=== PATIENT | female | born 1930 | race Caucasian/White ===

== ENCOUNTER → 2016-11-18 | Outpatient (CLI) | payer MEDICARE, OTHER | LOC: RAD 08:04 | PROVIDERS: ATTEND Internal Medicine | DX: C18.2 Malignant neoplasm of ascending colon (principal) | CPT/HCPCS: 71260; 74177 ==

== ENCOUNTER → 2016-12-05 | Outpatient (CLI) | payer MEDICARE, OTHER | LOC: RAD 18:54 | PROVIDERS: ATTEND Internal Medicine | DX: C18.2 Malignant neoplasm of ascending colon (principal) | CPT/HCPCS: 78815; A9552 ==

== ENCOUNTER → 2017-04-18 | Outpatient (CLI) | payer MEDICARE, OTHER ==
[2017-04-18 12:12] LABS: ABSOLUTE BASOPHILS # (AUTO) 0.1 10^3/uL (0.0-0.2); ABSOLUTE EOSINOPHILS # (AUTO) 0.4 10^3/uL (0.0-0.6); ABSOLUTE MONOCYTES (AUTO) 0.8 10^3/uL (0.1-1.4); ABSOLUTE NEUT (AUTO) 5.8 10^3/uL (1.7-8.2); BASOPHILS % (AUTO) 1.1 % (0-2); EOSINOPHILS % (AUTO) 5.3 % (0-6); HEMATOCRIT 38.2 % (36.0-47.0); HEMOGLOBIN 13.5 g/dL (12.0-15.5); HGB HCT DIFFERENCE 2.3; LYMPHOCYTES % (AUTO) 12.1 % (13-45); MEAN CORPUSCULAR HEMOGLOBIN 32.2 pg (27.0-33.4); MEAN CORPUSCULAR HGB CONC 35.5 g/dL (32.0-36.0); MEAN CORPUSCULAR VOLUME 91 fl (80-97); MONOCYTES % (AUTO) 9.5 % (3-13); RED CELL DISTRIBUTION WIDTH 14.1 % (11.5-14.0)
[2017-04-18 12:21] LABS: PROTHROMBIN TIME 13.5 SEC (11.4-15.4)
[2017-04-18 12:22] LABS: PARTIAL THROMBOPLASTIN TIME 35.4 SEC (23.5-35.8)
[2017-04-18 12:47] LABS: ALANINE AMINOTRANSFERASE 42 U/L (9-52); ALBUMIN 4.6 g/dL (3.5-5.0); ALKALINE PHOSPHATASE 84 U/L (38-126); ANION GAP 13 (5-19); ASPARTATE AMINO TRANSFERASE 38 U/L (14-36); BILIRUBIN,DIRECT 0.4 mg/dL (0.0-0.4); BILIRUBIN,TOTAL 0.7 mg/dL (0.2-1.3); BLOOD UREA NITROGEN 28 mg/dL (7-20); CALCIUM 9.5 mg/dL (8.4-10.2); CARBON DIOXIDE 21 mmol/L (22-30); CHLORIDE 105 mmol/L (98-107); CREATININE RESULT 1.08 mg/dL (0.52-1.25); GLUCOSE 106 mg/dL (75-110); POTASSIUM 5.2 mmol/L (3.6-5.0); SODIUM 139.1 mmol/L (137-145); TOTAL PROTEIN 7.9 g/dL (6.3-8.2)
[2017-04-18 13:17] LABS: CARCINOEMBRYONIC ANTIGEN 17.3 ng/mL (<3.0)
== END ==
LOC: OD 10:37
PROVIDERS: ATTEND Surgery
DX: Z85.038 Personal history of other malignant neoplasm of large intestine (principal); R10.9 Unspecified abdominal pain
CPT/HCPCS: 36415; 80053; 82378; 85025; 85610; 85730

== ENCOUNTER → 2017-04-21 | Outpatient (CLI) | payer MEDICARE, OTHER ==
--- NOTE | 2017-04-21 14:57 | RADIOLOGY REPORT (SQ) ---
EXAM DESCRIPTION: CT ABD/PELVIS WITH IV ORAL COMPLETED DATE/TIME: 04/21/2017 9:22 am REASON FOR STUDY: UNSPEC ABD PAIN (R10.9), PERSONAL HX OF OTHE RMALIGNANT NEOPLASM OF LARGE I R10.9 UNSPECIFIED ABDOMINAL PAIN Z85.038 PERSONAL HISTORY OF MALIGNANT NEOPLASM OF LARGE INTE COMPARISON: PET-CT 12/05/2016 CT chest abdomen and pelvis 05/13/2016, 11/18/2016 CT abdomen pelvis 01/25/2016 TECHNIQUE: CT scan of the abdomen and pelvis performed using helical scanning technique with dynamic intravenous contrast injection. Patient drank oral contrast. Images reviewed with lung, soft tissue , and bone windows. Reconstructed coronal and sagittal MPR images reviewed. Delayed images for evalua tion of the urinary system also acquired. All images stored on PACS. All CT scanners at this facility use dose modulation, iterative reconstruction, and/or weight based d osing when appropriate to reduce radiation dose to as low as reasonably achievable (ALARA). [facility]: Dose Right [facility]: CareDose [facility]: Dose Right [facility]: Teradose 4D [facility]: [employer] CONTRAST TYPE AND DOSE: contrast/concentration: Isovue 370.00 mg/ml; Total Contrast Delivered: 91.0 ml; Total Saline Delivered: 70.0 ml RENAL FUNCTION: Creatinine 1.08 RADIATION DOSE: Up-to-date CT equipment and radiation dose reduction techniques were employed. CTDIv ol: 18.2 - 18.6 mGy. DLP: 1786 mGy-cm.. LIMITATIONS: None. FINDINGS: LOWER CHEST: No significant findings. No nodules or infiltrates. LIVER: Normal size. No masses. No dilated ducts. Nodular surface suggesting cirrhosis. Stable 1.7 cm hepatic cyst at the falciform ligament. SPLEEN: Normal size. No focal lesions. PANCREAS: No masses. No significant calcifications. No adjacent inflammation or peripancreatic fluid collections. Pancreatic duct not dilated. GALLBLADDER: Surgically absent ADRENAL GLANDS: No significant masses or asymmetry. RIGHT KIDNEY AND URETER: No solid masses. Right lower pole 1.4 cm and 2.6 cm cortical cysts No signi ficant calcifications. No hydronephrosis or hydroureter. LEFT KIDNEY AND URETER: No solid masses. Left renal pelvis parapelvic cysts. No significant calcifi cations. No hydronephrosis or hydroureter. AORTA AND VESSELS: Heavily calcified abdominal aorta and renal arteries without aneurysm. Less than 50% stenosis celiac artery, superior mesenteric artery proximally. AV shunting in the left adnexa wi th a prominent left gonadal vein on coronal image 54. Patient may have pelvic congestion syndrome. RETROPERITONEUM: No retroperitoneal adenopathy, hemorrhage or masses. BOWEL AND PERITONEAL CAVITY: No masses or inflammatory changes. No free fluid or peritoneal masses. There is oral contrast throughout the gastrointestinal tract. Post right hemicolectomy. No evidence of bowel obstruction. There are descending and sigmoid colon diverticuli without definite CT signs of acute diverticulitis. No diverticular abscess or perforation is identified. APPENDIX: Surgically absent PELVIS: No mass. No free fluid. Normal bladder. Normal size postmenopausal female pelvic organs. P rominent left gonadal vein on coronal reconstruction image 54, suggests AV shunting in the left adnex a. Question pelvic congestion syndrome. ABDOMINAL WALL: Fat containing umbilical hernia BONES: Advanced osteoarthritis both hips OTHER: No other significant finding. IMPRESSION: No acute findings. TECHNICAL DOCUMENTATION: JOB ID: [id number] Quality ID # [id number]: Final reports with documentation of one or more dose reduction techniques (e.g., Au tomated exposure control, adjustment of the mA and/or kV according to patient size, use of iterative reconstruction technique) 2010 [employer]- All Rights Reserved
== END ==
LOC: RAD 08:30
PROVIDERS: ATTEND Surgery
DX: R10.9 Unspecified abdominal pain (principal); Z85.038 Personal history of other malignant neoplasm of large intestine; K42.9 Umbilical hernia without obstruction or gangrene
CPT/HCPCS: 74177

== ENCOUNTER → 2017-04-26 | Outpatient (CLI) | payer MEDICARE, OTHER ==
--- NOTE | 2017-04-26 13:39 | RADIOLOGY REPORT (SQ) ---
EXAM DESCRIPTION: CT CHEST WITH COMPLETED DATE/TIME: 04/26/2017 8:17 am REASON FOR STUDY: EMPHYSEMA J43.9 EMPHYSEMA, UNSPECIFIED COMPARISON: 11/18/2016 TECHNIQUE: CT scan of the chest performed using helical scanning technique with dynamic intravenous contrast injection. Images reviewed with lung, soft tissue and bone windows. Reconstructed coronal and sagittal MPR images reviewed. All images stored on PACS. All CT scanners at this facility use dose modulation, iterative reconstruction, and/or weight based d osing when appropriate to reduce radiation dose to as low as reasonably achievable (ALARA). [facility]: Dose Right [facility]: CareDose [facility]: Dose Right [facility]: Teradose 4D [facility]: [employer] CONTRAST TYPE AND DOSE: contrast/concentration: Isovue 370.00 mg/ml; Total Contrast Delivered: 80.0 ml; Total Saline Delivered: 55.0 ml RENAL FUNCTION: Creatinine 1.1 BUN 28 RADIATION DOSE: Up-to-date CT equipment and radiation dose reduction techniques were employed. CTDIv ol: 6.5 mGy. DLP: 235 mGy-cm. . LIMITATIONS: None. FINDINGS: LUNGS AND PLEURA: There is a 10 x 12 mm opacification in the medial aspect of the right lo wer hemithorax adjacent to the mediastinum. This is seen on image 100 series 4. No other pulmonary abnormality is demonstrated. HILAR AND MEDIASTINAL STRUCTURES: There are some precarinal nodes that are stable. HEART AND VASCULAR STRUCTURES: No aneurysm or dissection. No central pulmonary emboli. No pericardi al effusion. HARDWARE: None in the chest. UPPER ABDOMEN: The spleen appears slightly prominent. This is difficult to assess, because the entir e spleen is not included in the study. THYROID AND OTHER SOFT TISSUES: No masses. No adenopathy. BONES: No significant finding. OTHER: No other significant finding. IMPRESSION: 1. There is a 10 x 12 mm opacity in the medial right lung base. Uncertain etiology. P ossible pleural/ parenchymal scarring, except that is not seen on the prior study. Possible limited inflammatory reaction. Neoplasm cannot be excluded. 2. The spleen may be enlarged. Consider ultrasound for further evaluation. 3. There are some stable mediastinal nodes. TECHNICAL DOCUMENTATION: JOB ID: [id number] Quality ID # 436: Final reports with documentation of one or more dose reduction techniques (e.g., Au tomated exposure control, adjustment of the mA and/or kV according to patient size, use of iterative reconstruction technique) 2010 [employer]- All Rights Reserved
== END ==
LOC: RAD 07:41
PROVIDERS: ATTEND Surgery
DX: J43.9 Emphysema, unspecified (principal)
CPT/HCPCS: 71260

== ENCOUNTER 2017-05-31 08:20 | Day surgery (SDC) | payer MEDICARE, OTHER ==
[~2017-05-31 08:20] MED LIST: DIPHENHYDRAMINE HCL 50 MG/ML VIAL ONE; EPINEPHRINE INJ 1 MG/10 ML DISP.SYRIN ONE; FLUMAZENIL INJ 0.5 MG/5 ML VIAL ONE; GLUCAGON,HUMAN RECOMB 1 MG INJ ONE; NALOXONE HCL INJ/PF 0.4 MG/1 ML SDV ONE; ONDANSETRON HCL INJ/PF 4 MG/2 ML SDV ONE
[2017-05-31] MEDS: MIDAZOLAM 2 MG/2 ML INJ ONE ×4 (10:58→11:30)
[2017-05-31] MEDS: FENTANYL CITRATE INJ/PF 100 MCG/2 ML AMPUL ONE ×3 (11:00→11:24)
--- NOTE | 2017-05-31 12:16 | Operative Report ---
Operative Report DATE OF SURGERY: 05/31/17 PREOPERATIVE DIAGNOSIS: Abdominal pain, history of colon cancer, elevated CEA. POSTOPERATIVE DIAGNOSIS: Same. Anastomotic polyps. Proximal sigmoid colon polyp. Diverticulosis of the colon. OPERATION: Esophagogastroduodenoscopy. Colonoscopy with anastomotic polyp biopsies. Snare polypectomy of sigmoid colon polyp. SURGEON: CINTHIA BRADY ANESTHESIA: Moderate Sedation TISSUE REMOVED OR ALTERED: Anastomotic polyps. Proximal sigmoid colon polyp. COMPLICATIONS: None ESTIMATED BLOOD LOSS: Minimal INTRAOPERATIVE FINDINGS: Polypoid mass along the coloileal anastomosis involving about half of the anastomosis. Scattered diverticuli throughout the colon. Half centimeter sessile polyp at the proximal aspect of the sigmoid colon. Normal-appearing stomach and esophagus and duodenum. PROCEDURE: Informed consent was obtained. Patient was brought to the endoscopy suite. IV sedation with Versed and fentanyl was administered. Endoscope was passed via the patient's mouth into the second portion of the duodenum. Duodenum appeared to be normal. The stomach mucosa appeared normal. There were no ulcers. Retroflexed view demonstrated a normal-appearing GE junction. The esophagus appeared normal. Patient was repositioned. Digital rectal exam revealed no palpable perianal masses. Endoscope was passed via the patient's anus it was fed to the transverse colon ileal anastomosis. At the anastomosis encompassing about half of the anastomosis there was friable polypoid-like mass. Multiple biopsies were taken of this area. The bowel prep was fair with the liquid stool throughout the colon requiring aspiration and irrigation to obtain adequate visualization. The colon was markedly redundant making the visualization difficult as well. There were scattered diverticuli throughout the colon especially the sigmoid colon. At the proximal aspect of the sigmoid colon there was 1/2 cm sessile polyp which was snare polypectomy. The specimen was retrieved. The specimen came out in 2 pieces. Remainder of the sigmoid colon appeared normal other than the diverticuli. The rectum appeared normal. Patient tolerated procedure well with no apparent complications and was taken to the recovery area in stable condition. Endoscopy remarkable for polypoid lesion along the anastomosis.will await biopsy report. Proximal aspect of the sigmoid colon sessile polyp status post successful snare polypectomy. Will await biopsy report. I will follow-up with the patient.
--- NOTE | 2017-05-31 12:18 | PDOC DISCHARGE SUMMARY ---
Discharge Summary (SDC) - Discharge Final Diagnosis: Anastomotic polyps. Proximal sigmoid colon polyp. Diverticulosis of the colon. History of colon cancer. Date of Surgery: 05/31/17 Discharge Date: 05/31/17 Condition: Good Treatment or Instructions: Esophagogastroduodenoscopy. Colonoscopy with biopsies of anastomotic polyps. Snare polypectomy of sigmoid colon polyp. May discharge patient home when met discharge criteria. Follow-up with me in 1-2 weeks. Do not use Ambien for the next 2 days. May resume Ambien after 2 days. Otherwise resume all home medications. Referrals: ARACELI ROSE MD [Primary Care Provider] - Discharge Diet: As Tolerated Discharge Activity: Activity As Tolerated Report the Following to Your Physician Immediately: Unusual Bleeding
[2017-05-31 13:12] VITALS: BP 145/61
== END 2017-05-31 13:20 | disposition home or self-care (01) ==
LOC: END 08:20
PROVIDERS: ATTEND Surgery
PROC: 0DBN8ZX Excision of Sigmoid Colon, Via Natural or Artificial Opening Endoscopic, Diagnostic (ICD-10-PCS; principal; 2017-05-31 10:00)
PROC: 0DBE8ZX Excision of Large Intestine, Via Natural or Artificial Opening Endoscopic, Diagnostic (ICD-10-PCS; 2017-05-31 10:00)
PROC: 0DJ08ZZ Inspection of Upper Intestinal Tract, Via Natural or Artificial Opening Endoscopic (ICD-10-PCS; 2017-05-31 10:00)
DX: K63.5 Polyp of colon (principal); K57.30 Diverticulosis of large intestine without perforation or abscess without bleeding; R97.0 Elevated carcinoembryonic antigen [CEA]; Z85.038 Personal history of other malignant neoplasm of large intestine; E03.9 Hypothyroidism, unspecified; I10 Essential (primary) hypertension; R10.9 Unspecified abdominal pain; M19.90 Unspecified osteoarthritis, unspecified site; Z87.891 Personal history of nicotine dependence; Z79.899 Other long term (current) drug therapy
CPT/HCPCS: 43235; 45380; 45385; 88305 ×2; J2250; J3010; J0171; J1200; J1610; J2310; J2405; J3490

== ENCOUNTER → 2017-12-19 | Outpatient (CLI) | payer MEDICARE, OTHER ==
--- NOTE | 2017-12-19 14:23 | RADIOLOGY REPORT (SQ) ---
EXAM DESCRIPTION: CT CHEST WITHOUT COMPLETED DATE/TIME: 12/19/2017 1:11 pm REASON FOR STUDY: COLON CA (C18.2) C18.2 MALIGNANT NEOPLASM OF ASCENDING COLON COMPARISON: 04/26/2017 TECHNIQUE: CT scan performed of the chest without intravenous contrast. Images reviewed with lung, soft tissue and bone windows. Reconstructed coronal and sagittal MPR images reviewed. All images st ored on PACS. All CT scanners at this facility use dose modulation, iterative reconstruction, and/or weight based d osing when appropriate to reduce radiation dose to as low as reasonably achievable (ALARA). [facility]: Dose Right [facility]: CareDose [facility]: Dose Right [facility]: Teradose 4D [facility]: [employer] RADIATION DOSE: CT Rad equipment meets quality standard of care and radiation dose reduction techniq ues were employed. CTDIvol: 6.0 mGy. DLP: 247 mGy-cm. mGy. LIMITATIONS: No technical limitations. FINDINGS: LUNGS AND PLEURA: There has been interval development of bilateral patchy reticulonodular primarily pleural-based lesions with relative sparing of the left upper lobe. Largest nodule is part solid measuring about 1.5 cm in the lateral segment of the middle lobe. No effusions. HILAR AND MEDIASTINAL STRUCTURES: Stable small mediastinal nodes measuring up to about 1 cm in short axis. No bulky adenopathy. HEART AND VASCULAR STRUCTURES: No aneurysm. No pericardial effusion. UPPER ABDOMEN: Cirrhosis. THYROID AND OTHER SOFT TISSUES: No masses. No adenopathy. BONES: No significant finding. HARDWARE: None in the chest. OTHER: No other significant findings. IMPRESSION: Bilateral lung nodules could represent metastatic disease, inflammatory or infectious pr ocess. TECHNICAL DOCUMENTATION: JOB ID: [id number] Quality ID # 436: Final reports with documentation of one or more dose reduction techniques (e.g., Au tomated exposure control, adjustment of the mA and/or kV according to patient size, use of iterative reconstruction technique) 2010 [employer]- All Rights Reserved Reading location - IP/workstation name: [email or web address]
== END ==
LOC: RAD 12:50
PROVIDERS: ATTEND Internal Medicine
DX: C18.2 Malignant neoplasm of ascending colon (principal); R91.8 Other nonspecific abnormal finding of lung field
CPT/HCPCS: 71250

== ENCOUNTER → 2018-02-03 | Outpatient (CLI) | payer MEDICARE, OTHER ==
--- NOTE | 2018-02-03 14:25 | RADIOLOGY REPORT (SQ) ---
EXAM DESCRIPTION: CT CHEST WITHOUT COMPLETED DATE/TIME: 02/03/2018 1:00 pm REASON FOR STUDY: C18.2 MALIGNANT NEOPLASM OF ASCENDING COLON C18.2 MALIGNANT NEOPLASM OF ASCENDING COLON COMPARISON: 12/19/2017 TECHNIQUE: CT scan performed of the chest without intravenous contrast. Images reviewed with lung, soft tissue and bone windows. Reconstructed coronal and sagittal MPR images reviewed. All images st ored on PACS. All CT scanners at this facility use dose modulation, iterative reconstruction, and/or weight based d osing when appropriate to reduce radiation dose to as low as reasonably achievable (ALARA). [facility]: Dose Right [facility]: CareDose [facility]: Dose Right [facility]: Teradose 4D [facility]: [employer] RADIATION DOSE: CT Rad equipment meets quality standard of care and radiation dose reduction techniq ues were employed. CTDIvol: 6.6 mGy. DLP: 259 mGy-cm. mGy. LIMITATIONS: No technical limitations. FINDINGS: LUNGS AND PLEURA: Apical pleural thickening. There are areas of scarring in each lung, ri ght more than left. Nodules described on the prior report have resolved. HILAR AND MEDIASTINAL STRUCTURES: Nonspecific mediastinal nodes are stable. HEART AND VASCULAR STRUCTURES: No aneurysm. No pericardial effusion. UPPER ABDOMEN: No significant findings. Limited exam. THYROID AND OTHER SOFT TISSUES: No masses. No adenopathy. BONES: No osseous lesions are seen. HARDWARE: None in the chest. OTHER: No other significant findings. IMPRESSION: Chronic pulmonary findings. It appears that the nodules seen on the prior study where i n fact infectious or inflammatory. The appearance of the chest does not suggest metastatic disease. TECHNICAL DOCUMENTATION: JOB ID: [id number] Quality ID # 436: Final reports with documentation of one or more dose reduction techniques (e.g., Au tomated exposure control, adjustment of the mA and/or kV according to patient size, use of iterative reconstruction technique) 2010 [employer] All Rights Reserved Reading location - IP/workstation name: [email or web address]
== END ==
LOC: RAD 14:19
PROVIDERS: ATTEND Internal Medicine
DX: C18.2 Malignant neoplasm of ascending colon (principal)
CPT/HCPCS: 71250

== ENCOUNTER → 2018-04-20 | Outpatient (CLI) | payer MEDICARE, OTHER ==
--- NOTE | 2018-04-20 10:35 | RADIOLOGY REPORT (SQ) ---
EXAM DESCRIPTION: CT ABD/PELVIS WITH IV ORAL COMPLETED DATE/TIME: 04/20/2018 9:31 am REASON FOR STUDY: COLON CA C18.2 MALIGNANT NEOPLASM OF ASCENDING COLON COMPARISON: 04/21/2017 TECHNIQUE: CT scan of the abdomen and pelvis performed with intravenous and oral contrast using alfredo jo scanning technique with dynamic intravenous contrast injection. Images reviewed with lung, soft t issue, and bone windows. Reconstructed coronal and sagittal MPR images reviewed. Delayed images for e valuation of the urinary system also acquired. All images stored on PACS. All CT scanners at this facility use dose modulation, iterative reconstruction, and/or weight based d osing when appropriate to reduce radiation dose to as low as reasonably achievable (ALARA). [facility]: Dose Right [facility]: CareDose [facility]: Dose Right [facility]: Teradose 4D [facility]: [employer] CONTRAST TYPE AND DOSE: 93 cc Omnipaque 350- low osmolar. RENAL FUNCTION: Creatinine 1.2 RADIATION DOSE: . LIMITATIONS: None. FINDINGS: LOWER CHEST: No significant findings. No nodules or infiltrates. LIVER: Sub capsular nodularity. Stable cyst near the falciform ligament. SPLEEN: Normal size. No focal lesions. PANCREAS: No masses. No significant calcifications. No adjacent inflammation or peripancreatic fluid collections. Pancreatic duct not dilated. GALLBLADDER: Surgically absent. ADRENAL GLANDS: No significant masses or asymmetry. RIGHT KIDNEY AND URETER: Cortical cysts. No solid masses. No significant calcifications. No hydr onephrosis or hydroureter. LEFT KIDNEY AND URETER: Parapelvic cysts. No solid masses. No significant calcifications. No hyd ronephrosis or hydroureter. AORTA AND VESSELS: No aneurysm. RETROPERITONEUM: No retroperitoneal adenopathy, hemorrhage or masses. BOWEL AND PERITONEAL CAVITY: Prior hemicolectomy. Sigmoid diverticulosis. No ascites or free air. APPENDIX: Surgically absent. PELVIS: No significant masses. Normal bladder. No free fluid. ABDOMINAL WALL: No significant hernia. BONES: No acute findings. OTHER: No other significant finding. IMPRESSION: Stable exam. No evidence of local recurrence or metastatic disease. TECHNICAL DOCUMENTATION: JOB ID: [id number] Quality ID # [id number]: Final reports with documentation of one or more dose reduction techniques (e.g., Au tomated exposure control, adjustment of the mA and/or kV according to patient size, use of iterative reconstruction technique) 2010 [employer]- All Rights Reserved Reading location - IP/workstation name: [email or web address]
== END ==
LOC: RAD 08:34
PROVIDERS: ATTEND Physician Assistant Medical
DX: C18.2 Malignant neoplasm of ascending colon (principal)
CPT/HCPCS: 74177; 82565

== ENCOUNTER → 2018-08-16 | Outpatient (CLI) | payer MEDICARE, OTHER ==
--- NOTE | 2018-08-16 12:36 | RADIOLOGY REPORT (SQ) ---
EXAM DESCRIPTION: CT LTD RENAL STONE PROTOCOL ON COMPLETED DATE/TIME: 08/16/2018 12:17 pm REASON FOR STUDY: R10.9 UNSPECIFIED ABDOMINAL PAIN R31.29 OTHER MICROSCOPIC HEMATURIA R10.9 UNSPECI FIED ABDOMINAL PAIN R31.29 OTHER MICROSCOPIC HEMATURIA COMPARISON: 04/20/2018 TECHNIQUE: CT scan of the abdomen and pelvis performed without intravenous or oral contrast. Images reviewed with lung, soft tissue, and bone windows. Reconstructed coronal and sagittal MPR images revi ewed. All images stored on PACS. All CT scanners at this facility use dose modulation, iterative reconstruction, and/or weight based d osing when appropriate to reduce radiation dose to as low as reasonably achievable (ALARA). [facility]: Dose Right [facility]: CareDose [facility]: Dose Right [facility]: Teradose 4D [facility]: Smart [employer] RADIATION DOSE: CT Rad equipment meets quality standard of care and radiation dose reduction techniq ues were employed. CTDIvol: 15.7 mGy. DLP: 813 mGy-cm.mGy. LIMITATIONS: None. FINDINGS: LOWER CHEST: Enlarged heart, stable. NON-CONTRASTED LIVER, SPLEEN, ADRENALS: Evaluation limited by lack of IV contrast. No identified sign ificant masses. Unchanged hypoattenuation along the falciform ligament. PANCREAS: No masses. No peripancreatic inflammatory changes. GALLBLADDER: Surgically absent. RIGHT KIDNEY AND URETER: No suspicious masses. Stable right renal cyst. Assessment limited by lack of IV contrast. No significant calcifications. No hydronephrosis or hydroureter. LEFT KIDNEY AND URETER: No suspicious masses. Assessment limited by lack of IV contrast. No signifi cant calcifications. No hydronephrosis or hydroureter. AORTA AND RETROPERITONEUM: Scattered aortoiliac atherosclerosis. No aneurysm. BOWEL AND PERITONEAL CAVITY: Scattered colonic diverticula. No evidence of intestinal obstruction. No focal bowel wall thickening. Evidence of prior partial right colon resection. APPENDIX: Surgically absent. PELVIS, BLADDER, AND ABDOMINAL WALL:No abnormal masses. No free fluid. Bladder normal. BONES: No acute bony abnormality. No discrete osseous lesions. OTHER: No other significant finding. IMPRESSION: No evidence of nephrolithiasis or obstructive uropathy. No additional evidence of acute intra-abdominal/pelvic process. COMMENT: Quality ID # 436: Final reports with documentation of one or more dose reduction techniques (e.g., Automated exposure control, adjustment of the mA and/or kV according to patient size, use of iterative reconstruction technique) TECHNICAL DOCUMENTATION: JOB ID: [id number] [employer]- All Rights Reserved Reading location - IP/workstation name: [email or web address]-[email or web address]
== END ==
LOC: RAD 12:51
PROVIDERS: ATTEND Internal Medicine
DX: R10.9 Unspecified abdominal pain (principal); R31.29 Other microscopic hematuria
CPT/HCPCS: 76380

== ENCOUNTER → 2019-03-21 | Outpatient (CLI) | payer MEDICARE, OTHER ==
--- NOTE | 2019-03-21 15:13 | RADIOLOGY REPORT (SQ) ---
EXAM DESCRIPTION: CHEST 2 VIEWS COMPLETED DATE/TIME: 03/21/2019 3:04 pm REASON FOR STUDY: K74.69 OTHER CIRRHOSIS OF LIVER K74.69 OTHER CIRRHOSIS OF LIVER COMPARISON: July 2016. NUMBER OF VIEWS: Two view. TECHNIQUE: Frontal and lateral radiographic views of the chest acquired. LIMITATIONS: None. FINDINGS: LUNGS AND PLEURA: Chronic interstitial changes pleural thickening in the apices. No focal infiltrates, masses or pneumothorax. No pleural effusion. Attenuated blood vessels and flattened hem i-diaphragms. MEDIASTINUM AND HILAR STRUCTURES: No masses. No contour abnormalities. HEART AND VASCULAR STRUCTURES: Heart normal in size and contour. No evidence for failure. BONES: No acute findings. Degenerative changes in the spine. HARDWARE: None in the chest. OTHER: No other significant finding. IMPRESSION: COPD. CHRONIC SCARRING. NO ACUTE RADIOGRAPHIC FINDING IN THE CHEST. TECHNICAL DOCUMENTATION: JOB ID: [id number] [employer]- All Rights Reserved Reading location - IP/workstation name: [email or web address]
[2019-03-21 15:42] LABS: HEMATOCRIT 35.4 % (36.0-47.0); MEAN CORPUSCULAR HEMOGLOBIN 30.2 pg (27.0-33.4); MEAN CORPUSCULAR HGB CONC 33.9 g/dL (32.0-36.0); MEAN CORPUSCULAR VOLUME 89 fl (80-97); PLATELET COUNT 248 10^3/uL (150-450); RED BLOOD COUNT 3.97 10^6/uL (3.72-5.28)
[2019-03-21 16:16] LABS: ALANINE AMINOTRANSFERASE 25 U/L (9-52); ALBUMIN 4.3 g/dL (3.5-5.0); ALKALINE PHOSPHATASE 69 U/L (38-126); ANION GAP 11 (5-19); ASPARTATE AMINO TRANSFERASE 23 U/L (14-36); BILIRUBIN,DIRECT 0.3 mg/dL (0.0-0.4); BILIRUBIN,TOTAL 0.5 mg/dL (0.2-1.3); BLOOD UREA NITROGEN 25 mg/dL (7-20); CALCIUM 9.4 mg/dL (8.4-10.2); CARBON DIOXIDE 23 mmol/L (22-30); CHLORIDE 105 mmol/L (98-107); GLUCOSE 116 mg/dL (75-110); TOTAL PROTEIN 7.7 g/dL (6.3-8.2)
[2019-03-21 16:24] LABS: POTASSIUM 6.1 mmol/L (3.6-5.0)
== END ==
LOC: RAD 14:36
PROVIDERS: ATTEND Internal Medicine Gastroenterology
DX: K74.69 Other cirrhosis of liver (principal); J44.9 Chronic obstructive pulmonary disease, unspecified
CPT/HCPCS: 36415; 71046; 80048; 80076; 82105; 82728; 85027

== ENCOUNTER 2019-03-23 14:51 | Emergency (ER) | payer MEDICARE ==
--- NOTE | 2019-03-23 16:29 | ER Document Report ---
ED Medical Screen (RME) - General Chief Complaint: Abnormal Lab Results Stated Complaint: ABNORMAL LAB Time Seen by Provider: 03/23/19 16:23 Primary Care Provider: JACKELINE TRENT MD [Primary Care Provider] - Follow up as needed Mode of Arrival: Ambulatory Information source: Patient Notes: 89-year-old female presented to ED for complaint of elevated potassium. She st ates she was sent over by [place]. She states she had a blood draw yesterday and today and they sent her to the ER because her potassium was high there is a slip and says that her potassium was 6.0. When I looked at her lab specimen in the computer it is 6.0. I have put a copy of the lab slip in her chart. Patient is alert oriented respirations regular and unlabored speaking in full sentences. She states she is a little tired but otherwise she is not having any problems. 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 fib. She states she has had a colon resection. She states she was a former smoker but does not smoke drink or do any drugs at this time. I have greeted and performed a rapid initial assessment of this patient. A com prehensive ED assessment and evaluation of the patient, analysis of test results and completion of medical decision making process will be conducted by an additional ED providers. Dictation of this chart was performed using voice recognition software; therefore, there may be some unintended grammatical errors. TRAVEL OUTSIDE OF THE [place] IN LAST 30 DAYS: No - Related Data Allergies/Adverse Reactions: Sulfa (Sulfonamide Antibiotics) Allergy (Intermediate, Verified 05/31/17 08:36) FLU-LIKE SYMPTOMS Penicillins Allergy (Mild, Verified 05/31/17 08:36) Hives pneumococcal vaccine Allergy (Verified 05/31/17 08:36) Arm Marcs Past Medical History - Past Medical History Cardiac Medical History: Reports: Hx Hypercholesterolemia, Hx Hypertension Denies: Hx Atrial Fibrillation, Hx Congestive Heart Failure, Hx Coronary Artery Disease, Hx Heart Attack, Hx Peripheral Vascular Disease, Hx Pulmonary Embolism, Hx Heart Murmur Pulmonary Medical History: Reports: Hx COPD, Hx Sleep Apnea - CPAP Denies: Hx Asthma, Hx Bronchitis, Hx Pneumonia, Hx Respiratory Failure, Hx Tuberculosis Neurological Medical History: Denies: Hx Cerebrovascular Accident, Hx Seizures Endocrine Medical History: Reports: Hx Hypothyroidism. Denies: Hx Graves' Disease, Hx Hyperthyroidism Renal/ Medical History: Denies: Hx End Stage Renal Disease, Hx Kidney Stones, Hx Peritoneal Dialysis Malignancy Medical History: Denies: Hx Leukemia, Hx Lung Cancer GI Medical History: Reports: Hx Diverticulitis. Denies: Hx Crohn's Disease, Hx Gastroesophageal Reflux Disease, Hx Hiatal Hernia, Hx Irritable Bowel, Hx Liver Failure, Hx Pancreatitis, Hx Ulcer Musculoskeltal Medical History: Reports Hx Arthritis - RA, Denies Hx Fibromyalgia, Denies Hx Muscular Dystrophy, Denies Hx Systemic Lupus Erythematosus Psychiatric Medical History: Traumatic Medical History: Denies: Hx Fractures Infectious Medical History: Denies: Hx HIV Past Surgical History: Reports: Hx Cholecystectomy, Hx Tonsillectomy. Denies: Hx Appendectomy, Hx Bowel Surgery, Hx Section, Hx Colostomy, Hx Coronary Artery Bypass Graft, Hx Gastric Bypass Surgery, Hx Herniorrhaphy, Hx Hysterectomy, Hx Mastectomy, Hx Open Heart Surgery, Hx Pacemaker, Hx Tubal Ligation - Immunizations Hx Diphtheria, Pertussis, Tetanus Vaccination: Yes Influenza Administration Date for 05/2017 - 10/2017 Season: 04/29/17 Physical Exam - Vital signs Vitals: Temp Pulse Resp BP Pulse Ox 98.4 F 70 18 164/65 H 96 03/23/19 15:19 03/23/19 15:19 03/23/19 15:19 03/23/19 15:19 03/23/19 15:19 Course - Vital Signs Vital signs: Temp Pulse Resp BP Pulse Ox 98.4 F 70 18 164/65 H 96 03/23/19 15:19 03/23/19 15:19 03/23/19 15:19 03/23/19 15:19 03/23/19 15:19 Doctor's Discharge - Discharge Referrals: JACKELINE TRENT MD [Primary Care Provider] - Follow up as needed
[2019-03-23] MEDS ORDERED: NORMAL SALINE 500 ML IV ONE (16:31)
[2019-03-23 17:30] LABS: ABSOLUTE BASOPHILS # (AUTO) 0.1 10^3/uL (0.0-0.2); ABSOLUTE EOSINOPHILS # (AUTO) 0.5 10^3/uL (0.0-0.6); ABSOLUTE LYMPHOCYTES (AUTO) 0.9 10^3/uL (0.5-4.7); ABSOLUTE MONOCYTES (AUTO) 0.8 10^3/uL (0.1-1.4); ABSOLUTE NEUT (AUTO) 6.4 10^3/uL (1.7-8.2); BASOPHILS % (AUTO) 1.3 % (0-2); EOSINOPHILS % (AUTO) 5.7 % (0-6); HEMATOCRIT 33.6 % (36.0-47.0); HEMOGLOBIN 11.5 g/dL (12.0-15.5); LYMPHOCYTES % (AUTO) 10.1 % (13-45); MEAN CORPUSCULAR HEMOGLOBIN 30.4 pg (27.0-33.4); MEAN CORPUSCULAR HGB CONC 34.3 g/dL (32.0-36.0); MEAN CORPUSCULAR VOLUME 89 fl (80-97); MONOCYTES % (AUTO) 9.1 % (3-13); PLATELET COUNT 267 10^3/uL (150-450); RED CELL DISTRIBUTION WIDTH 12.7 % (11.5-14.0); SEGMENTED NEUTROPHILS % (AUTO) 73.8 % (42-78); TOTAL CELLS COUNTED % (AUTO) 100 %; WHITE BLOOD COUNT 8.7 10^3/uL (4.0-10.5)
[2019-03-23 18:19] LABS: ALANINE AMINOTRANSFERASE 18 U/L (9-52); ALBUMIN 4.4 g/dL (3.5-5.0); ALKALINE PHOSPHATASE 73 U/L (38-126); ANION GAP 9 (5-19); ASPARTATE AMINO TRANSFERASE 26 U/L (14-36); BILIRUBIN,DIRECT 0.3 mg/dL (0.0-0.4); BILIRUBIN,TOTAL 0.5 mg/dL (0.2-1.3); BLOOD UREA NITROGEN 28 mg/dL (7-20); CALCIUM 9.6 mg/dL (8.4-10.2); CARBON DIOXIDE 23 mmol/L (22-30); CHLORIDE 106 mmol/L (98-107); GLUCOSE 105 mg/dL (75-110); POTASSIUM 5.6 mmol/L (3.6-5.0); TOTAL PROTEIN 8.3 g/dL (6.3-8.2)
[2019-03-23] MEDS ORDERED: NORMAL SALINE 1000 ML 1,000 ML IV ONE (18:20)
--- NOTE | 2019-03-23 19:01 | ER Document Report ---
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 Patient's only complaint is generalized fatigue that has been ongoing for 3 weeks. Patient denies any headache, nausea, vomiting, chest pain, shortness of breath, dysuria, hematuria. TRAVEL OUTSIDE OF THE [place] IN LAST 30 DAYS: No - HPI Onset: Other Onset/Duration: Gradual, Persistent Quality of pain: No pain Severity: None Pain Level: Denies Associated symptoms: None. denies: Chest pain, Productive cough, Headache, Leg swelling, Nausea, Vomiting, Shortness of breath, Weakness Exacerbated by: Walking Relieved by: Remaining still Similar symptoms previously: Yes Recently seen / treated by doctor: Yes - Related Data Allergies/Adverse Reactions: Sulfa (Sulfonamide Antibiotics) Allergy (Intermediate, Verified 05/31/17 08:36) FLU-LIKE SYMPTOMS Penicillins Allergy (Mild, Verified 05/31/17 08:36) Hives pneumococcal vaccine Allergy (Verified 05/31/17 08:36) Arm Swells Past Medical History - General Information source: Patient - Social History Smoking Status: Former Smoker Chew tobacco use (# tins/day): No Frequency of alcohol use: None Drug Abuse: None Lives with: Family Family History: Reviewed & Not Pertinent Patient has suicidal ideation: No Patient has homicidal ideation: No - Past Medical History Cardiac Medical History: Reports: Hx Hypercholesterolemia, Hx Hypertension Denies: Hx Atrial Fibrillation, Hx Congestive Heart Failure, Hx Coronary Artery Disease, Hx Heart Attack, Hx Peripheral Vascular Disease, Hx Pulmonary Embolism, Hx Heart Murmur Pulmonary Medical History: Reports: Hx COPD, Hx Sleep Apnea - CPAP Denies: Hx Asthma, Hx Bronchitis, Hx Pneumonia, Hx Respiratory Failure, Hx Tuberculosis Neurological Medical History: Denies: Hx Cerebrovascular Accident, Hx Seizures Endocrine Medical History: Reports: Hx Hypothyroidism. Denies: Hx Graves' Disease, Hx Hyperthyroidism Renal/ Medical History: Denies: Hx End Stage Renal Disease, Hx Kidney Stones, Hx Peritoneal Dialysis Malignancy Medical History: Denies: Hx Leukemia, Hx Lung Cancer GI Medical History: Reports: Hx Diverticulitis. Denies: Hx Crohn's Disease, Hx Gastroesophageal Reflux Disease, Hx Hiatal Hernia, Hx Irritable Bowel, Hx Liver Failure, Hx Pancreatitis, Hx Ulcer Musculoskeletal Medical History: Reports Hx Arthritis - RA, Denies Hx Fibromyalgia, Denies Hx Muscular Dystrophy, Denies Hx Systemic Lupus Erythematosus Psychiatric Medical History: Traumatic Medical History: Denies: Hx Fractures Infectious Medical History: Denies: Hx HIV Past Surgical History: Reports: Hx Abdominal Surgery - intestine/colon CA, Hx Cholecystectomy, Hx Tonsillectomy. Denies: Hx Appendectomy, Hx Bowel Surgery, Hx Section, Hx Colostomy, Hx Coronary Artery Bypass Graft, Hx Gastric Bypass Surgery, Hx Herniorrhaphy, Hx Hysterectomy, Hx Mastectomy, Hx Open Heart Surgery, Hx Pacemaker, Hx Tubal Ligation - Immunizations Hx Diphtheria, Pertussis, Tetanus Vaccination: Yes Review of Systems - Review of Systems Notes: REVIEW OF SYSTEMS: CONSTITUTIONAL : Denies fever, chills, or sweats. Denies recent illness. Denies weight loss, recent hospitalizations. EENT: Denies visual changes, eye pain. Denies sore throat, oral lesions, difficulty swallowing. CARDIOVASCULAR: Denies chest pain. Denies palpitations. Denies lower extremity edema. RESPIRATORY: Denies cough. Denies shortness of breath, wheezing. GASTROINTESTINAL: Denies abdominal pain or distention. Denies nausea, vomiting, or diarrhea. Denies blood in vomitus, stools, or per rectum. Denies black, tarry stools. Denies constipation. GENITOURINARY: Denies difficulty urinating, painful urination, frequency, blood in urine, or vaginal discharge. MUSCULOSKELETAL: Denies back or neck pain or stiffness. Denies joint pain or swelling. SKIN: Denies rash, lesions or sores. HEMATOLOGIC : Denies easy bruising or bleeding. LYMPHATIC: Denies swollen glands. NEUROLOGICAL: Denies confusion or altered mental status. Denies loss of consciousness. Denies dizziness or lightheadedness. Denies headache. Denies weakness or paralysis. Denies problems difficulty with ambulation, slurred speech. Denies sensory loss, numbness, or tingling. Denies seizures. PSYCHIATRIC: Denies anxiety or stress. Denies depression, suicidal ideation, or homicidal ideation. Denies visual or auditory hallucinations. Physical Exam - Vital signs Vitals: Temp Pulse Resp BP Pulse Ox 98.4 F 70 18 164/65 H 96 03/23/19 15:19 03/23/19 15:19 03/23/19 15:19 03/23/19 15:19 03/23/19 15:19 - Notes Notes: PHYSICAL EXAMINATION: GENERAL: Well-appearing, well-nourished and in no acute distress. HEAD: Atraumatic, normocephalic. EYES: Pupils equal round and reactive to light, extraocular movements intact, conjunctiva are normal. ENT: Nares patent, oropharynx clear without exudates. Dry mucous membranes. NECK: Normal range of motion, supple without lymphadenopathy LUNGS: Breath sounds clear to auscultation bilaterally and equal. No wheezes rales or rhonchi. HEART: Regular rate and rhythm without murmurs ABDOMEN: Soft, nontender, nondistended abdomen. No guarding, no rebound. No masses appreciated. Female : deferred Musculoskeletal: Normal range of motion, no pitting or edema. No cyanosis. NEUROLOGICAL: Cranial nerves grossly intact. Normal speech, normal gait. Normal sensory, motor exams PSYCH: Normal mood, normal affect. SKIN: Warm, Dry, normal turgor, no rashes or lesions noted. Course - Re-evaluation Re-evalutation: 03/23/19 19:02 Laboratory 03/23/19 03/23/19 03/23/19 17:02 17:02 17:02 WBC 8.7 RBC 3.80 Hgb 11.5 L Hct 33.6 L MCV 89 MCH 30.4 MCHC 34.3 RDW 12.7 Plt Count 267 Seg Neutrophils % 73.8 Lymphocytes % 10.1 L Monocytes % 9.1 Eosinophils % 5.7 Basophils % 1.3 Absolute Neutrophils 6.4 Absolute Lymphocytes 0.9 Absolute Monocytes 0.8 Absolute Eosinophils 0.5 Absolute Basophils 0.1 Sodium 138.4 Potassium 5.6 H Chloride 106 Carbon Dioxide 23 Anion Gap 9 BUN 28 H Creatinine 1.42 H Est GFR ( Amer) 42 L Est GFR (Non-Af Amer) 35 L Glucose 105 Calcium 9.6 Total Bilirubin 0.5 Direct Bilirubin 0.3 Neonat Total Bilirubin Not Reportable Neonat Direct Bilirubin Not Reportable Neonat Indirect Bili Not Reportable AST 26 ALT 18 Alkaline Phosphatase 73 Troponin I < 0.012 Total Protein 8.3 H Albumin 4.4 Temp Pulse Resp BP Pulse Ox 98.4 F 70 18 164/65 H 96 03/23/19 15:19 03/23/19 15:19 03/23/19 15:19 03/23/19 15:19 03/23/19 15:19 03/23/19 22:27 89-year-old female presents after outpatient blood work showed a potassium of 6.0. EKG was obtained and showed sinus bradycardia. No peak T waves. QRS within normal limits. Repeat potassium here is 5.6. Patient did receive calcium, insulin, dextrose and Lasix, IV fluids during her ED course. 03/23/19 22:27 On reevaluation patient is resting comfortably. Repeat BMP shows a potassium of 4 and a creatinine of 1.24. Repeat EKG is unchanged. Patient advised to avoid potassium rich foods. No evidence of infection which with causing the patient's fatigue. CBC shows no leukocytosis or anemia. Urinalysis not consistent with urinary tract infection. Urine culture pending. 03/23/19 22:29 Patient was evaluated and treated as appropriate for the patient's presenting symptoms and complaint, with consideration of any critical or life threatening conditions that may be associated with their obtained history and exam as noted above. All results were discussed with patient. Patient provided the opportunity to ask questions, and express concerns. Patient was educated on treatments based on their presumed diagnosis as noted above. At this time we will discharge the patient with return precautions and follow-up recommendations. Verbal discharge instructions given a the bedside. Medication warnings reviewed. Patient is in agreement with this plan and has verbalized understanding of return precautions. After careful consideration I feel that that patient can be safely discharged from the emergency department, they were advised to followup with a primary c are physician in 2-3 days. Dictation on this chart was performed using voice recognition software and may result in unintended grammatical, spelling, syntax or errors. - Vital Signs Vital signs: Temp Pulse Resp BP Pulse Ox 98.4 F 70 27 H 153/62 H 95 03/23/19 15:19 03/23/19 15:19 03/23/19 22:01 03/23/19 22:01 03/23/19 22:01 - Laboratory Result Diagrams: 03/23/19 17:02 03/23/19 21:15 Laboratory results interpreted by me: 03/23/19 03/23/19 03/23/19 17:02 17:02 19:36 Hgb 11.5 L Hct 33.6 L Lymphocytes % 10.1 L Potassium 5.6 H BUN 28 H Creatinine 1.42 H Est GFR ( Amer) 42 L Est GFR (Non-Af Amer) 35 L POC Glucose Total Protein 8.3 H Urine Protein 100 H Ur Leukocyte Esterase SMALL H 03/23/19 03/23/19 20:48 21:15 Hgb Hct Lymphocytes % Potassium BUN 26 H Creatinine Est GFR ( Amer) 50 L Est GFR (Non-Af Amer) 41 L POC Glucose 161 H Total Protein Urine Protein Ur Leukocyte Esterase - EKG Interpretation by Me EKG shows normal: Sinus rhythm Rate: Bradycardia Rhythm: NSR When compared to previous EKG there are: Previous EKG unavailable, Other - Repeat EKG shows sinus rhythm with a heart rate of 59 and a QTC of 436. Discharge - Discharge Clinical Impression: Hyperkalemia, Dehydration, HORTENCIA (acute kidney injury) Fatigue Qualifiers: Fatigue type: unspecified Qualified Code(s): R53.83 - Other fatigue Condition: Good Disposition: HOME, SELF-CARE Instructions: Dehydration ([facility]), Fatigue ([facility]), Kidney Injury ([facility]) Additional Instructions: Your initial potassium was 5.6. After fluid administration it is now 4.3. Your initial creatinine was 1.42 and now after fluid administration it is 1.24. Please avoid potassium rich foods such as banana, avocados. Please be sure to drink plenty of fluids while out in the heat. You can purchase packets of electrolyte replacement solutions such as Pedialyte or propel that you can add to plain water. This will help to make sure that you are getting adequate electrolytes in addition to fluids while working outside. Please return to the emergency department if you pass out, developed diffuse muscle cramping, have persistent vomiting, or have any other symptoms that are worrisome to you. Follow up with your [id number] hours for further care or return to the ED IMMEDIATELY if symptoms worsen or you have any concerns. If you cannot afford to follow up with your primary care physician a list of low cost clinics have been provided at the end of your discharge papers as well. Most prescribed medications have multiple side effects. The safest thing to do is when filling your prescription speak to your pharmacist regarding possible interactions with your normal home medications and over the counter medications such as Ibuprofen, Tylenol, Benadryl. If you experience any symptoms that cause you discomfort or concern you should discontinue the medication immediately and return to the emergency room or call your primary care physician. Forms: Elevated Blood Pressure Referrals: JACKELINE TRENT MD [Primary Care Provider] - Follow up as needed
[2019-03-23] MEDS ORDERED: DEXTROSE 50%-WATER 25 GM/50 ML DISP.SYRIN IV ONE (19:03)
[2019-03-23] MEDS ORDERED: CALCIUM GLUCONATE 1000 MG/10 ML INJ IV ONE (19:03)
[2019-03-23] MEDS ORDERED: INSULIN REG, HUMAN 100 UNIT/ML 3 ML VIAL (PYX) IV ONE (19:03)
[2019-03-23] MEDS ORDERED: FUROSEMIDE INJ/PF 20 MG/2 ML SDV IV ONE (19:07)
[2019-03-23 19:54] LABS: APPEARANCE,URINE SLIGHTLY-CLOUDY; BILIRUBIN,URINE NEGATIVE (NEGATIVE); COLOR,URINE YELLOW; GLUCOSE, URINE NEGATIVE (NEGATIVE); KETONES,URINE NEGATIVE (NEGATIVE); LEUKOCYTE ESTERASE,URINE SMALL (NEGATIVE); NITRITE,URINE NEGATIVE (NEGATIVE); PROTEIN,URINE 100 mg/dL (NEGATIVE); URINE SPECIFIC GRAVITY 1.014; UROBILINOGEN,URINE NEGATIVE mg/dL (<2.0)
[2019-03-23 21:43] LABS: ANION GAP 10 (5-19); BLOOD UREA NITROGEN 26 mg/dL (7-20); CALCIUM 9.3 mg/dL (8.4-10.2); CARBON DIOXIDE 24 mmol/L (22-30); CHLORIDE 106 mmol/L (98-107); GLUCOSE 85 mg/dL (75-110)
[2019-03-23 21:55] LABS: POTASSIUM 4.3 mmol/L (3.6-5.0)
[2019-03-23 22:14] VITALS: BP 153/62
--- NOTE | 2019-03-23 23:08 | EKG REPORT ---
SEVERITY:- ABNORMAL ECG - SINUS RHYTHM LEFT AXIS DEVIATION PROBABLE LEFT VENTRICULAR HYPERTROPHY : Confirmed by: Jaylon Sommer 23-Mar-2019 23:07:54
--- NOTE | 2019-03-23 23:08 | EKG REPORT ---
SEVERITY:- OTHERWISE NORMAL ECG - SINUS RHYTHM ATRIAL PREMATURE COMPLEX BORDERLINE LEFT AXIS DEVIATION : Confirmed by: Jaylon Sommer 23-Mar-2019 23:07:42
== END 2019-03-23 22:28 | disposition home or self-care (01) ==
LOC: ER 14:51
DX: E87.5 Hyperkalemia (principal); E86.0 Dehydration; N17.9 Acute kidney failure, unspecified; R53.83 Other fatigue; R00.1 Bradycardia, unspecified; I10 Essential (primary) hypertension; Z87.891 Personal history of nicotine dependence; J44.9 Chronic obstructive pulmonary disease, unspecified
CPT/HCPCS: 93005; 99283; 96361; 96374; 96375; 36415; 82962; 85025; 80053; 81001; 84484; 93010; J0610; J3490; J1940; A9270; J7030; J7040; 84132; J1815

== ENCOUNTER → 2019-03-23 | Outpatient (CLI) | payer MEDICARE, OTHER | LOC: LAB 11:32 | PROVIDERS: ATTEND Internal Medicine Gastroenterology | DX: E87.5 Hyperkalemia (principal) | CPT/HCPCS: 36415; 84132 ==

== ENCOUNTER → 2019-04-13 | Outpatient (CLI) | payer MEDICARE, OTHER ==
--- NOTE | 2019-04-13 15:00 | RADIOLOGY REPORT (SQ) ---
EXAM DESCRIPTION: CT ABD/PELVIS WITH IV ORAL COMPLETED DATE/TIME: 04/13/2019 1:17 pm REASON FOR STUDY: K74.69 OTHER CIRRHOSIS OF LIVER R16.0 HEPATOMEGALY, NOT ELSEWHERE CLASSIFIE K74.69 OTHER CIRRHOSIS OF LIVER R16.0 HEPATOMEGALY, NOT ELSEWHERE CLASSIFIED COMPARISON: 04/20/2018 and 04/21/2017. TECHNIQUE: CT scan of the abdomen and pelvis performed using helical scanning technique with dynamic intravenous contrast injection. No oral contrast. Images reviewed with lung, soft tissue, and bone windows. Reconstructed coronal and sagittal MPR images reviewed. Delayed images for evaluation of the urinary system also acquired. All images stored on PACS. All CT scanners at this facility use dose modulation, iterative reconstruction, and/or weight based d osing when appropriate to reduce radiation dose to as low as reasonably achievable (ALARA). [facility]: Dose Right [facility]: CareDose [facility]: Dose Right [facility]: Teradose 4D [facility]: [employer] CONTRAST TYPE AND DOSE: contrast/concentration: Isovue 350.00 mg/ml; Total Contrast Delivered: 95.0 ml; Total Saline Delivered: 71.0 ml RENAL FUNCTION: Creatinine 1.1. RADIATION DOSE: CT Rad equipment meets quality standard of care and radiation dose reduction techniq ues were employed. CTDIvol: 14.9 - 16.0 mGy. DLP: 1528 mGy-cm.. LIMITATIONS: None. FINDINGS: LOWER CHEST: No significant findings. No nodules or infiltrates. LIVER: Normal size. Nodular contour. Stable cyst in the anterior left lobe. No solid or enhancing masses. No dilated ducts. SPLEEN: Normal size. No focal lesions. PANCREAS: No masses. No significant calcifications. No adjacent inflammation or peripancreatic fluid collections. Pancreatic duct not dilated. GALLBLADDER: Surgically absent. ADRENAL GLANDS: No significant masses or asymmetry. RIGHT KIDNEY AND URETER: Stable cysts. No solid masses. No significant calcifications. No hydron ephrosis or hydroureter. LEFT KIDNEY AND URETER: No solid masses. No significant calcifications. No hydronephrosis or hydr oureter. AORTA AND VESSELS: No aneurysm. No dissection. Renal arteries, SMA, celiac without stenosis. RETROPERITONEUM: No retroperitoneal adenopathy, hemorrhage or masses. BOWEL AND PERITONEAL CAVITY: Scattered colonic diverticuli, particularly in the descending and sigmoi d colon. No masses or inflammatory changes. No free fluid or peritoneal masses. APPENDIX: Surgically absent. PELVIS: No mass. No free fluid. Normal bladder. ABDOMINAL WALL: No masses. No hernias. BONES: No significant or acute findings. OTHER: No other significant finding. IMPRESSION: 1. STABLE APPEARANCE OF THE LIVER WITH NODULAR CONTOUR CONSISTENT WITH CIRRHOSIS. STABLE CYST IN THE ANTERIOR LEFT LOBE. NO SOLID OR ENHANCING MASSES. 2. COLONIC DIVERTICULOSIS. NO CT FINDINGS OF DIVERTICULITIS. 3. STABLE RIGHT RENAL CYSTS. 4. NO OTHER SIGNIFICANT OR ACUTE FINDING IN THE ABDOMEN OR PELVIS ON CT SCAN WITH IV CONTRAST. TECHNICAL DOCUMENTATION: JOB ID: [id number] Quality ID # [id number]: Final reports with documentation of one or more dose reduction techniques (e.g., Au tomated exposure control, adjustment of the mA and/or kV according to patient size, use of iterative reconstruction technique) 2010 [employer]- All Rights Reserved Reading location - IP/workstation name: [email or web address]
== END ==
LOC: RAD 12:29
PROVIDERS: ATTEND Internal Medicine Gastroenterology
DX: K74.69 Other cirrhosis of liver (principal); R16.0 Hepatomegaly, not elsewhere classified; K57.30 Diverticulosis of large intestine without perforation or abscess without bleeding; Q61.02 Congenital multiple renal cysts
CPT/HCPCS: 74177; 82565

== ENCOUNTER → 2020-02-22 | Outpatient (CLI) | payer MEDICARE, OTHER ==
--- NOTE | 2020-02-22 09:20 | WOMENS IMAGING REPORT ---
EXAM DESCRIPTION: U/S ABDOMEN LIMITED IMAGES COMPLETED DATE/TIME: 02/22/2020 8:56 am REASON FOR STUDY: K74.69 OTHER CIRRHOSIS OF LIVER K74.69 OTHER CIRRHOSIS OF LIVER COMPARISON: None. TECHNIQUE: Dynamic and static grayscale images acquired of the abdomen and recorded on PACS. Additio nal selected color Doppler and spectral images recorded. LIMITATIONS: None. FINDINGS: PANCREAS: Unremarkable as visualized. LIVER: Enlarged measuring 18.8 cm. There is a nodular hepatic contour. Stable 1.9 cm anechoic lesio n, likely cyst. No intrahepatic ductal dilation. LIVER VASCULATURE: Normal directional flow of the main portal vein and hepatic veins. GALLBLADDER: Surgically absent. ULTRASOUND-DETECTED HUMPHREY'S SIGN: Not applicable. INTRAHEPATIC DUCTS AND COMMON DUCT: CBD measures 7.6 mm, likely sequelae from prior cholecystectomy. No intrahepatic ductal dilation. INFERIOR VENA CAVA: Normal flow. AORTA: No aneurysm as visualized. RIGHT KIDNEY: Normal size measuring 10.7 cm. Normal echogenicity. No solid or suspicious masses. Mu ltiple simple appearing cysts, largest measuring up to 3.3 cm. No Hydronephrosis. No calcifications. PERITONEAL AND RIGHT PLEURAL SPACE: No ascites or effusions. OTHER: No other significant findings. IMPRESSION: 1. Cirrhotic hepatic morphology with stable left lobe cyst. No ascites. 2. Cholecystectomy. 3. Stable right renal cysts. TECHNICAL DOCUMENTATION: JOB ID: [id number] 2010 [employer]- All Rights Reserved Reading location - IP/workstation name: [email or web address]
== END ==
LOC: WI 08:20
PROVIDERS: ATTEND Internal Medicine Gastroenterology
DX: K74.69 Other cirrhosis of liver (principal); K76.89 Other specified diseases of liver
CPT/HCPCS: 76705

== ENCOUNTER 2020-03-19 16:13 | Inpatient (IN) | payer MEDICARE, OTHER ==
--- NOTE | 2020-03-19 16:32 | ER Document Report ---
ED Medical Screen (RME) - General Chief Complaint: Chest Pain Stated Complaint: CHEST PAIN Time Seen by Provider: 03/19/20 16:22 Primary Care Provider: JACKELINE TRENT MD [Primary Care Provider] - Follow up as needed Mode of Arrival: Ambulatory Information source: Patient TRAVEL OUTSIDE OF THE [place] IN LAST 30 DAYS: No - HPI Notes: 03/19/20 16:39 89-year-old female with a history of A. fib on Eliquis, hypertension hypothyroidism presents to the emergency room by private vehicle after going to her 3-month checkup with her doctor today where they did an EKG and she is in rapid A. fib with RVR. She was advised to come to the emergency room. Patient reports she is having some shortness of breath but she is unsure if this is from her arrhythmia more because she has baseline shortness of breath. Patient does take her Micardis and nifedipine which she Camron took this morning. Denies any chest pain, nausea vomiting or diarrhea denies any dizziness. Patient does follow with Dr. Bagley, her hydrology professor manages her blood pressure. Patient states she has not felt any change in her rhythm or heart rate, if anything she has been complaining more of a back spasm that she has been experiencing, and this is what she originally went to her doctors to be seen about today. Denies any fevers or chills. I have greeted and performed a rapid initial assessment of this patient. A comprehensive ED assessment and evaluation of the patient, analysis of test results and completion of the medical decision making process will be conducted by additional ED providers. PHYSICAL EXAMINATION: GENERAL: Chronically ill well-nourished and in no acute distress. CV: Rapid A. fib with RVR LUNGS: No respiratory distress Musculoskeletal: Normal range of motion NEUROLOGICAL: Normal speech, normal gait. SKIN: Warm, Dry, normal turgor, no rashes or lesions noted. - Related Data Allergies/Adverse Reactions: Sulfa (Sulfonamide Antibiotics) Allergy (Intermediate, Verified 05/31/17 08:36) FLU-LIKE SYMPTOMS Penicillins Allergy (Mild, Verified 05/31/17 08:36) Hives pneumococcal vaccine Allergy (Verified 05/31/17 08:36) Arm Swells Past Medical History - Past Medical History Cardiac Medical History: Reports: Hx Hypercholesterolemia, Hx Hypertension Denies: Hx Atrial Fibrillation, Hx Congestive Heart Failure, Hx Coronary Artery Disease, Hx Heart Attack, Hx Peripheral Vascular Disease, Hx Pulmonary Embolism, Hx Heart Murmur Pulmonary Medical History: Reports: Hx COPD, Hx Sleep Apnea - CPAP Denies: Hx Asthma, Hx Bronchitis, Hx Pneumonia, Hx Respiratory Failure, Hx Tuberculosis Neurological Medical History: Denies: Hx Cerebrovascular Accident, Hx Seizures Endocrine Medical History: Reports: Hx Hypothyroidism. Denies: Hx Graves' Disease, Hx Hyperthyroidism Renal/ Medical History: Denies: Hx End Stage Renal Disease, Hx Kidney Stones, Hx Peritoneal Dialysis Malignancy Medical History: Denies: Hx Leukemia, Hx Lung Cancer GI Medical History: Reports: Hx Diverticulitis. Denies: Hx Crohn's Disease, Hx Gastroesophageal Reflux Disease, Hx Hiatal Hernia, Hx Irritable Bowel, Hx Liver Failure, Hx Pancreatitis, Hx Ulcer Musculoskeltal Medical History: Reports Hx Arthritis - RA, Denies Hx Fibromyalgia, Denies Hx Muscular Dystrophy, Denies Hx Systemic Lupus Erythematosus Psychiatric Medical History: Traumatic Medical History: Denies: Hx Fractures Infectious Medical History: Denies: Hx HIV Past Surgical History: Reports: Hx Abdominal Surgery - intestine/colon CA, Hx Cholecystectomy, Hx Tonsillectomy. Denies: Hx Appendectomy, Hx Bowel Surgery, Hx Section, Hx Colostomy, Hx Coronary Artery Bypass Graft, Hx Gastric Bypass Surgery, Hx Herniorrhaphy, Hx Hysterectomy, Hx Mastectomy, Hx Open Heart Surgery, Hx Pacemaker, Hx Tubal Ligation - Immunizations Hx Diphtheria, Pertussis, Tetanus Vaccination: Yes Doctor's Discharge - Discharge Referrals: JACKELINE TRENT MD [Primary Care Provider] - Follow up as needed
[2020-03-19] MEDS ORDERED: DILTIAZEM HCL INJ 25 MG/5 ML VIAL IV ONE (16:39)
[2020-03-19 16:48] LABS: ABSOLUTE BASOPHILS # (AUTO) 0.1 10^3/uL (0.0-0.2); ABSOLUTE EOSINOPHILS # (AUTO) 0.2 10^3/uL (0.0-0.6); ABSOLUTE LYMPHOCYTES (AUTO) 1.1 10^3/uL (0.5-4.7); ABSOLUTE MONOCYTES (AUTO) 0.6 10^3/uL (0.1-1.4); ABSOLUTE NEUT (AUTO) 6.2 10^3/uL (1.7-8.2); BASOPHILS % (AUTO) 0.9 % (0-2); EOSINOPHILS % (AUTO) 2.4 % (0-6); HEMATOCRIT 37.3 % (36.0-47.0); HEMOGLOBIN 12.2 g/dL (12.0-15.5); LYMPHOCYTES % (AUTO) 13.6 % (13-45); MEAN CORPUSCULAR HEMOGLOBIN 30.5 pg (27.0-33.4); MEAN CORPUSCULAR HGB CONC 32.7 g/dL (32.0-36.0); MEAN CORPUSCULAR VOLUME 93 fl (80-97); MONOCYTES % (AUTO) 6.8 % (3-13); PLATELET COUNT 269 10^3/uL (150-450); RED BLOOD COUNT 4.01 10^6/uL (3.72-5.28); RED CELL DISTRIBUTION WIDTH 13.9 % (11.5-14.0); SEGMENTED NEUTROPHILS % (AUTO) 76.3 % (42-78); TOTAL CELLS COUNTED % (AUTO) 100 %; WHITE BLOOD COUNT 8.2 10^3/uL (4.0-10.5)
[2020-03-19 16:50] LABS: INTERNATIONAL RATION (INR) 1.27
[2020-03-19 16:51] LABS: PARTIAL THROMBOPLASTIN TIME 39.4 SEC (23.5-35.8)
[2020-03-19 16:59] LABS: ALBUMIN 4.2 g/dL (3.5-5.0); ALKALINE PHOSPHATASE 59 U/L (38-126); ANION GAP 9 (5-19); ASPARTATE AMINO TRANSFERASE 31 U/L (14-36); BILIRUBIN,TOTAL 0.5 mg/dL (0.2-1.3); BLOOD UREA NITROGEN 25 mg/dL (7-20); CARBON DIOXIDE 21 mmol/L (22-30); CHLORIDE 109 mmol/L (98-107); CREATINE KINASE 91 U/L (30-135); GLUCOSE 128 mg/dL (75-110); POTASSIUM 4.5 mmol/L (3.6-5.0); TOTAL PROTEIN 7.7 g/dL (6.3-8.2)
[2020-03-19 17:09] LABS: CREATINE KINASE MB 1.63 ng/mL (<4.55); NT PRO BNP 2500 pg/mL (<450)
[2020-03-19 17:12] LABS: TROPONIN I < 0.012 ng/mL
[2020-03-19] MEDS ORDERED: LEVOFLOXACIN 750 MG/D5W RTU 750 MG/150 ML RTUPB IV ONE (17:16)
--- NOTE | 2020-03-19 17:28 | RADIOLOGY REPORT (SQ) ---
EXAM DESCRIPTION: CHEST SINGLE VIEW IMAGES COMPLETED DATE/TIME: 03/19/2020 4:07 pm REASON FOR STUDY: chest pain COMPARISON: Chest radiograph, 03/21/2019 EXAM PARAMETERS: NUMBER OF VIEWS: One view. TECHNIQUE: Single frontal radiographic view of the chest acquired. RADIATION DOSE: NA LIMITATIONS: None. FINDINGS: LUNGS AND PLEURA: Lungs are hyperinflated. Biapical pleural and parenchymal scarring is s table. No focal consolidation or pleural effusion. No pneumothorax. MEDIASTINUM AND HILAR STRUCTURES: No masses. Contour normal. HEART AND VASCULAR STRUCTURES: Heart normal in size. Normal vasculature. BONES: No acute findings. HARDWARE: None in the chest. OTHER: No other significant finding. IMPRESSION: Hyperinflated lungs which can be seen with obstructive lung disease. No acute cardiopul monary disease. TECHNICAL DOCUMENTATION: JOB ID: [id number] 2010 [employer]- All Rights Reserved Reading location - IP/workstation name: [email or web address]
--- NOTE | 2020-03-19 17:34 | ER Document Report ---
ED General - General Chief Complaint: Chest Pain Stated Complaint: CHEST PAIN Time Seen by Provider: 03/19/20 16:22 Primary Care Provider: JACKELINE TRENT MD [Primary Care Provider] - Follow up as needed Mode of Arrival: Ambulatory Information source: Patient Notes: ED Medical Screen (RME) - General Chief Complaint: Chest Pain Stated Complaint: CHEST PAIN Time Seen by Provider: 03/19/20 16:22 Primary Care Provider: JACKELINE TRENT MD [Primary Care Provider] - Follow up as needed Mode of Arrival: Ambulatory Information source: Patient TRAVEL OUTSIDE OF THE [place] IN LAST 30 DAYS: No - HPI Notes: 03/19/20 16:26 - ED Nursing Note by JUAN COHEN [facility] Num: [id number] : 1930 Patient Age: 89 patient arrives to ED with c/o rapid heart rate. Patient reports she was at her primary care doctors today for a check-up and she was found to be in Atrial Fibrillation with RVR. Patient c/o back pain and swelling to lower extremities. Patient denies chest pain. No acute distress noted, breathing is even and unlabored, speaking in complete and clear sentences. Patient has taken all daily medications as prescribed. Initialized on 03/19/20 16:26 - END OF NOTE 03/19/20 16:39 89-year-old female with a history of A. fib on Eliquis, hypertension hypothyroidism presents to the emergency room by private vehicle after going to her 3-month checkup with her doctor today where they did an EKG and she is in rapid A. fib with RVR. She was advised to come to the emergency room. Patient reports she is having some shortness of breath but she is unsure if this is from her arrhythmia more because she has baseline shortness of breath. Patient does take her Micardis and nifedipine which she already took this morning. Denies any chest pain, nausea vomiting or diarrhea denies any dizziness. Patient does follow with Dr. Bagley, her emotionally impaired teacher manages her blood pressure. Patient states she has not felt any change in her rhythm or heart rate, if anything she has been complaining more of a back spasm that she has been experiencing, and this is what she originally went to her doctors to be seen about today. Denies any fevers or chills. 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 She denies any hemoptysis but does admit to nonproductive cough. She saw her personal doctor Dr. Vanessa today who did EKG and found she was in A. fib and sent her to the ER. She denies any chest pain or a rapid heart rate. She reports she has had pneumonia in the past. She currently is on factor X inhibitor Eliquis for A. fib. Patient arrives with heart rate 165 and this decreased to 130 after Cardizem 5 IV and then progressed to 105 after a Valsalva maneuver by the patient. Chest x-ray reveals a right lower lobe infiltrate. TRAVEL OUTSIDE OF THE [place] IN LAST 30 DAYS: No - HPI Onset: Other - x 3 weeks Onset/Duration: Sudden, Persistent Quality of pain: Achy Severity: Mild Pain Level: 1 Associated symptoms: Body/muscle aches Exacerbated by: Denies Relieved by: Denies Similar symptoms previously: Yes Recently seen / treated by doctor: Yes - Related Data Allergies/Adverse Reactions: Sulfa (Sulfonamide Antibiotics) Allergy (Intermediate, Verified 03/19/20 17:27) FLU-LIKE SYMPTOMS Penicillins Allergy (Mild, Verified 03/19/20 17:27) Hives pneumococcal vaccine Allergy (Verified 03/19/20 17:27) Arm Swells Home Medications: Eliquis. Nicardis. Nifedipine. Carvedilol. Zolpidem. Vit D Past Medical History - General Information source: Patient - Smoker - Social History Smoking Status: Former Smoker - Patient used to smoke 3 packs/day beginning and [address] here in [place]. Her dad was a marine and her worked at the [employer]. Patient denies any alcohol use. She does have like 10 cats at home that she has to take care of. Cigarette use (# per day): No Chew tobacco use (# tins/day): No Smoking Education Provided: No Frequency of alcohol use: None Drug Abuse: None Family History: Reviewed & Not Pertinent Patient has suicidal ideation: No Patient has homicidal ideation: No - Past Medical History Cardiac Medical History: Reports: Hx Hypercholesterolemia, Hx Hypertension Denies: Hx Atrial Fibrillation, Hx Congestive Heart Failure, Hx Coronary Artery Disease, Hx Heart Attack, Hx Peripheral Vascular Disease, Hx Pulmonary Embolism, Hx Heart Murmur Pulmonary Medical History: Reports: Hx COPD, Hx Sleep Apnea - CPAP Denies: Hx Asthma, Hx Bronchitis, Hx Pneumonia, Hx Respiratory Failure, Hx Tuberculosis Neurological Medical History: Denies: Hx Cerebrovascular Accident, Hx Seizures Endocrine Medical History: Reports: Hx Hypothyroidism. Denies: Hx Graves' Disease, Hx Hyperthyroidism Renal/ Medical History: Denies: Hx End Stage Renal Disease, Hx Kidney Stones, Hx Peritoneal Dialysis Malignancy Medical History: Denies: Hx Leukemia, Hx Lung Cancer GI Medical History: Reports: Hx Diverticulitis. Denies: Hx Crohn's Disease, Hx Gastroesophageal Reflux Disease, Hx Hiatal Hernia, Hx Irritable Bowel, Hx Liver Failure, Hx Pancreatitis, Hx Ulcer Musculoskeletal Medical History: Reports Hx Arthritis - RA, Denies Hx Fibromyalgia, Denies Hx Muscular Dystrophy, Denies Hx Systemic Lupus Erythematosus Psychiatric Medical History: Traumatic Medical History: Denies: Hx Fractures Infectious Medical History: Denies: Hx HIV Past Surgical History: Reports: Hx Abdominal Surgery - intestine/colon CA, Hx Cholecystectomy, Hx Tonsillectomy. Denies: Hx Appendectomy, Hx Bowel Surgery, Hx Section, Hx Colostomy, Hx Coronary Artery Bypass Graft, Hx Gastric Bypass Surgery, Hx Herniorrhaphy, Hx Hysterectomy, Hx Mastectomy, Hx Open Heart Surgery, Hx Pacemaker, Hx Tubal Ligation - Immunizations Hx Diphtheria, Pertussis, Tetanus Vaccination: Yes Review of Systems - Review of Systems Constitutional: See HPI EENT: No symptoms reported Cardiovascular: See HPI, Palpitations, Heart racing Respiratory: No symptoms reported Gastrointestinal: No symptoms reported Genitourinary: No symptoms reported Female Genitourinary: No symptoms reported Musculoskeletal: Back pain - right side only Skin: No symptoms reported Hematologic/Lymphatic: No symptoms reported Neurological/Psychological: No symptoms reported Physical Exam - Vital signs Vitals: Temp 98.2 F 03/19/20 16:25 Interpretation: Hypertensive, Tachycardic - General General appearance: Appears well, Alert - HEENT Head: Normocephalic, Atraumatic Eyes: Normal Pupils: PERRL Mouth/Lips: Normal Mucous membranes: Normal Pharynx: Normal Neck: Normal - Respiratory Respiratory status: No respiratory distress Chest status: Pain with cough Breath sounds: Normal Chest palpation: Normal - Cardiovascular Rhythm: Tachycardia Heart sounds: Normal auscultation Murmur: No - Abdominal Inspection: Normal Distension: No distension Bowel sounds: Normal Tenderness: Nontender Organomegaly: No organomegaly - Rectal Hemorrhoids: Other - Genitourinary Bimanuel exam: Other - deferred - Back Back: Tender, CVA tenderness - right cva tender - Extremities General upper extremity: Normal inspection General lower extremity: Normal inspection - Neurological Neuro grossly intact: Yes Cognition: Normal Orientation: AAOx4 [place] Coma Scale Eye Opening: Spontaneous Raiza Coma Scale Verbal: Oriented Raiza Coma Scale Motor: Obeys Commands Raiza Coma Scale Total: 15 Speech: Normal Motor strength normal: LUE, RUE, LLE, RLE Sensory: Normal - Psychological Associated symptoms: Normal affect - Skin Skin Temperature: Warm Skin Moisture: Dry Course - Vital Signs Vital signs: Temp Pulse Resp BP Pulse Ox 98.2 F 170 H 20 142/94 H 99 03/19/20 16:31 03/19/20 16:31 03/19/20 16:31 03/19/20 16:31 03/19/20 16:31 - Laboratory Result Diagrams: 03/19/20 16:20 03/19/20 16:20 Laboratory results interpreted by me: 03/19/20 03/19/20 03/19/20 16:20 16:20 16:20 PT 16.0 H APTT 39.4 H Chloride 109 H Carbon Dioxide 21 L BUN 25 H Creatinine 1.28 H Est GFR ( Amer) 48 L Est GFR (MDRD) Non-Af 39 L Glucose 128 H NT-Pro-B Natriuret Pep 2500 H - Diagnostic Test Radiology reviewed: Reports reviewed Radiology results interpreted by me: 03/19/20 19:15 CTA with findings of bilateral pleural effusions and right lower lobe infiltrate but no PE - EKG Interpretation by Me Rate: Tachycardia Rhythm: A.Fib Critical Care Note - Critical Care Note Comments: I discussed case with Kacy Kay [id number]. He advised following up with Dr. John Silva at 1900 hrs. I called him at 1910 and he advised medical bed only. Discharge - Discharge Clinical Impression: Tachycardia, Elevated brain natriuretic peptide (BNP) level, Infiltrate of lung present on chest x-ray Condition: Good Disposition: ADMITTED INPATIENT Admitting Provider: Ricardo (Hospitalist) Unit Admitted: Medical Floor Referrals: JACKELINE TRENT MD [Primary Care Provider] - Follow up as needed
--- NOTE | 2020-03-19 18:39 | RADIOLOGY REPORT (SQ) ---
EXAM DESCRIPTION: CTA CHEST IMAGES COMPLETED DATE/TIME: 03/19/2020 5:11 pm REASON FOR STUDY: SOB in rapid afib w/ RVR HR 170. COMPARISON: None. TECHNIQUE: CT scan of the chest performed using helical scanning technique with dynamic intravenous contrast injection. Images reviewed with lung, soft tissue and bone windows. Reconstructed coronal and sagittal MPR images reviewed. Additional 3 dimensional post-processing performed to develop Maximal Intensity Projection images (SC P). All images stored on PACS. All CT scanners at this facility use dose modulation, iterative reconstruction, and/or weight based d osing when appropriate to reduce radiation dose to as low as reasonably achievable (ALARA). [facility]: Dose Right [facility]: CareDose [facility]: Dose Right [facility]: Teradose 4D [facility]: Knowta CONTRAST TYPE AND DOSE: contrast/concentration: Isovue 350.00 mmol/ml; Total Contrast Delivered: 64. 0 ml; Total Saline Delivered: 32.9 ml Contrast bolus optimized for the pulmonary arteries. Not diagnostic for the aorta. RENAL FUNCTION: Creatinine 1.28 today. RADIATION DOSE: CT Rad equipment meets quality standard of care and radiation dose reduction techniq ues were employed. CTDIvol: 9.9 - 19.0 mGy. DLP: 771 mGy-cm. . LIMITATIONS: Respiratory motion obscures detail. FINDINGS: LUNGS AND PLEURA: Trachea has normal caliber and appearance. Respiratory motion obscures detail in the mid to lower lungs. There is tree-in-bud nodularity in the right upper and lower lobes . No focal confluent consolidation. Trace bilateral pleural effusions. No pneumothorax. . AORTA AND GREAT VESSELS: No aneurysm. Contrast bolus not optimized for the aorta. HEART: Moderate cardiomegaly. No pericardial effusion. No significant coronary artery calcifications . PULMONARY ARTERIES: No emboli visualized in the main pulmonary arteries or the segmental branches. HILAR AND MEDIASTINAL STRUCTURES: No identified masses or abnormal nodes. HARDWARE: None in the chest. UPPER ABDOMEN: Nodular contour of the liver, indeterminate. THYROID AND OTHER SOFT TISSUES: No masses. No adenopathy. BONES: No acute or significant finding. 3D MIPS: Confirm above findings. OTHER: No other significant finding. IMPRESSION: 1. No pulmonary embolism. 2. Scattered tree-in-bud nodularity in the right upper and lower lobe, consistent with infectious/inf lammatory process. 3. Small bilateral pleural effusions. 4. Moderate cardiomegaly. No pericardial effusion. COMMENT: Quality ID # [id number]: Final reports with documentation of one or more dose reduction techniques (e.g., Automated exposure control, adjustment of the mA and/or kV according to patient size, use of iterative reconstruction technique) TECHNICAL DOCUMENTATION: JOB ID: [id number] 2010 [employer]- All Rights Reserved Reading location - IP/workstation name: [email or web address]
[2020-03-19] MEDS ORDERED: ONDANSETRON HCL INJ/PF 4 MG/2 ML SDV IV ONE (19:28)
[2020-03-19] MEDS ORDERED: MORPHINE SULFATE 10 MG/ML INJ IV ONE (19:28)
--- NOTE | 2020-03-19 19:30 | PDOC H&P ---
History of Present Illness Admission Date/PCP: 03/19/2020 19:28 JACKELINE TRENT MD Patient complains of: Tachycardia History of Present Illness: COLIN JACKSON is a 89 year old female who presents the emergency room from her primary care provider's office with atrial fibrillation with a rapid ventricular response. She admits that she had been unaware of her tachycardia at the time it was discovered because she had gone to the doctor for her right costovertebral angle pain. She admits associated mild dyspnea and nonproductive cough that is slightly increased over her baseline dyspnea and chronic cough due to her emphysema. She admits accompanying constant, nonradiating, progressively more intense, crampy right CVA pain over the last 3 weeks which she has previously experienced when she had pneumonia and which has become exquisitely severe for the last week. She denies other associated or accompanying signs and symptoms. She has not identified any aggravating or ameliorating factors for her tachycardia. In the emergency room she was found to have atrial fibrillation with a rapid ventricular response which improved with Valsalva maneuver and 5 mg of Cardizem administered IV x1. Her rapid ventricular response recurred over a period of time after the administration of Cardizem and no further treatment of her heart rate was provided. Small right upper and lower lobe infiltrate/inflammation areas were detected on CT scan of the chest. Patient was subsequently admitted to the hospital per the pneumonia protocol on the medical floor for further evaluation and treatment. Past Medical History Cardiac Medical History: Reports: Atrial Fibrillation - Chronic, Hyperlipidema, Hypertension Denies: Congestive Heart Failure, Coronary Artery Disease, DVT, Myocardial Infarction, Peripheral Vascular Disease, Pulmonary Embolism, Heart Murmur Pulmonary Medical History: Reports: Bronchitis, Chronic Obstructive Pulmonary Disease (COPD) - Emphysema, Pneumonia, Sleep Apnea - CPAP Denies: Asthma, Respiratory Failure, Tuberculosis EENT Medical History: Denies: Eyes - Wears glasses, Ears - Hearing aids Neurological Medical History: Denies: Hemorrhagic CVA, Ischemic CVA, Seizures Endocrine Medical History: Reports: Hypothyroidism Denies: Diabetes Mellitus Type 1, Diabetes Mellitus Type 2, Hyperthyroidism Renal/ Medical History: Reports: Chronic Kidney Disease Denies: Nephrolithiasis Malignancy Medical History: Reports: Colorectal Cancer - Colon cancer: status post right colon resection GI Medical History: Reports: Diverticulitis, Gastroesophageal Reflux Disease, Other - Hepatomegaly, irritable bowel syndrome, bowel obstruction Denies: Cirrhosis, Crohn's Disease, Hiatal Hernia, Peptic Ulcer Disease, Ulcerative Colitis Musculoskeltal Medical History: Reports: Arthritis - RA, Other - Polymyalgia Denies: Fibromyalgia Skin Medical History: Denies: Eczema, Psoriasis Psychiatric Medical History: Reports: Tobacco Dependency, Other - Chronic insomnia Denies: Alcohol Dependency, Substance Abuse Traumatic Medical History: Reports: None Hematology: Reports: Anemia Denies: Bleeding Tendencies Infectious Medical History: Reports: None Past Surgical History Past Surgical History: Reports: Cholecystectomy, Tonsillectomy, Other - Right hemicolectomy Social History Lives with: Family Smoking Status: Former Smoker Electronic Cigarette use?: No Frequency of Alcohol Use: None Hx Recreational Drug Use: No Drugs: None Hx Prescription Drug Abuse: No - Advance Directive Resuscitation Status: Do Not Resuscitate Surrogate healthcare decision maker:: Gerhard Jackson Jr. Family History Family History: DM - Mother, Other - Congestive heart failure: Father Parental Family History Reviewed: Yes Children Family History Reviewed: No Sibling(s) Family History Reviewed.: Yes Medication/Allergy Home Medications: Levothyroxine Sodium 200 mcg PO Q6AM 01/25/16 Telmisartan [Micardis 80 mg Tablet] 80 mg PO DAILY 01/25/16 Modafinil [Provigil 100 mg Tablet] 100 mg PO DAILY 03/09/16 Apixaban [Eliquis 5 mg Tablet] 5 mg PO Q12 03/19/20 Carvedilol Phosphate [Carvedilol ER] 10 mg PO DAILY 03/19/20 Colestipol HCl [Colestid 1 gm Tablet] 1 gm PO ASDIR PRN 03/19/20 Ergocalciferol (Vitamin D2) [Drisdol 50,000 unit (1.25MG) Capsule] 50,000 unit PO PORTILLO@1000 03/19/20 Hydroxychloroquine Sulfate [Plaquenil 200 mg Tablet] 200 mg PO DAILY 03/19/20 Meclizine HCl [Antivert 25 mg Tablet] 25 mg PO Q8HP PRN 03/19/20 Nifedipine [Nifedipine ER] 30 mg PO DAILY 03/19/20 Omeprazole 20 mg PO DAILYP PRN 03/19/20 Zolpidem Tartrate [Zolpidem Tartrate ER] 6.25 mg PO QHS 03/19/20 Allergies/Adverse Reactions: Sulfa (Sulfonamide Antibiotics) Allergy (Intermediate, Verified 03/19/20 17:27) FLU-LIKE SYMPTOMS Penicillins Allergy (Mild, Verified 03/19/20 17:27) Hives pneumococcal vaccine Allergy (Verified 03/19/20 17:27) Arm Brenton Review of Systems Constitutional: ABSENT: chills, fever(s) Eyes: ABSENT: visual disturbances, other - Eye pain Ears: ABSENT: hearing changes, other - Ear pain Nose, Mouth, and Throat: ABSENT: headache(s), sore throat Cardiovascular: PRESENT: as per HPI, dyspnea on exertion. ABSENT: chest pain, edema, orthropnea, palpitations Respiratory: PRESENT: as per HPI, cough, dyspnea. ABSENT: hemoptysis, sputum Gastrointestinal: ABSENT: abdominal pain, constipation, diarrhea, nausea, vomiting Genitourinary: ABSENT: dysuria, hematuria Musculoskeletal: PRESENT: as per HPI, back pain. ABSENT: joint swelling, muscle weakness Integumentary: ABSENT: pruritus, rash Neurological: ABSENT: confusion, convulsions, focal weakness, memory loss, syncope Psychiatric: ABSENT: anxiety, depression Endocrine: ABSENT: cold intolerance, heat intolerance Hematologic/Lymphatic: ABSENT: easy bleeding, easy bruising Allergic/Immunologic: ABSENT: seasonal rhinorrhea Physical Exam Vital Signs: Temp Pulse Resp BP Pulse Ox 98.2 F 170 H 20 142/94 H 99 03/19/20 16:31 03/19/20 16:31 03/19/20 16:31 03/19/20 16:31 03/19/20 16:31 Intake & Output 03/17/20 03/18/20 03/19/20 23:59 23:59 23:59 Intake Total 150 Balance 150 Weight 88.451 kg General appearance: PRESENT: no acute distress, cooperative Head exam: PRESENT: atraumatic, normocephalic Eye exam: PRESENT: conjunctiva pink. ABSENT: conjunctival injection, scleral icterus Ear exam: PRESENT: normal external ear exam. ABSENT: bleeding, drainage Mouth exam: PRESENT: dry mucosa, neck supple Neck exam: ABSENT: thyromegaly, tracheal deviation Respiratory exam: PRESENT: decreased breath sounds - Minimally decreased breath sounds throughout all celeste, prolonged expiratory phas - Minimally prolonged expiratory phase, symmetrical, unlabored, wheezes - Minimal expiratory wheezes. ABSENT: rales, rhonchi Cardiovascular exam: PRESENT: irregular rhythm - Irregularly irregular rate and rhythm, tachycardia. ABSENT: clicks, gallop, rubs Pulses: PRESENT: normal radial pulses, normal dorsalis pedis pul Vascular exam: PRESENT: normal capillary refill GI/Abdominal exam: PRESENT: normal bowel sounds, soft Rectal exam: PRESENT: deferred Extremities exam: ABSENT: joint swelling, pedal edema Musculoskeletal exam: ABSENT: deformity, dislocation Neurological exam: PRESENT: alert, oriented to person, oriented to place, oriented to time, oriented to situation, CN II-XII grossly intact. ABSENT: motor sensory deficit Psychiatric exam: PRESENT: appropriate affect, normal mood Skin exam: PRESENT: dry, intact, warm. ABSENT: jaundice, rash, urticaria Results Laboratory Results: 03/19/20 16:20 03/19/20 16:20 03/19/20 03/19/20 16:20 16:20 WBC 8.2 RBC 4.01 Hgb 12.2 Hct 37.3 MCV 93 MCH 30.5 MCHC 32.7 RDW 13.9 Plt Count 269 Seg Neutrophils % 76.3 Sodium 139.2 Potassium 4.5 Chloride 109 H Carbon Dioxide 21 L Anion Gap 9 BUN 25 H Creatinine 1.28 H Est GFR ( Amer) 48 L Glucose 128 H Calcium 9.0 Magnesium 2.1 Total Bilirubin 0.5 AST 31 Alkaline Phosphatase 59 Total Protein 7.7 Albumin 4.2 03/19/20 03/19/20 16:20 16:20 Creatine Kinase 91 CK-MB (CK-2) 1.63 Troponin I < 0.012 NT-Pro-B Natriuret Pep 2500 H Impressions: Chest X-Ray 03/19/20 16:23 IMPRESSION: Hyperinflated lungs which can be seen with obstructive lung disease. No acute cardiopulmonary disease. Chest/Abdomen CTA 03/19/20 16:33 IMPRESSION: 1. No pulmonary embolism. 2. Scattered tree-in-bud nodularity in the right upper and lower lobe, consistent with infectious/inflammatory process. 3. Small bilateral pleural effusions. 4. Moderate cardiomegaly. No pericardial effusion. Assessment and Plan - Diagnosis (1) Acute right flank pain Is this a current diagnosis for this admission?: Yes (2) Community acquired pneumonia of right lung Qualifiers: Lung location: unspecified part of lung Qualified Code(s): J18.9 - Pneumonia, unspecified organism Is this a current diagnosis for this admission?: Yes (3) Chronic atrial fibrillation with rapid ventricular response Is this a current diagnosis for this admission?: Yes (4) Chronic anticoagulation Is this a current diagnosis for this admission?: Yes (5) Hypothyroidism Qualifiers: Hypothyroidism type: unspecified Qualified Code(s): E03.9 - Hypothyroidism, unspecified Is this a current diagnosis for this admission?: Yes (6) Emphysema of lung Qualifiers: Emphysema type: unspecified Qualified Code(s): J43.9 - Emphysema, unspecified Is this a current diagnosis for this admission?: Yes (7) GERD (gastroesophageal reflux disease) Qualifiers: Esophagitis presence: esophagitis presence not specified Qualified Code(s): K21.9 - Gastro-esophageal reflux disease without esophagitis Is this a current diagnosis for this admission?: Yes (8) Hypertension Qualifiers: Hypertension type: essential hypertension Qualified Code(s): I10 - Essential (primary) hypertension Is this a current diagnosis for this admission?: Yes - Plan Summary Summary: Patient will be admitted to the medical floor on telemetry where she will receive routine supportive and symptomatic cares. She will be treated with an aggressive pulmonary toilet utilizing nebulized Xopenex, Atrovent, Pulmicort and Mucomyst. Intravenous Levaquin was initiated in the emergency room by the emergency room physician and will be continued at 500 mg IV daily with the addition of aztreonam 1 g IV every 8 hours due to beta-lactam allergy. Intravenous Cardizem and/or metoprolol will be used to control the patient's atrial fibrillation with rapid ventricular response as needed. Patient's usual medications will be resumed as soon as her medication list can be verified and reconciled. She will be treated with a cardiac diet. A lipid profile and thyroid profile will be obtained. CBCs, metabolic profiles, magnesium levels and additional laboratory and/or radiographic evaluations will be obtained as appropriate. - Time Time Spent with patient: 15-24 minutes Medications reviewed and adjusted accordingly: Yes Anticipated Discharge Disposition: Home with Home Health Anticipated Discharge: within 72 hours Anticipated discharge: Home - Inpatient Certification Based on my medical assessment, after consideration of the patient's comorbidities, presenting symptoms, or acuity I expect that the services needed warrant INPATIENT care.: Yes I certify that my determination is in accordance with my understanding of Medicare's requirements for reasonable and necessary INPATIENT services [42 CFR 412.3e].: Yes Medical Necessity: Significant Comorbidiites Make Outpatient Treatment Too Risky, Need Close Monitoring Due to Risk of Patient Decompensation, Need For IV Fluids, Need For Continuous Telemetry Monitoring, Need for IV Antibiotics, Risk of Complication if Not Cared For in Hospital
[2020-03-19] MEDS ORDERED: GUAIFENESIN SYRP 200 MG/10 ML UDC PO PRN (21:30)
[2020-03-19] MEDS ORDERED: ACETAMINOPHEN 325 MG TABLET PO PRN (21:30)
[2020-03-19] MEDS ORDERED: LEVALBUTEROL HCL NEB 0.63 MG/3 ML AMPUL NEB PRN (21:30)
[2020-03-19] MEDS ORDERED: DILTIAZEM HCL/D5W 125 MG/125 ML RTUINJ IV PRN (21:42)
[2020-03-19] MEDS ORDERED: MECLIZINE HCL 25 MG TABLET PO PRN (21:53)
[2020-03-19] MEDS ORDERED: METOPROLOL SUCCINATE 50 MG TAB.SR.24H PO ONE (21:57)
[2020-03-19] MEDS ORDERED: MORPHINE SULFATE 10 MG/ML INJ IV PRN (21:58)
[2020-03-19] MEDS ORDERED: LORAZEPAM INJ 2 MG/1 ML VIAL IV PRN (21:58)
[2020-03-19] MEDS ORDERED: FAMOTIDINE 20 MG TABLET PO SCH ×2 (22:00)
[2020-03-19] MEDS ORDERED: CARVEDILOL 12.5 MG TABLET PO SCH (22:00)
[2020-03-19] MEDS: DILTIAZEM HCL INJ 25 MG/5 ML VIAL IV ONE ×2 (22:19→23:22)
[2020-03-19] MEDS: APIXABAN 5 MG TABLET PO SCH (22:58)
[2020-03-19] MEDS: ZOLPIDEM TARTRATE 5 MG TABLET PO SCH (23:21)
[2020-03-19] MEDS: AZTREONAM 1 GM in DEXTROSE 5%-WATER 50 ML IV SCH (23:25)
[2020-03-20] MEDS: IPRATROPIUM BROMIDE 0.02% NEB 0.5 MG/2.5 ML AMPUL NEB SCH ×3 (01:00→16:34)
[2020-03-20] MEDS: LEVALBUTEROL HCL NEB 1.25 MG/3 ML AMPUL NEB SCH ×3 (01:01→16:34)
[2020-03-20 06:18] LABS: HEMATOCRIT 33.3 % (36.0-47.0); HEMOGLOBIN 11.1 g/dL (12.0-15.5); MEAN CORPUSCULAR HEMOGLOBIN 30.9 pg (27.0-33.4); MEAN CORPUSCULAR HGB CONC 33.2 g/dL (32.0-36.0); MEAN CORPUSCULAR VOLUME 93 fl (80-97); PLATELET COUNT 211 10^3/uL (150-450); RED BLOOD COUNT 3.58 10^6/uL (3.72-5.28); RED CELL DISTRIBUTION WIDTH 13.7 % (11.5-14.0); WHITE BLOOD COUNT 7.6 10^3/uL (4.0-10.5)
[2020-03-20] MEDS: AZTREONAM 1 GM in DEXTROSE 5%-WATER 50 ML IV SCH ×3 (06:25→21:34)
[2020-03-20 06:38] LABS: ANION GAP 7 (5-19); BLOOD UREA NITROGEN 22 mg/dL (7-20); CALCIUM 8.4 mg/dL (8.4-10.2); CARBON DIOXIDE 21 mmol/L (22-30); CHLORIDE 109 mmol/L (98-107); GLUCOSE 114 mg/dL (75-110); POTASSIUM 4.9 mmol/L (3.6-5.0)
[2020-03-20] MEDS: LEVOTHYROXINE SODIUM 0.1 MG TABLET PO SCH (06:45)
[2020-03-20] MEDS: PANTOPRAZOLE SODIUM 20 MG TABLET.DR PO SCH (06:45)
[2020-03-20 07:08] LABS: APPEARANCE,URINE CLEAR; BILIRUBIN,URINE NEGATIVE (NEGATIVE); COLOR,URINE YELLOW; GLUCOSE, URINE NEGATIVE (NEGATIVE); KETONES,URINE NEGATIVE (NEGATIVE); PROTEIN,URINE 100 mg/dL (NEGATIVE); URINE SPECIFIC GRAVITY 1.032; UROBILINOGEN,URINE NEGATIVE mg/dL (<2.0)
[2020-03-20] MEDS: BUDESONIDE NEB 0.5 MG/2 ML AMPUL NEB SCH ×2 (08:19→20:56)
--- NOTE | 2020-03-20 09:22 | EKG REPORT ---
SEVERITY:- ABNORMAL ECG - ATRIAL FIBRILLATION WITH RAPID V-RATE LOW VOLTAGE IN FRONTAL LEADS BORDERLINE R WAVE PROGRESSION, ANTERIOR LEADS : Confirmed by: Jaylon Sommer 20-Mar-2020 09:21:45
[2020-03-20] MEDS ORDERED: NIFEDIPINE 30 MG TAB.ER.24 PO SCH (10:00)
[2020-03-20] MEDS ORDERED: METOPROLOL SUCCINATE 50 MG TAB.SR.24H PO SCH (10:00)
[2020-03-20] MEDS: APIXABAN 5 MG TABLET PO SCH ×2 (10:05→21:34)
[2020-03-20] MEDS: MODAFINIL 100 MG TABLET PO SCH (10:08)
[2020-03-20] MEDS: DOCUSATE SODIUM 100 MG CAPSULE PO SCH ×2 (10:09→17:04)
--- NOTE | 2020-03-20 11:00 | PDOC CONSULTATION ---
Consultation Consult Date: 03/20/20 Attending physician:: PAUL NASH Provider Consulted: ROSALIA QUIROGA Consult reason:: AF History of Present Illness Admission Date/PCP: 03/19/20 19:22 JACKELINE TRENT MD History of Present Illness: COLIN BOURNE is a 89 year old female with history of COPD, hypertension, iron deficiency anemia, renal insufficiency, liver cirrhosis, atrial fibrillation, hypertension and esophageal varices who is consulted to our service for further evaluation and management of rapid atrial fibrillation. She had been having significant amount of back pain and a dry cough reason why she sought medical attention with her primary care provider yesterday at which time she was found to be in rapid atrial fibrillation. She came to our facility w here she was found to have infection/inflammation on oh chest CT scan and was placed on antibiotics. She was also found to be in rapid atrial fibrillation and was placed on a Cardizem drip. Today she feels slightly better but continues to have significant back pain that is worse with movement. Her heart rate is slightly better controlled but she is still showing rapid A. fib at rest. Her [id number] score is 4 therefore she is anticoagulated with Eliquis. Physical exam on 03/20/2020: GENERAL: Pleasant and conversational. Oriented x3 with normal mood. Not in acute distress. Well groomed and well developed. HEENT: Normocephalic, atraumatic. Pupils equal. Sclerae anicteric. Orophar ynx moist. NECK: No JVD. No carotid bruits. LUNGS: Clear to auscultation bilaterally. Normal respiratory effort without the use of accessory muscles or intercostal retractions. CARDIOVASCULAR: Irregularly irregular rate and rhythm, normal S1 and S2 without murmurs, rubs, or gallops. PMI not displaced. ABDOMEN: No masses or tenderness to palpation. No bruit. No splenomegaly or hepatomegaly. No abdominal aorta bruit noted. EXTREMITIES: No edema, no cyanosis, no clubbing. +2 pulses femoral and pedal pulses bilaterally. SKIN: No lesions or rashes. MUSCULOSKELETAL: No chest tenderness to palpation. NEUROLOGIC: Nonfocal. No gross sensory or motor deficits bilateral upper or lower extremities. Cardiac studies: Echocardiogram on 10/17/18: -LV is normal in size. -Mild concentric LVH. -EF 60-65%. -Wall motion assessment is limited. -Mild ROSANNA. -Mild MR, mild TR, mild AI, mild PI. Past Medical History Cardiac Medical History: Reports: Atrial Fibrillation - Chronic, Hyperlipidema, Hypertension Denies: Congestive Heart Failure, Coronary Artery Disease, DVT, Myocardial Infarction, Peripheral Vascular Disease, Pulmonary Embolism, Heart Murmur Pulmonary Medical History: Reports: Bronchitis, Chronic Obstructive Pulmonary Disease (COPD) - Emphysema, Pneumonia, Sleep Apnea - CPAP Denies: Asthma, Respiratory Failure, Tuberculosis EENT Medical History: Denies: Eyes - Wears glasses, Ears - Hearing aids Neurological Medical History: Denies: Hemorrhagic CVA, Ischemic CVA, Seizures Endocrine Medical History: Reports: Hypothyroidism Denies: Diabetes Mellitus Type 1, Diabetes Mellitus Type 2, Hyperthyroidism Renal/ Medical History: Reports: Chronic Kidney Disease Denies: End Stage Renal Disease, Nephrolithiasis Malignancy Medical History: Reports: Colorectal Cancer - Colon cancer: status post right colon resection Denies: Leukemia, Lung Cancer GI Medical History: Reports: Diverticulitis, Gastroesophageal Reflux Disease, Other - Hepatomegaly, irritable bowel syndrome, bowel obstruction Denies: Cirrhosis, Crohn's Disease, Hiatal Hernia, Peptic Ulcer Disease, Ulcerative Colitis Musculoskeltal Medical History: Reports: Arthritis - RA, Other - Polymyalgia Denies: Fibromyalgia Skin Medical History: Denies: Eczema, Psoriasis Psychiatric Medical History: Reports: Tobacco Dependency, Other - Chronic insomnia Denies: Alcohol Dependency, Substance Abuse Traumatic Medical History: Reports: None Hematology: Reports: Anemia Denies: Hemophilia, Sickle Cell Disease, Bleeding Tendencies Infectious Medical History: Reports: None Denies: HIV Past Surgical History Past Surgical History: Reports: Cholecystectomy, Tonsillectomy, Other - Right hemicolectomy Denies: Amputation, Appendectomy, Section, Colostomy, Coronary Artery Bypass Graft, Gastric Bypass Surgery, Herniorrhaphy, Hysterectomy, Mastectomy, Pacemaker, Tubal Ligation Social History Lives with: Family Smoking Status: Former Smoker Electronic Cigarette use?: No Frequency of Alcohol Use: None Hx Recreational Drug Use: No Drugs: None Hx Prescription Drug Abuse: No - Advance Directive Resuscitation Status: Do Not Resuscitate Family History Family History: DM - Mother, Other - Congestive heart failure: Father Parental Family History Reviewed: Yes Children Family History Reviewed: Yes Sibling(s) Family History Reviewed.: Yes Medication/Allergy Home Medications: Levothyroxine Sodium 200 mcg PO Q6AM 01/25/16 Telmisartan [Micardis 80 mg Tablet] 80 mg PO DAILY 01/25/16 Modafinil [Provigil 100 mg Tablet] 100 mg PO DAILY 03/09/16 Apixaban [Eliquis 5 mg Tablet] 5 mg PO Q12 03/19/20 Carvedilol Phosphate [Carvedilol ER] 10 mg PO DAILY 03/19/20 Colestipol HCl [Colestid 1 gm Tablet] 1 gm PO ASDIR PRN 03/19/20 Ergocalciferol (Vitamin D2) [Drisdol 50,000 unit (1.25MG) Capsule] 50,000 unit PO PORTILLO@1000 03/19/20 Hydroxychloroquine Sulfate [Plaquenil 200 mg Tablet] 200 mg PO DAILY 03/19/20 Meclizine HCl [Antivert 25 mg Tablet] 25 mg PO Q8HP PRN 03/19/20 Nifedipine [Nifedipine ER] 30 mg PO DAILY 03/19/20 Omeprazole 20 mg PO DAILYP PRN 03/19/20 Zolpidem Tartrate [Zolpidem Tartrate ER] 6.25 mg PO QHS 03/19/20 Allergies/Adverse Reactions: Sulfa (Sulfonamide Antibiotics) Allergy (Intermediate, Verified 03/19/20 17:27) FLU-LIKE SYMPTOMS Penicillins Allergy (Mild, Verified 03/19/20 17:27) Hives pneumococcal vaccine Allergy (Verified 03/19/20 17:27) Arm Swells Physical Exam Vital Signs: Temp Pulse Resp BP Pulse Ox 98 F 96 21 H 115/65 96 03/20/20 03:00 03/20/20 04:00 03/20/20 03:02 03/20/20 04:00 03/20/20 03:02 Intake & Output 03/18/20 03/19/20 03/20/20 06:59 06:59 06:59 Intake Total 150 Balance 150 Weight 86.9 kg Results Laboratory Results: 03/20/20 05:05 03/20/20 05:05 03/19/20 03/19/20 03/20/20 16:20 16:20 05:05 WBC 8.2 7.6 RBC 4.01 3.58 L Hgb 12.2 11.1 L Hct 37.3 33.3 L MCV 93 93 MCH 30.5 30.9 MCHC 32.7 33.2 RDW 13.9 13.7 Plt Count 269 211 Seg Neutrophils % 76.3 Sodium 139.2 Potassium 4.5 Chloride 109 H Carbon Dioxide 21 L Anion Gap 9 BUN 25 H Creatinine 1.28 H Est GFR ( Amer) 48 L Glucose 128 H Calcium 9.0 Magnesium 2.1 Total Bilirubin 0.5 AST 31 Alkaline Phosphatase 59 Total Protein 7.7 Albumin 4.2 03/20/20 05:05 WBC RBC Hgb Hct MCV MCH MCHC RDW Plt Count Seg Neutrophils % Sodium 136.5 L Potassium 4.9 Chloride 109 H Carbon Dioxide 21 L Anion Gap 7 BUN 22 H Creatinine 1.17 Est GFR ( Amer) 53 L Glucose 114 H Calcium 8.4 Magnesium Total Bilirubin AST Alkaline Phosphatase Total Protein Albumin 03/19/20 03/19/20 03/19/20 16:20 16:20 23:02 Creatine Kinase 91 CK-MB (CK-2) 1.63 Troponin I < 0.012 < 0.012 NT-Pro-B Natriuret Pep 2500 H Impressions: Chest X-Ray 03/19/20 16:23 IMPRESSION: Hyperinflated lungs which can be seen with obstructive lung disease. No acute cardiopulmonary disease. Chest/Abdomen CTA 03/19/20 16:33 IMPRESSION: 1. No pulmonary embolism. 2. Scattered tree-in-bud nodularity in the right upper and lower lobe, consistent with infectious/inflammatory process. 3. Small bilateral pleural effusions. 4. Moderate cardiomegaly. No pericardial effusion. 03/20/20 05:05 03/20/20 05:05 MCV 93 fl (80-97) 03/20/20 05:05 MCH 30.9 pg (27.0-33.4) 03/20/20 05:05 MCHC 33.2 g/dL (32.0-36.0) 03/20/20 05:05 RDW 13.7 % (11.5-14.0) 03/20/20 05:05 Seg Neutrophils % 76.3 % (42-78) 03/19/20 16:20 Chloride 109 mmol/L (98-107) H 03/20/20 05:05 Carbon Dioxide 21 mmol/L (22-30) L 03/20/20 05:05 Anion Gap 7 (5-19) 03/20/20 05:05 Est GFR ( Amer) 53 (>60) L 03/20/20 05:05 Glucose 114 mg/dL (75-110) H 03/20/20 05:05 Calcium 8.4 mg/dL (8.4-10.2) 03/20/20 05:05 Magnesium 2.1 mg/dL (1.6-2.3) 03/19/20 16:20 Total Bilirubin 0.5 mg/dL (0.2-1.3) 03/19/20 16:20 AST 31 U/L (14-36) 03/19/20 16:20 Alkaline Phosphatase 59 U/L (38-126) 03/19/20 16:20 Total Protein 7.7 g/dL (6.3-8.2) 03/19/20 16:20 Albumin 4.2 g/dL (3.5-5.0) 03/19/20 16:20 03/19/20 03/19/20 03/19/20 16:20 16:20 23:02 Creatine Kinase 91 CK-MB (CK-2) 1.63 Troponin I < 0.012 < 0.012 NT-Pro-B Natriuret Pep 2500 H Current Medication List Generic Name Dose Route Start Last Admin Trade Name Freq PRN Reason Stop Dose Admin Acetaminophen 650 mg 03/19/20 21:30 Tylenol 325 Mg Tablet PO 04/18/20 21:29 Q4HP PRN pain or temp greater than 101F Apixaban 5 mg 03/19/20 22:00 03/19/20 22:58 Eliquis 5 Mg Tablet PO 04/18/20 21:59 5 mg Q12 ALVIN Administration Budesonide 0.5 mg 03/20/20 08:00 Pulmicort Neb 0.5 Mg/2 Ml Ampul NEB 04/19/20 07:59 RTBID ALVIN Docusate Sodium 100 mg 03/20/20 10:00 Colace 100 Mg Capsule PO 04/19/20 09:59 BID ALVIN Guaifenesin 200 mg 03/19/20 21:30 Robitussin Syrup 200 Mg/10 Ml Ud Cup PO 04/18/20 21:29 Q4HP PRN COUGH Levofloxacin/Dextrose 500 mg in 100 mls @ 100 mls/hr 03/20/20 18:00 Levaquin Rtu 500mg/D5w 100 Ml Premix IV 03/27/20 17:59 QPM ALVIN Aztreonam 1 gm/ Dextrose 50 mls @ 100 mls/hr 03/19/20 22:00 03/19/20 23:25 IV 03/26/20 21:59 100 mls/hr Q8 ALVIN Administration Diltiazem HCl 125 mg in 125 mls @ 0 mls/hr 03/19/20 21:42 03/19/20 23:34 Cardizem Rtu Inj 125 Mg-D5w 125 Ml Premix IV 04/18/20 21:41 5 mls/hr CONTINUOUS PRN 5 mls/hr THIS MED IS NOT "PRN" Administration Protocol Titrate Ipratropium [place] 0.5 mg 03/20/20 00:00 03/20/20 01:00 Atrovent 0.02% Neb 0.5 Mg/2.5 Ml Ampul NEB 04/19/20 00:00 Not Given RTQ8 ALVIN Levalbuterol HCl 0.63 mg 03/19/20 21:30 Xopenex Neb 0.63 Mg/3 Ml Ampul NEB 04/18/20 21:29 RTQ2HP PRN SHORTNESS OF BREATH Levalbuterol HCl 1.25 mg 03/20/20 00:00 03/20/20 01:01 Xopenex Neb 1.25 Mg/3 Ml Ampul NEB 04/19/20 00:00 Not Given RTQ8 ALVIN Levothyroxine Sodium 0.2 mg 03/20/20 06:00 03/20/20 06:45 Synthroid 0.1 Mg Tablet PO 04/19/20 05:59 0.2 mg Q6AM ALVIN Administration Lorazepam 1 mg 03/19/20 21:58 Ativan Inj 2 Mg/1 Ml Vial IV 03/26/20 21:57 Q4HP PRN ANXIETY/AGITATION Meclizine HCl 25 mg 03/19/20 21:53 Antivert 25 Mg Tablet PO 04/18/20 21:52 Q8HP PRN FOR VERTIGO Metoprolol Succinate 100 mg 03/20/20 10:00 Toprol Xl 50 Mg Tab.Sr PO 04/19/20 09:59 DAILY ALVIN Modafinil 100 mg 03/20/20 10:00 Provigil 100 Mg Tablet PO 03/27/20 09:59 DAILY ALVIN Morphine Sulfate 2 - 4 mg 03/19/20 21:58 Morphine 10 Mg/Ml Inj IV 03/26/20 21:57 Q2HP PRN See protocol Protocol Pantoprazole Sodium 20 mg 03/20/20 06:00 03/20/20 06:[address] Tablet PO 04/19/20 05:59 20 mg Q6AM ALVIN Administration Sodium Chloride 2.5 ml 03/19/20 22:00 03/19/20 23:56 Saline Flush 2.5 Ml Monoject Prefil Syrin IV 04/18/20 21:59 Not Given Q8 ALVIN Zolpidem Tartrate 10 mg 03/19/20 22:00 03/19/20 23:21 Ambien 5 Mg Tablet PO 03/26/20 21:59 10 mg QHS ALVIN Administration Discontinued Medications Generic Name Dose Route Start Last Admin Trade Name Freq PRN Reason Stop Dose Admin Carvedilol 12.5 mg 03/19/20 22:00 Coreg 12.5 Mg Tablet PO 04/18/20 21:59 Q12 [facility] Diltiazem HCl 5 mg 03/19/20 16:39 03/19/20 17:10 Cardizem Inj 25 Mg/5 Ml Vial IV 03/19/20 16:40 5 mg NOW ONE Administration Diltiazem HCl 15 mg 03/19/20 22:00 03/19/20 23:22 Cardizem Inj 25 Mg/5 Ml Vial IV 03/19/20 22:01 15 mg NOW ONE Administration Famotidine 20 mg 03/19/20 22:00 Pepcid 20 Mg Tablet PO 04/18/20 21:59 QHS [facility] Levofloxacin/Dextrose 750 mg in 150 mls @ 100 mls/hr 03/19/20 17:16 03/19/20 18:35 Levaquin Rtu 750 Mg/D5w 150 Ml Premix IV 03/19/20 18:45 Infused NOW ONE Infusion Metoprolol Succinate 50 mg 03/19/20 21:57 03/19/20 22:45 Toprol Xl 50 Mg Tab.Sr PO 03/19/20 21:58 50 mg NOW ONE Administration Morphine Sulfate 4 mg 03/19/20 19:28 03/19/20 20:23 Morphine 10 Mg/Ml Inj IV 03/19/20 19:29 4 mg NOW ONE Administration Nifedipine 30 mg 03/20/20 10:00 Procardia Xl 30 Mg Tablet PO 04/19/20 09:59 DAILY ALVIN Ondansetron HCl 4 mg 03/19/20 19:28 03/19/20 20:24 Zofran Inj/Pf 4 Mg/2 Ml Sdv IV 03/19/20 19:29 4 mg NOW ONE Administration Assessment & Plan - Diagnosis (1) Paroxysmal atrial fibrillation with rapid ventricular response Plan: 89-year-old female with a [id number] score of 4 for which she is anticoagulated with Eliquis without bleeding complications. Although her heart rate is slightly better she continues to be tachycardic at times which is likely worsened by her significant back pain. Recommendations: -Discontinue Cardizem drip. -Discontinue metoprolol succinate. -Start metoprolol tartrate 50 mg p.o. every 6 hours as tolerated by blood pressure. -Continue with anticoagulation. -Continue with cardiac telemetry. (2) Hypertension Qualifiers: Hypertension type: essential hypertension Qualified Code(s): I10 - Essential (primary) hypertension Is this a current diagnosis for this admission?: Yes Plan: Her blood pressure is actually on the low side likely secondary to the Cardizem drip. Recommendations: -Discontinue Cardizem drip. -We will continue to follow-up with you.
--- NOTE | 2020-03-20 11:25 | PDOC PROGRESS REPORT ---
Subjective Progress Note for:: 03/20/20 Subjective:: No adverse events overnight. She just complaining of her chronic back pain. She said she normally takes Tylenol at home. She is been taken off the Cardizem drip and switched over to metoprolol and her heart rate is pretty well controlled at this point. She continues on Eliquis. Reason For Visit: COMMUNITY-ACQUIRED PNEUMONIA,ATRIAL FIBRILLATION Physical Exam Vital Signs: Temp Pulse Resp BP Pulse Ox 98 F 92 16 106/64 96 03/20/20 03:00 03/20/20 10:00 03/20/20 08:20 03/20/20 10:00 03/20/20 08:20 Intake & Output 03/19/20 03/20/20 03/21/20 06:59 06:59 06:59 Intake Total 150 53 Output Total 400 Balance -250 53 Weight 86.9 kg General appearance: PRESENT: no acute distress, cooperative, disheveled, obese Respiratory exam: PRESENT: clear to auscultation loida, symmetrical, unlabored. ABSENT: accessory muscle use, chest wall tenderness, crackles, prolonged expiratory phas, rhonchi, tachypnea, wheezes Cardiovascular exam: PRESENT: irregular rhythm, +S1, +S2 Pulses: PRESENT: normal carotid pulses Vascular exam: PRESENT: normal capillary refill GI/Abdominal exam: PRESENT: normal bowel sounds, soft, other - Pendulous abdominal pannus. ABSENT: distended, guarding, rebound, tenderness Extremities exam: ABSENT: clubbing, pedal edema Musculoskeletal exam: PRESENT: normal inspection. ABSENT: deformity Neurological exam: PRESENT: alert, awake, oriented to person, oriented to place, oriented to situation, CN II-XII grossly intact. ABSENT: motor sensory deficit Psychiatric exam: PRESENT: anxious Skin exam: PRESENT: dry, warm Results Laboratory Results: 03/20/20 05:05 03/20/20 05:05 03/19/20 03/19/20 03/20/20 16:20 16:20 05:05 WBC 8.2 7.6 RBC 4.01 3.58 L Hgb 12.2 11.1 L Hct 37.3 33.3 L MCV 93 93 MCH 30.5 30.9 MCHC 32.7 33.2 RDW 13.9 13.7 Plt Count 269 211 Seg Neutrophils % 76.3 Sodium 139.2 Potassium 4.5 Chloride 109 H Carbon Dioxide 21 L Anion Gap 9 BUN 25 H Creatinine 1.28 H Est GFR ( Amer) 48 L Glucose 128 H Calcium 9.0 Magnesium 2.1 Total Bilirubin 0.5 AST 31 Alkaline Phosphatase 59 Total Protein 7.7 Albumin 4.2 Urine Color Urine Appearance Urine pH Ur Specific [place] Urine Protein Urine Glucose (UA) Urine Ketones Urine Blood Urine RBC (Auto) 03/20/20 03/20/20 05:05 06:35 WBC RBC Hgb Hct MCV MCH MCHC RDW Plt Count Seg Neutrophils % Sodium 136.5 L Potassium 4.9 Chloride 109 H Carbon Dioxide 21 L Anion Gap 7 BUN 22 H Creatinine 1.17 Est GFR ( Amer) 53 L Glucose 114 H Calcium 8.4 Magnesium Total Bilirubin AST Alkaline Phosphatase Total Protein Albumin Urine Color YELLOW Urine Appearance CLEAR Urine pH 5.0 Ur Specific [place] 1.032 Urine Protein 100 H Urine Glucose (UA) NEGATIVE Urine Ketones NEGATIVE Urine Blood NEGATIVE Urine RBC (Auto) 0 03/19/20 03/19/20 03/19/20 16:20 16:20 23:02 Creatine Kinase 91 CK-MB (CK-2) 1.63 Troponin I < 0.012 < 0.012 NT-Pro-B Natriuret Pep 2500 H Impressions: Chest X-Ray 03/19/20 16:23 IMPRESSION: Hyperinflated lungs which can be seen with obstructive lung disease. No acute cardiopulmonary disease. Chest/Abdomen CTA 03/19/20 16:33 IMPRESSION: 1. No pulmonary embolism. 2. Scattered tree-in-bud nodularity in the right upper and lower lobe, consistent with infectious/inflammatory process. 3. Small bilateral pleural effusions. 4. Moderate cardiomegaly. No pericardial effusion. Assessment and Plan - Diagnosis (1) Chronic atrial fibrillation with rapid ventricular response Is this a current diagnosis for this admission?: Yes Plan: She is off the Cardizem drip. She is being seen by cardiology. She is on metoprolol tartrate 4 times a day now. Continue Eliquis. (2) Chronic anticoagulation Is this a current diagnosis for this admission?: Yes (3) Community acquired pneumonia of right lung Qualifiers: Lung location: unspecified part of lung Qualified Code(s): J18.9 - Pneumonia, unspecified organism Is this a current diagnosis for this admission?: Yes Plan: I am not terribly convinced that she has an actual clinical pneumonia. For now, but these may not be continued for very long. (4) Emphysema of lung Qualifiers: Emphysema type: unspecified Qualified Code(s): J43.9 - Emphysema, unspecified Is this a current diagnosis for this admission?: Yes - Plan Summary Summary: Patient will be admitted to the medical floor on telemetry where she will receive routine supportive and symptomatic cares. She will be treated with an aggressive pulmonary toilet utilizing nebulized Xopenex, Atrovent, Pulmicort and Mucomyst. Intravenous Levaquin was initiated in the emergency room by the emergency room physician and will be continued at 500 mg IV daily with the addition of aztreonam 1 g IV every 8 hours due to beta-lactam allergy. Intravenous Cardizem and/or metoprolol will be used to control the patient's atrial fibrillation with rapid ventricular response as needed. Patient's usual medications will be resumed as soon as her medication list can be verified and reconciled. She will be treated with a cardiac diet. A lipid profile and thyroid profile will be obtained. CBCs, metabolic profiles, magnesium levels and additional laboratory and/or radiographic evaluations will be obtained as appropriate. - Time Time Spent with patient: 15-24 minutes Anticipated discharge: Home with Homehealth Within: within 72 hours
[2020-03-20] MEDS: LIDOCAINE 5% (700 MG) TRANSDERMAL ADH..PATCH TP SCH (11:58)
[2020-03-20] MEDS: METOPROLOL TARTRATE 50 MG TABLET PO SCH ×2 (17:04→23:50)
[2020-03-20] MEDS: LEVOFLOXACIN 500 MG/D5W RTU 500 MG/100 ML RTUPB IV SCH (17:04)
[2020-03-20] MEDS: ZOLPIDEM TARTRATE 5 MG TABLET PO SCH (21:34)
[2020-03-21] MEDS: LEVALBUTEROL HCL NEB 1.25 MG/3 ML AMPUL NEB SCH ×3 (00:13→15:43)
[2020-03-21] MEDS: IPRATROPIUM BROMIDE 0.02% NEB 0.5 MG/2.5 ML AMPUL NEB SCH ×3 (00:13→15:43)
[2020-03-21] MEDS: AZTREONAM 1 GM in DEXTROSE 5%-WATER 50 ML IV SCH ×3 (05:14→21:36)
[2020-03-21] MEDS: LEVOTHYROXINE SODIUM 0.1 MG TABLET PO SCH (05:14)
[2020-03-21] MEDS: METOPROLOL TARTRATE 50 MG TABLET PO SCH ×4 (05:14→23:25)
[2020-03-21] MEDS: PANTOPRAZOLE SODIUM 20 MG TABLET.DR PO SCH (05:14)
[2020-03-21] MEDS ORDERED: ONDANSETRON 4 MG TAB.RAPDIS PO PRN (06:49)
[2020-03-21] MEDS: BUDESONIDE NEB 0.5 MG/2 ML AMPUL NEB SCH ×2 (08:46→21:12)
--- NOTE | 2020-03-21 09:20 | PDOC PROGRESS REPORT ---
Subjective Progress Note for:: 03/21/20 Subjective:: RAYO BOURNE is a 89 year old female with history of COPD, hypertension, iron deficiency anemia, renal insufficiency, liver cirrhosis, atrial fibrillation, hypertension and esophageal varices who is consulted to our service for further evaluation and management of rapid atrial fibrillation. She had been having significant amount of back pain and a dry cough reason why she sought medical attention with her primary care provider yesterday at which time she was found to be in rapid atrial fibrillation. She came to our facility where she was found to have infection/inflammation on oh chest CT scan and was placed on antibiotics. She was also found to be in rapid atrial fibrillation and was placed on a Cardizem drip. Today she feels slightly better but continues to have significant back pain that is worse with movement. Her heart rate is slightly better controlled but she is still showing rapid A. fib at rest. Her [id number] score is 4 therefore she is anticoagulated with Eliquis. 03/21/20: The patient had an uneventful night and denies cardiac complaints this morning. Her blood pressure continues to be at goal. Her telemetry shows atrial fibr illation with rapid ventricular response although improved from before. Physical exam on 03/21/2020: GENERAL: Pleasant and conversational. Oriented x3 with normal mood. Not in acute distress. Well groomed and well developed. HEENT: Normocephalic, atraumatic. Pupils equal. Sclerae anicteric. Oropharynx moist. NECK: No JVD. No carotid bruits. LUNGS: Clear to auscultation bilaterally. Normal respiratory effort without the use of accessory muscles or intercostal retractions. CARDIOVASCULAR: Irregularly irregular rate and rhythm, normal S1 and S2 without murmurs, rubs, or gallops. PMI not displaced. ABDOMEN: No masses or tenderness to palpation. No bruit. No splenomegaly or h epatomegaly. No abdominal aorta bruit noted. EXTREMITIES: No edema, no cyanosis, no clubbing. +2 pulses femoral and pedal pulses bilaterally. SKIN: No lesions or rashes. MUSCULOSKELETAL: No chest tenderness to palpation. NEUROLOGIC: Nonfocal. No gross sensory or motor deficits bilateral upper or lower extremities. Cardiac studies: Echocardiogram on 10/17/18: -LV is normal in size. -Mild concentric LVH. -EF 60-65%. -Wall motion assessment is limited. -Mild ROSANNA. -Mild MR, mild TR, mild AI, mild PI. Reason For Visit: COMMUNITY-ACQUIRED PNEUMONIA,ATRIAL FIBRILLATION Physical Exam Vital Signs: Temp Pulse Resp BP Pulse Ox 97.5 F 105 H 20 110/85 96 03/21/20 03:18 03/21/20 03:53 03/21/20 03:18 03/21/20 03:18 03/21/20 03:18 Intake & Output 03/19/20 03/20/20 03/21/20 06:59 06:59 06:59 Intake Total 150 1035 Output Total 400 600 Balance -250 435 Weight 86.9 kg Results Laboratory Results: 03/20/20 05:05 03/20/20 05:05 03/20/20 03/20/20 03/20/20 05:05 05:05 06:35 WBC 7.6 RBC 3.58 L Hgb 11.1 L Hct 33.3 L MCV 93 MCH 30.9 MCHC 33.2 RDW 13.7 Plt Count 211 Sodium 136.5 L Potassium 4.9 Chloride 109 H Carbon Dioxide 21 L Anion Gap 7 BUN 22 H Creatinine 1.17 Est GFR ( Amer) 53 L Glucose 114 H Calcium 8.4 Urine Color YELLOW Urine Appearance CLEAR Urine pH 5.0 Ur Specific [place] 1.032 Urine Protein 100 H Urine Glucose (UA) NEGATIVE Urine Ketones NEGATIVE Urine Blood NEGATIVE Urine RBC (Auto) 0 03/19/20 03/19/20 03/19/20 16:20 16:20 23:02 Creatine Kinase 91 CK-MB (CK-2) 1.63 Troponin I < 0.012 < 0.012 NT-Pro-B Natriuret Pep 2500 H Impressions: Chest X-Ray 03/19/20 16:23 IMPRESSION: Hyperinflated lungs which can be seen with obstructive lung disease. No acute cardiopulmonary disease. Chest/Abdomen CTA 03/19/20 16:33 IMPRESSION: 1. No pulmonary embolism. 2. Scattered tree-in-bud nodularity in the right upper and lower lobe, consisten t with infectious/inflammatory process. 3. Small bilateral pleural effusions. 4. Moderate cardiomegaly. No pericardial effusion. 03/20/20 05:05 03/20/20 05:05 MCV 93 fl (80-97) 03/20/20 05:05 MCH 30.9 pg (27.0-33.4) 03/20/20 05:05 MCHC 33.2 g/dL (32.0-36.0) 03/20/20 05:05 RDW 13.7 % (11.5-14.0) 03/20/20 05:05 Seg Neutrophils % 76.3 % (42-78) 03/19/20 16:20 Chloride 109 mmol/L (98-107) H 03/20/20 05:05 Carbon Dioxide 21 mmol/L (22-30) L 03/20/20 05:05 Anion Gap 7 (5-19) 03/20/20 05:05 Est GFR ( Amer) 53 (>60) L 03/20/20 05:05 Glucose 114 mg/dL (75-110) H 03/20/20 05:05 Calcium 8.4 mg/dL (8.4-10.2) 03/20/20 05:05 Magnesium 2.1 mg/dL (1.6-2.3) 03/19/20 16:20 Total Bilirubin 0.5 mg/dL (0.2-1.3) 03/19/20 16:20 AST 31 U/L (14-36) 03/19/20 16:20 Alkaline Phosphatase 59 U/L (38-126) 03/19/20 16:20 Total Protein 7.7 g/dL (6.3-8.2) 03/19/20 16:20 Albumin 4.2 g/dL (3.5-5.0) 03/19/20 16:20 Urine Color YELLOW 03/20/20 06:35 Urine Appearance CLEAR 03/20/20 06:35 Urine pH 5.0 (5.0-9.0) 03/20/20 06:35 Ur Specific [place] 1.032 03/20/20 06:35 Urine Protein 100 mg/dL (NEGATIVE) H 03/20/20 06:35 Urine Glucose (UA) NEGATIVE mg/dL (NEGATIVE) 03/20/20 06:35 Urine Ketones NEGATIVE mg/dL (NEGATIVE) 03/20/20 06:35 Urine Blood NEGATIVE (NEGATIVE) 03/20/20 06:35 Urine RBC (Auto) 0 /HPF 03/20/20 06:35 03/19/20 03/19/20 03/19/20 16:20 16:20 23:02 Creatine Kinase 91 CK-MB (CK-2) 1.63 Troponin I < 0.012 < 0.012 NT-Pro-B Natriuret Pep 2500 H Current Medication List Generic Name Dose Route Start Last Admin Trade Name Freq PRN Reason Stop Dose Admin Acetaminophen 650 mg 03/19/20 21:30 Tylenol 325 Mg Tablet PO 04/18/20 21:29 Q4HP PRN pain or temp greater than 101F Apixaban 5 mg 03/19/20 22:00 03/20/20 21:34 Eliquis 5 Mg Tablet PO 04/18/20 21:59 5 mg Q12 ALVIN Administration Budesonide 0.5 mg 03/20/20 08:00 03/20/20 20:56 Pulmicort Neb 0.5 Mg/2 Ml Ampul NEB 04/19/20 07:59 0.5 mg RTBID ALVIN Administration Docusate Sodium 100 mg 03/20/20 10:00 03/20/20 17:04 Colace 100 Mg Capsule PO 04/19/20 09:59 Not Given BID ALVIN Guaifenesin 200 mg 03/19/20 21:30 Robitussin Syrup 200 Mg/10 Ml Ud Cup PO 04/18/20 21:29 Q4HP PRN COUGH Levofloxacin/Dextrose 500 mg in 100 mls @ 100 mls/hr 03/20/20 18:00 03/20/20 18:27 Levaquin Rtu 500mg/D5w 100 Ml Premix IV 03/27/20 17:59 Infused QPM ALVIN Infusion Aztreonam 1 gm/ Dextrose 50 mls @ 100 mls/hr 03/19/20 22:00 03/21/20 05:14 IV 03/26/20 21:59 100 mls/hr Q8 ALVIN Administration Ipratropium [place] 0.5 mg 03/20/20 00:00 03/21/20 00:13 Atrovent 0.02% Neb 0.5 Mg/2.5 Ml Ampul NEB 04/19/20 00:00 0.5 mg RTQ8 ALVIN Administration Levalbuterol HCl 0.63 mg 03/19/20 21:30 Xopenex Neb 0.63 Mg/3 Ml Ampul NEB 04/18/20 21:29 RTQ2HP PRN SHORTNESS OF BREATH Levalbuterol HCl 1.25 mg 03/20/20 00:00 03/21/20 00:13 Xopenex Neb 1.25 Mg/3 Ml Ampul NEB 04/19/20 00:00 1.25 mg RTQ8 ALVIN Administration Levothyroxine Sodium 0.2 mg 03/20/20 06:00 03/21/20 05:14 Synthroid 0.1 Mg Tablet PO 04/19/20 05:59 0.2 mg Q6AM ALVIN Administration Lidocaine 1 patch 03/20/20 12:00 03/20/20 11:58 Lidoderm 5% (700 Mg) Transdermal Patch TP 04/19/20 11:59 1 patch DAILY ALVIN Administration Lorazepam 1 mg 03/19/20 21:58 Ativan Inj 2 Mg/1 Ml Vial IV 03/26/20 21:57 Q4HP PRN ANXIETY/AGITATION Meclizine HCl 25 mg 03/19/20 21:53 Antivert 25 Mg Tablet PO 04/18/20 21:52 Q8HP PRN FOR VERTIGO Metoprolol Tartrate 50 mg 03/20/20 18:00 03/21/20 05:14 Lopressor 50 Mg Tablet PO 04/19/20 17:59 50 mg Q6 ALVIN Administration Modafinil 100 mg 03/20/20 10:00 03/20/20 10:08 Provigil 100 Mg Tablet PO 03/27/20 09:59 100 mg DAILY ALVIN Administration Morphine Sulfate 2 - 4 mg 03/19/20 21:58 03/20/20 21:49 Morphine 10 Mg/Ml Inj IV 03/26/20 21:57 4 mg Q2HP PRN Administration See protocol Protocol Pantoprazole Sodium 20 mg 03/20/20 06:00 03/21/20 05:[address] Tablet PO 04/19/20 05:59 20 mg Q6AM ALVIN Administration Sodium Chloride 2.5 ml 03/19/20 22:00 03/21/20 05:14 Saline Flush 2.5 Ml Monoject Prefil Syrin IV 04/18/20 21:59 2.5 ml Q8 ALVIN Administration Zolpidem Tartrate 10 mg 03/19/20 22:00 03/20/20 21:34 Ambien 5 Mg Tablet PO 03/26/20 21:59 10 mg QHS ALVIN Administration Discontinued Medications Generic Name Dose Route Start Last Admin Trade Name Freq PRN Reason Stop Dose Admin Carvedilol 12.5 mg 03/19/20 22:00 Coreg 12.5 Mg Tablet PO 04/18/20 21:59 Q12 [facility] Diltiazem HCl 5 mg 03/19/20 16:39 03/19/20 17:10 Cardizem Inj 25 Mg/5 Ml Vial IV 03/19/20 16:40 5 mg NOW ONE Administration Diltiazem HCl 15 mg 03/19/20 22:00 03/19/20 23:22 Cardizem Inj 25 Mg/5 Ml Vial IV 03/19/20 22:01 15 mg NOW ONE Administration Famotidine 20 mg 03/19/20 22:00 Pepcid 20 Mg Tablet PO 04/18/20 21:59 QHS [facility] Levofloxacin/Dextrose 750 mg in 150 mls @ 100 mls/hr 03/19/20 17:16 03/19/20 18:35 Levaquin Rtu 750 Mg/D5w 150 Ml Premix IV 03/19/20 18:45 Infused NOW ONE Infusion Diltiazem HCl 125 mg in 125 mls @ 0 mls/hr 03/19/20 21:42 03/20/20 10:10 Cardizem Rtu Inj 125 Mg-D5w 125 Ml Premix IV 04/18/20 21:41 Infused CONTINUOUS PRN Titration THIS MED IS NOT "PRN" Protocol Titrate Metoprolol Succinate 50 mg 03/19/20 21:57 03/19/20 22:45 Toprol Xl 50 Mg Tab.Sr PO 03/19/20 21:58 50 mg NOW ONE Administration Metoprolol Succinate 100 mg 03/20/20 10:00 03/20/20 10:05 Toprol Xl 50 Mg Tab.Sr PO 04/19/20 09:59 100 mg DAILY [facility] Administration Morphine Sulfate 4 mg 03/19/20 19:28 03/19/20 20:23 Morphine 10 Mg/Ml Inj IV 03/19/20 19:29 4 mg NOW ONE Administration Nifedipine 30 mg 03/20/20 10:00 Procardia Xl 30 Mg Tablet PO 04/19/20 09:59 DAILY [facility] Ondansetron HCl 4 mg 03/19/20 19:28 03/19/20 20:24 Zofran Inj/Pf 4 Mg/2 Ml Sdv IV 03/19/20 19:29 4 mg NOW ONE Administration Assessment & Plan - Diagnosis (1) Paroxysmal atrial fibrillation with rapid ventricular response Plan: 89-year-old female with a [id number] score of 4 for which she is anticoagulated with Eliquis without bleeding complications. Her heart rate continues to slowly improve although still not at goal but she has only received 3 doses of Lopressor 50 mg. Recommendations: -Continue with metoprolol tartrate 50 mg p.o. every 6 hours as tolerated by blood pressure. -Continue with anticoagulation. -Continue with cardiac telemetry. (2) Hypertension Qualifiers: Hypertension type: essential hypertension Qualified Code(s): I10 - Essential (primary) hypertension Is this a current diagnosis for this admission?: Yes Plan: Her blood pressure is now at goal. Recommendations: -Continue with current management.
[2020-03-21] MEDS: LIDOCAINE 5% (700 MG) TRANSDERMAL ADH..PATCH TP SCH (10:41)
[2020-03-21] MEDS: APIXABAN 5 MG TABLET PO SCH ×2 (10:47→21:36)
[2020-03-21] MEDS: MODAFINIL 100 MG TABLET PO SCH (10:47)
[2020-03-21] MEDS: DOCUSATE SODIUM 100 MG CAPSULE PO SCH ×2 (10:47→17:42)
--- NOTE | 2020-03-21 16:48 | PDOC PROGRESS REPORT ---
Subjective Progress Note for:: 03/21/20 Subjective:: No adverse events overnight. No new complaints. She states she is feeling better today. Her back pain has improved. Heart rate control has improved but is not yet at goal. Reason For Visit: COMMUNITY-ACQUIRED PNEUMONIA,ATRIAL FIBRILLATION Physical Exam Vital Signs: Temp Pulse Resp BP Pulse Ox 97.8 F 123 H 16 109/71 93 03/21/20 15:33 03/21/20 15:45 03/21/20 15:45 03/21/20 15:33 03/21/20 15:45 Intake & Output 03/20/20 03/21/20 03/22/20 06:59 06:59 06:59 Intake Total 150 1035 300 Output Total 400 600 Balance -250 435 300 Weight 86.9 kg 89.5 kg General appearance: PRESENT: no acute distress, cooperative, disheveled, obese Respiratory exam: PRESENT: clear to auscultation loida, symmetrical, unlabored. ABSENT: accessory muscle use, chest wall tenderness, crackles, prolonged expiratory phas, rhonchi, tachypnea, wheezes Cardiovascular exam: PRESENT: irregular rhythm, +S1, +S2 Pulses: PRESENT: normal carotid pulses Vascular exam: PRESENT: normal capillary refill GI/Abdominal exam: PRESENT: normal bowel sounds, soft, other - Pendulous abdominal pannus. ABSENT: distended, guarding, rebound, tenderness Extremities exam: ABSENT: clubbing, pedal edema Musculoskeletal exam: PRESENT: normal inspection. ABSENT: deformity Neurological exam: PRESENT: alert, awake, oriented to person, oriented to place, oriented to situation, CN II-XII grossly intact. ABSENT: motor sensory deficit Psychiatric exam: PRESENT: Appropriate affect, normal mood Skin exam: PRESENT: dry, warm Results Laboratory Results: 03/20/20 05:05 03/20/20 05:05 03/19/20 03/19/20 03/19/20 16:20 16:20 23:02 Creatine Kinase 91 CK-MB (CK-2) 1.63 Troponin I < 0.012 < 0.012 NT-Pro-B Natriuret Pep 2500 H Impressions: Chest X-Ray 03/19/20 16:23 IMPRESSION: Hyperinflated lungs which can be seen with obstructive lung disease. No acute cardiopulmonary disease. Chest/Abdomen CTA 03/19/20 16:33 IMPRESSION: 1. No pulmonary embolism. 2. Scattered tree-in-bud nodularity in the right upper and lower lobe, consistent with infectious/inflammatory process. 3. Small bilateral pleural effusions. 4. Moderate cardiomegaly. No pericardial effusion. Assessment and Plan - Diagnosis (1) Chronic atrial fibrillation with rapid ventricular response Is this a current diagnosis for this admission?: Yes Plan: She is off the Cardizem drip. She is being seen by cardiology. She is on metoprolol tartrate 4 times a day now. Continue Eliquis. Metoprolol may require further titration to achieve a goal rate, versus addition of a different agent. When her heart rate is better controlled, we will get a physical therapy evaluation. (2) Chronic anticoagulation Is this a current diagnosis for this admission?: Yes (3) Community acquired pneumonia of right lung Qualifiers: Lung location: unspecified part of lung Qualified Code(s): J18.9 - Pneumo keyana, unspecified organism Is this a current diagnosis for this admission?: Yes Plan: I am not terribly convinced that she has an actual clinical pneumonia. For now, continue antibiotics, but these may not be continued for very long. (4) Emphysema of lung Qualifiers: Emphysema type: unspecified Qualified Code(s): J43.9 - Emphysema, unspecified Is this a current diagnosis for this admission?: Yes - Plan Summary Summary: Patient will be admitted to the medical floor on telemetry where she will rece annemarie routine supportive and symptomatic cares. She will be treated with an aggressive pulmonary toilet utilizing nebulized Xopenex, Atrovent, Pulmicort and Mucomyst. Intravenous Levaquin was initiated in the emergency room by the emergency room physician and will be continued at 500 mg IV daily with the addition of aztreonam 1 g IV every 8 hours due to beta-lactam allergy. Intravenous Cardizem and/or metoprolol will be used to control the patient's atrial fibrillation with rapid ventricular response as needed. Patient's usual medications will be resumed as soon as her medication list can be verified and reconciled. She will be treated with a cardiac diet. A lipid profile and thyroid profile will be obtained. CBCs, metabolic profiles, magnesium levels and additional laboratory and/or radiographic evaluations will be obtained as appropriate. - Time Time Spent with patient: 15-24 minutes Anticipated Discharge Disposition: Residential Facility Anticipated Discharge: within 72 hours
[2020-03-21] MEDS: LEVOFLOXACIN 500 MG/D5W RTU 500 MG/100 ML RTUPB IV SCH (17:42)
[2020-03-21] MEDS: ZOLPIDEM TARTRATE 5 MG TABLET PO SCH (21:36)
[2020-03-22] MEDS: IPRATROPIUM BROMIDE 0.02% NEB 0.5 MG/2.5 ML AMPUL NEB SCH ×2 (00:05→07:55)
[2020-03-22] MEDS: LEVALBUTEROL HCL NEB 1.25 MG/3 ML AMPUL NEB SCH ×2 (00:05→07:55)
[2020-03-22] MEDS: LEVOTHYROXINE SODIUM 0.1 MG TABLET PO SCH (05:37)
[2020-03-22] MEDS: METOPROLOL TARTRATE 50 MG TABLET PO SCH (05:37)
[2020-03-22] MEDS: PANTOPRAZOLE SODIUM 20 MG TABLET.DR PO SCH (05:37)
[2020-03-22] MEDS: AZTREONAM 1 GM in DEXTROSE 5%-WATER 50 ML IV SCH (05:37)
[2020-03-22] MEDS: BUDESONIDE NEB 0.5 MG/2 ML AMPUL NEB SCH (07:55)
[2020-03-22] MEDS: DOCUSATE SODIUM 100 MG CAPSULE PO SCH (10:17)
[2020-03-22] MEDS: APIXABAN 5 MG TABLET PO SCH (10:17)
[2020-03-22] MEDS: LIDOCAINE 5% (700 MG) TRANSDERMAL ADH..PATCH TP SCH (10:17)
[2020-03-22] MEDS: MODAFINIL 100 MG TABLET PO SCH (10:17)
--- NOTE | 2020-03-22 11:24 | PDOC PROGRESS REPORT ---
Subjective Progress Note for:: 03/22/20 Subjective:: RAYO BOURNE is a 89 year old female with history of COPD, hypertension, iron deficiency anemia, renal insufficiency, liver cirrhosis, atrial fibrillation, hypertension and esophageal varices who is consulted to our service for further evaluation and management of rapid atrial fibrillation. She had been having significant amount of back pain and a dry cough reason why she sought medical attention with her primary care provider yesterday at which time she was found to be in rapid atrial fibrillation. She came to our facility where she was found to have infection/inflammation on oh chest CT scan and was placed on antibiotics. She was also found to be in rapid atrial fibrillation and was placed on a Cardizem drip. Today she feels slightly better but continues to have significant back pain that is worse with movement. Her heart rate is slightly better controlled but she is still showing rapid A. fib at rest. Her [id number] score is 4 therefore she is anticoagulated with Eliquis. 03/22/20: The patient had an uneventful night and denies cardiac complaints this morning. Her blood pressure continues to be at goal. Her telemetry shows atrial fibr illation with a much better controlled rate. Her back pain is also improved. Physical exam on 03/22/2020: GENERAL: Pleasant and conversational. Oriented x3 with normal mood. Not in acute distress. Well groomed and well developed. HEENT: Normocephalic, atraumatic. Pupils equal. Sclerae anicteric. Oropharynx moist. NECK: No JVD. No carotid bruits. LUNGS: Clear to auscultation bilaterally. Normal respiratory effort without the use of accessory muscles or intercostal retractions. CARDIOVASCULAR: Irregularly irregular rate and rhythm, normal S1 and S2 without murmurs, rubs, or gallops. PMI not displaced. ABDOMEN: No masses or tenderness to palpation. No bruit. No splenomegaly or hepatomegaly. No abdominal aorta bruit noted. EXTREMITIES: No edema, no cyanosis, no clubbing. +2 pulses femoral and pedal pulses bilaterally. SKIN: No lesions or rashes. MUSCULOSKELETAL: No chest tenderness to palpation. NEUROLOGIC: Nonfocal. No gross sensory or motor deficits bilateral upper or lower extremities. Cardiac studies: Echocardiogram on 10/17/18: -LV is normal in size. -Mild concentric LVH. -EF 60-65%. -Wall motion assessment is limited. -Mild ROSANNA. -Mild MR, mild TR, mild AI, mild PI. Reason For Visit: COMMUNITY-ACQUIRED PNEUMONIA,ATRIAL FIBRILLATION Physical Exam Vital Signs: Temp Pulse Resp BP Pulse Ox 97.9 F 84 16 131/86 H 95 03/22/20 03:17 03/22/20 03:17 03/22/20 03:17 03/22/20 03:17 03/22/20 03:17 Intake & Output 03/20/20 03/21/20 03/22/20 06:59 06:59 06:59 Intake Total 150 1035 1180 Output Total 400 600 Balance -026 045 9200 Weight 86.9 kg 89.5 kg Results Laboratory Results: 03/20/20 05:05 03/20/20 05:05 03/19/20 03/19/20 03/19/20 16:20 16:20 23:02 Creatine Kinase 91 CK-MB (CK-2) 1.63 Troponin I < 0.012 < 0.012 NT-Pro-B Natriuret Pep 2500 H Impressions: Chest X-Ray 03/19/20 16:23 IMPRESSION: Hyperinflated lungs which can be seen with obstructive lung disease. No acute cardiopulmonary disease. Chest/Abdomen CTA 03/19/20 16:33 IMPRESSION: 1. No pulmonary embolism. 2. Scattered tree-in-bud nodularity in the right upper and lower lobe, consistent with infectious/inflammatory process. 3. Small bilateral pleural effusions. 4. Moderate cardiomegaly. No pericardial effusion. 03/20/20 05:05 03/20/20 05:05 MCV 93 fl (80-97) 03/20/20 05:05 MCH 30.9 pg (27.0-33.4) 03/20/20 05:05 MCHC 33.2 g/dL (32.0-36.0) 03/20/20 05:05 RDW 13.7 % (11.5-14.0) 03/20/20 05:05 Seg Neutrophils % 76.3 % (42-78) 03/19/20 16:20 Chloride 109 mmol/L (98-107) H 03/20/20 05:05 Carbon Dioxide 21 mmol/L (22-30) L 03/20/20 05:05 Anion Gap 7 (5-19) 03/20/20 05:05 Est GFR ( Amer) 53 (>60) L 03/20/20 05:05 Glucose 114 mg/dL (75-110) H 03/20/20 05:05 Calcium 8.4 mg/dL (8.4-10.2) 03/20/20 05:05 Magnesium 2.1 mg/dL (1.6-2.3) 03/19/20 16:20 Total Bilirubin 0.5 mg/dL (0.2-1.3) 03/19/20 16:20 AST 31 U/L (14-36) 03/19/20 16:20 Alkaline Phosphatase 59 U/L (38-126) 03/19/20 16:20 Total Protein 7.7 g/dL (6.3-8.2) 03/19/20 16:20 Albumin 4.2 g/dL (3.5-5.0) 03/19/20 16:20 Urine Color YELLOW 03/20/20 06:35 Urine Appearance CLEAR 03/20/20 06:35 Urine pH 5.0 (5.0-9.0) 03/20/20 06:35 Ur Specific [place] 1.032 03/20/20 06:35 Urine Protein 100 mg/dL (NEGATIVE) H 03/20/20 06:35 Urine Glucose (UA) NEGATIVE mg/dL (NEGATIVE) 03/20/20 06:35 Urine Ketones NEGATIVE mg/dL (NEGATIVE) 03/20/20 06:35 Urine Blood NEGATIVE (NEGATIVE) 03/20/20 06:35 Urine RBC (Auto) 0 /HPF 03/20/20 06:35 03/19/20 03/19/20 03/19/20 16:20 16:20 23:02 Creatine Kinase 91 CK-MB (CK-2) 1.63 Troponin I < 0.012 < 0.012 NT-Pro-B Natriuret Pep 2500 H Current Medication List Generic Name Dose Route Start Last Admin Trade Name Freq PRN Reason Stop Dose Admin Acetaminophen 650 mg 03/19/20 21:30 Tylenol 325 Mg Tablet PO 04/18/20 21:29 Q4HP PRN pain or temp greater than 101F Apixaban 5 mg 03/19/20 22:00 03/21/20 21:36 Eliquis 5 Mg Tablet PO 08/21/20 21:59 5 mg Q12 ALVIN Administration Budesonide 0.5 mg 03/20/20 08:00 03/21/20 21:12 Pulmicort Neb 0.5 Mg/2 Ml Ampul NEB 04/19/20 07:59 0.5 mg RTBID ALVIN Administration Docusate Sodium 100 mg 03/20/20 10:00 03/21/20 17:42 Colace 100 Mg Capsule PO 04/19/20 09:59 100 mg BID ALVIN Administration Guaifenesin 200 mg 03/19/20 21:30 Robitussin Syrup 200 Mg/10 Ml Ud Cup PO 04/18/20 21:29 Q4HP PRN COUGH Levofloxacin/Dextrose 500 mg in 100 mls @ 100 mls/hr 03/20/20 18:00 03/21/20 19:00 Levaquin Rtu 500mg/D5w 100 Ml Premix IV 03/27/20 17:59 Infused QPM ALVIN Infusion Aztreonam 1 gm/ Dextrose 50 mls @ 100 mls/hr 03/19/20 22:00 03/22/20 05:37 IV 03/26/20 21:59 100 mls/hr Q8 ALVIN Administration Ipratropium [place] 0.5 mg 03/20/20 00:00 03/22/20 00:05 Atrovent 0.02% Neb 0.5 Mg/2.5 Ml Ampul NEB 04/19/20 00:00 0.5 mg RTQ8 ALVIN Administration Levalbuterol HCl 0.63 mg 03/19/20 21:30 Xopenex Neb 0.63 Mg/3 Ml Ampul NEB 04/18/20 21:29 RTQ2HP PRN SHORTNESS OF BREATH Levalbuterol HCl 1.25 mg 03/20/20 00:00 03/22/20 00:05 Xopenex Neb 1.25 Mg/3 Ml Ampul NEB 04/19/20 00:00 1.25 mg RTQ8 ALVIN Administration Levothyroxine Sodium 0.2 mg 03/20/20 06:00 03/22/20 05:37 Synthroid 0.1 Mg Tablet PO 04/19/20 05:59 0.2 mg Q6AM ALVIN Administration Lidocaine 1 patch 03/20/20 12:00 03/21/20 10:41 Lidoderm 5% (700 Mg) Transdermal Patch TP 04/19/20 11:59 1 patch DAILY ALVIN Administration Lorazepam 1 mg 03/19/20 21:58 Ativan Inj 2 Mg/1 Ml Vial IV 03/26/20 21:57 Q4HP PRN ANXIETY/AGITATION Meclizine HCl 25 mg 03/19/20 21:53 Antivert 25 Mg Tablet PO 04/18/20 21:52 Q8HP PRN FOR VERTIGO Metoprolol Tartrate 50 mg 03/20/20 18:00 03/22/20 05:37 Lopressor 50 Mg Tablet PO 04/19/20 17:59 50 mg Q6 ALVIN Administration Modafinil 100 mg 03/20/20 10:00 03/21/20 10:47 Provigil 100 Mg Tablet PO 03/27/20 09:59 100 mg DAILY ALVIN Administration Morphine Sulfate 2 - 4 mg 03/19/20 21:58 03/20/20 21:49 Morphine 10 Mg/Ml Inj IV 03/26/20 21:57 4 mg Q2HP PRN Administration See protocol Protocol Ondansetron HCl 4 mg 03/21/20 06:49 Zofran Odt 4 Mg Tablet PO 04/20/20 06:48 Q4HP PRN NAUSEA Pantoprazole Sodium 20 mg 03/20/20 06:00 03/22/20 05:[address] Tablet PO 04/19/20 05:59 20 mg Q6AM ALVIN Administration Sodium Chloride 2.5 ml 03/19/20 22:00 03/22/20 05:37 Saline Flush 2.5 Ml Monoject Prefil Syrin IV 04/18/20 21:59 2.5 ml Q8 ALVIN Administration Zolpidem Tartrate 10 mg 03/19/20 22:00 03/21/20 21:36 Ambien 5 Mg Tablet PO 03/26/20 21:59 10 mg QHS ALVIN Administration Discontinued Medications Generic Name Dose Route Start Last Admin Trade Name Freq PRN Reason Stop Dose Admin Carvedilol 12.5 mg 03/19/20 22:00 Coreg 12.5 Mg Tablet PO 04/18/20 21:59 Q12 ALVIN Diltiazem HCl 5 mg 03/19/20 16:39 03/19/20 17:10 Cardizem Inj 25 Mg/5 Ml Vial IV 03/19/20 16:40 5 mg NOW ONE Administration Diltiazem HCl 15 mg 03/19/20 22:00 03/19/20 23:22 Cardizem Inj 25 Mg/5 Ml Vial IV 03/19/20 22:01 15 mg NOW ONE Administration Famotidine 20 mg 03/19/20 22:00 Pepcid 20 Mg Tablet PO 04/18/20 21:59 QHS [facility] Levofloxacin/Dextrose 750 mg in 150 mls @ 100 mls/hr 03/19/20 17:16 03/19/20 18:35 Levaquin Rtu 750 Mg/D5w 150 Ml Premix IV 03/19/20 18:45 Infused NOW ONE Infusion Diltiazem HCl 125 mg in 125 mls @ 0 mls/hr 03/19/20 21:42 03/20/20 10:10 Cardizem Rtu Inj 125 Mg-D5w 125 Ml Premix IV 04/18/20 21:41 Infused CONTINUOUS PRN Titration THIS MED IS NOT "PRN" Protocol Titrate Metoprolol Succinate 50 mg 03/19/20 21:57 03/19/20 22:45 Toprol Xl 50 Mg Tab.Sr PO 03/19/20 21:58 50 mg NOW ONE Administration Metoprolol Succinate 100 mg 03/20/20 10:00 03/20/20 10:05 Toprol Xl 50 Mg Tab.Sr PO 04/19/20 09:59 100 mg DAILY [facility] Administration Morphine Sulfate 4 mg 03/19/20 19:28 03/19/20 20:23 Morphine 10 Mg/Ml Inj IV 03/19/20 19:29 4 mg NOW ONE Administration Nifedipine 30 mg 03/20/20 10:00 Procardia Xl 30 Mg Tablet PO 04/19/20 09:59 DAILY [facility] Ondansetron HCl 4 mg 03/19/20 19:28 03/19/20 20:24 Zofran Inj/Pf 4 Mg/2 Ml Sdv IV 03/19/20 19:29 4 mg NOW ONE Administration Assessment & Plan - Diagnosis (1) Paroxysmal atrial fibrillation with rapid ventricular response Plan: 89-year-old female with a [id number] score of 4 for which she is anticoagulated with Eliquis without bleeding complications. Her heart rate is improved and likely exacerbated by her back pain. I expect her rate to continue to improve as her back pain is better controlled. Given her age, she is at an elevated risk of high grade block therefore we will continue to avoid adding any more rate- controlling agents, she is asymptomatic and without heart failure or ischemic symptoms. She is unaware of her atrial fibrillation. Recommendations: -May transition to lopressor 100mg po bid. -I will arrange for follow up in the office once the patient discharged. -No new cardiac recommendations. -Cardiology will sign off for now, please reconsult if clinically necessary. (2) Hypertension Qualifiers: Hypertension type: essential hypertension Qualified Code(s): I10 - Essential (primary) hypertension Is this a current diagnosis for this admission?: Yes Plan: Her blood pressure is now at goal. Recommendations: -Continue with current management.
[2020-03-22] MEDS ORDERED: METOPROLOL TARTRATE 50 MG TABLET PO ONE (11:40)
[2020-03-22] MEDS ORDERED: AZITHROMYCIN 250 MG TABLET PO ONE (11:42)
--- NOTE | 2020-03-22 12:43 | PDOC DISCHARGE SUMMARY ---
Impression - Admit/DC Date/PCP Admission Date/Primary Care Provider: 03/19/20 19:22 JACKELINE TRENT MD Discharge Date: 03/22/20 - Discharge Diagnosis (1) Paroxysmal atrial fibrillation with rapid ventricular response Is this a current diagnosis for this admission?: Yes (2) Community acquired pneumonia of right lung Is this a current diagnosis for this admission?: Yes (3) Chronic anticoagulation Is this a current diagnosis for this admission?: Yes (4) Emphysema of lung Is this a current diagnosis for this admission?: Yes (5) Back pain Is this a current diagnosis for this admission?: Yes (6) GERD (gastroesophageal reflux disease) Is this a current diagnosis for this admission?: Yes (7) Hypertension Is this a current diagnosis for this admission?: Yes (8) Hypothyroidism Is this a current diagnosis for this admission?: Yes - Additional Information Resuscitation Status: Do Not Resuscitate Referrals: JACKELINE TRENT MD [Primary Care Provider] - Follow up as needed (sticker in book) KAN REN MD [ACTIVE PROVISIONAL STAFF] - (sticker i book) Prescriptions: Lidocaine [Lidoderm 5% (700 mg) Transdermal Patch] 1 patch TP DAILY #15 adh..patch Metoprolol Tartrate [Lopressor 100 mg Tablet] 100 mg PO Q12 #60 tab Azithromycin [Zithromax 250 mg Tablet] 250 mg PO DAILY #4 tablet Home Medications: Levothyroxine Sodium 200 mcg PO Q6AM 01/25/16 Telmisartan [Micardis 80 mg Tablet] 80 mg PO DAILY 01/25/16 Modafinil [Provigil 100 mg Tablet] 100 mg PO DAILY 03/09/16 Apixaban [Eliquis 5 mg Tablet] 5 mg PO Q12 03/19/20 Colestipol HCl [Colestid 1 gm Tablet] 1 gm PO ASDIR PRN 03/19/20 Ergocalciferol (Vitamin D2) [Drisdol 50,000 unit (1.25MG) Capsule] 50,000 unit PO PORTILLO@1000 03/19/20 Hydroxychloroquine Sulfate [Plaquenil 200 mg Tablet] 200 mg PO DAILY 03/19/20 Meclizine HCl [Antivert 25 mg Tablet] 25 mg PO Q8HP PRN 03/19/20 Nifedipine [Nifedipine ER] 30 mg PO DAILY 03/19/20 Omeprazole 20 mg PO DAILYP PRN 03/19/20 Zolpidem Tartrate [Zolpidem Tartrate ER] 6.25 mg PO QHS 03/19/20 Acetaminophen [Tylenol 325 mg Tablet] 650 mg PO Q4HP PRN tablet 03/22/20 Azithromycin [Zithromax 250 mg Tablet] 250 mg PO DAILY #4 tablet 03/22/20 Lidocaine [Lidoderm 5% (700 mg) Transdermal Patch] 1 patch TP DAILY #15 adh..patch 03/22/20 Metoprolol Tartrate [Lopressor 100 mg Tablet] 100 mg PO Q12 #60 tab 03/22/20 History of Present Illiness History of Present Illness: According to admitting provider: COLIN BOURNE is a 89 year old female who presents the emergency room from her primary care provider's office with atrial fibrillation with a rapid ventricular response. She admits that she had been unaware of her tachycardia at the time it was discovered because she had gone to the doctor for her right costovertebral angle pain. She admits associated mild dyspnea and nonproductive cough that is slightly increased over her baseline dyspnea and chronic cough due to her emphysema. She admits accompanying constant, nonradiating, progressively more intense, crampy right CVA pain over the last 3 weeks which she has previously experienced when she had pneumonia and which has become exquisitely severe for the last week. She denies other ass ociated or accompanying signs and symptoms. She has not identified any aggravating or ameliorating factors for her tachycardia. In the emergency room she was found to have atrial fibrillation with a rapid ventricular response which improved with Valsalva maneuver and 5 mg of Cardizem administered IV x1. Her rapid ventricular response recurred over a period of time after the administration of Cardizem and no further treatment of her heart rate was provided. Small right upper and lower lobe infiltrate/inflammation areas were detected on CT scan of the chest. Patient was subsequently admitted to the hospital per the pneumonia protocol on the medical floor for further evaluation and treatment. Hospital Course Hospital Course: Patient was admitted to the hospital for evaluation of atrial fibrillation with rapid ventricular response. Her initial EKG showed heart rate of 162 bpm. She was given Cardizem bolus and then started on intravenous Cardizem. She was also taken for a CT of the chest which was negative for pulmonary embolism but did show tree-in-bud opacity of the right lung suspicious for infectious/inflammatory process. She was empirically treated for potential pneumonia and started on Levaquin and aztreonam. CBC showed no leukocytosis. Metabolic panel remarkable for mildly elevated creatinine 1.28 [does not meet criteria for HORTENCIA] but normal potassium calcium and magnesium levels. Troponin was negative x2. Patient was treated for A. fib with RVR and was seen by the bakery deliverer. Patient was started on Lopressor p.o. 50 mg every 6 hours. Cardiology recommending Lopressor 100 mg twice a day today. This has been initiated. Patient will be following up with cardiology in the office. Patient's heart rate today is better controlled and on my encounter patient was 100 bpm still in atrial fibrillation. Patient will be discharged with 4 days of azithromycin for possible pneumonia. Patient will like to be tested for COVID which will be done prior to patient's departure and she will be following up with her medical record department to collect the results of the test. Physical Exam Vital Signs: Temp Pulse Resp BP Pulse Ox 97.4 F 114 H 18 115/88 H 100 03/22/20 08:07 03/22/20 08:07 03/22/20 08:07 03/22/20 08:07 03/22/20 08:07 Intake & Output 03/21/20 03/22/20 03/23/20 06:59 06:59 06:59 Intake Total 1035 1180 Output Total 600 500 Balance 435 680 Weight 89.5 kg 89.6 kg General appearance: PRESENT: no acute distress, cooperative Neck exam: ABSENT: JVD Respiratory exam: PRESENT: clear to auscultation loida, unlabored Cardiovascular exam: PRESENT: irregular rhythm, +S1, +S2. ABSENT: tachycardia Neurological exam: PRESENT: alert, awake, oriented to person, oriented to place, oriented to time Results Laboratory Results: WBC 7.6 10^3/uL (4.0-10.5) 03/20/20 05:05 RBC 3.58 10^6/uL (3.72-5.28) L 03/20/20 05:05 Hgb 11.1 g/dL (12.0-15.5) L 03/20/20 05:05 Hct 33.3 % (36.0-47.0) L 03/20/20 05:05 MCV 93 fl (80-97) 03/20/20 05:05 MCH 30.9 pg (27.0-33.4) 03/20/20 05:05 MCHC 33.2 g/dL (32.0-36.0) 03/20/20 05:05 RDW 13.7 % (11.5-14.0) 03/20/20 05:05 Plt Count 211 10^3/uL (150-450) 03/20/20 05:05 Lymph % (Auto) 13.6 % (13-45) 03/19/20 16:20 [place] % (Auto) 6.8 % (3-13) 03/19/20 16:20 Eos % (Auto) 2.4 % (0-6) 03/19/20 16:20 Baso % (Auto) 0.9 % (0-2) 03/19/20 16:20 Absolute Neuts (auto) 6.2 10^3/uL (1.7-8.2) 03/19/20 16:20 Absolute Lymphs (auto) 1.1 10^3/uL (0.5-4.7) 03/19/20 16:20 Absolute Monos (auto) 0.6 10^3/uL (0.1-1.4) 03/19/20 16:20 Absolute Eos (auto) 0.2 10^3/uL (0.0-0.6) 03/19/20 16:20 Absolute Basos (auto) 0.1 10^3/uL (0.0-0.2) 03/19/20 16:20 Seg Neutrophils % 76.3 % (42-78) 03/19/20 16:20 PT 16.0 SEC (11.4-15.4) H 03/19/20 16:20 INR 1.27 03/19/20 16:20 APTT 39.4 SEC (23.5-35.8) H 03/19/20 16:20 Sodium 136.5 mmol/L (137-145) L 03/20/20 05:05 Potassium 4.9 mmol/L (3.6-5.0) 03/20/20 05:05 Chloride 109 mmol/L (98-107) H 03/20/20 05:05 Carbon Dioxide 21 mmol/L (22-30) L 03/20/20 05:05 Anion Gap 7 (5-19) 03/20/20 05:05 BUN 22 mg/dL (7-20) H 03/20/20 05:05 Creatinine 1.17 mg/dL (0.52-1.25) 03/20/20 05:05 Est GFR ( Amer) 53 (>60) L 03/20/20 05:05 Est GFR (MDRD) Non-Af 44 (>60) L 03/20/20 05:05 Glucose 114 mg/dL (75-110) H 03/20/20 05:05 Calcium 8.4 mg/dL (8.4-10.2) 03/20/20 05:05 Magnesium 2.1 mg/dL (1.6-2.3) 03/19/20 16:20 Total Bilirubin 0.5 mg/dL (0.2-1.3) 03/19/20 16:20 Direct Bilirubin 0.0 mg/dL (0.0-0.4) 03/19/20 16:20 Neonat Total Bilirubin Not Reportable 03/19/20 16:20 Neonat Direct Bilirubin Not Reportable 03/19/20 16:20 Neonat Indirect Bili Not Reportable 03/19/20 16:20 AST 31 U/L (14-36) 03/19/20 16:20 ALT 23 U/L (<35) 03/19/20 16:20 Alkaline Phosphatase 59 U/L (38-126) 03/19/20 16:20 Creatine Kinase 91 U/L (30-135) 03/19/20 16:20 CK-MB (CK-2) 1.63 ng/mL (<4.55) 03/19/20 16:20 Troponin I < 0.012 ng/mL 03/19/20 23:02 NT-Pro-B Natriuret Pep 2500 pg/mL (<450) H 03/19/20 16:20 Total Protein 7.7 g/dL (6.3-8.2) 03/19/20 16:20 Albumin 4.2 g/dL (3.5-5.0) 03/19/20 16:20 Urine Color YELLOW 03/20/20 06:35 Urine Appearance CLEAR 03/20/20 06:35 Urine pH 5.0 (5.0-9.0) 03/20/20 06:35 Ur Specific [place] 1.032 03/20/20 06:35 Urine Protein 100 mg/dL (NEGATIVE) H 03/20/20 06:35 Urine Glucose (UA) NEGATIVE mg/dL (NEGATIVE) 03/20/20 06:35 Urine Ketones NEGATIVE mg/dL (NEGATIVE) 03/20/20 06:35 Urine Blood NEGATIVE (NEGATIVE) 03/20/20 06:35 Urine Nitrite (Reflex) NEGATIVE (NEGATIVE) 03/20/20 06:35 Urine Bilirubin NEGATIVE (NEGATIVE) 03/20/20 06:35 Urine Urobilinogen NEGATIVE mg/dL (<2.0) 03/20/20 06:35 Leukocyte Esterase Rfl NEGATIVE (NEGATIVE) 03/20/20 06:35 Urine RBC (Auto) 0 /HPF 03/20/20 06:35 Urine Bacteria (Auto) 1+ /HPF 03/20/20 06:35 Urine WBC (Reflex) 2 /HPF 03/20/20 06:35 Squamous Epi Cells Auto <1 /HPF 03/20/20 06:35 Urine Mucus (Auto) RARE /LPF 03/20/20 06:35 Urine Ascorbic Acid NEGATIVE (NEGATIVE) 03/20/20 06:35 03/19/20 03/19/20 16:20 23:02 CK-MB (CK-2) 1.63 Troponin I < 0.012 < 0.012 NT-Pro-B Natriuret Pep 2500 H Impressions: Chest X-Ray 03/19/20 16:23 IMPRESSION: Hyperinflated lungs which can be seen with obstructive lung disease. No acute cardiopulmonary disease. Chest/Abdomen CTA 03/19/20 16:33 IMPRESSION: 1. No pulmonary embolism. 2. Scattered tree-in-bud nodularity in the right upper and lower lobe, consistent with infectious/inflammatory process. 3. Small bilateral pleural effusions. 4. Moderate cardiomegaly. No pericardial effusion. Plan Time Spent: Less than 30 Minutes Stroke Is this a Stroke Patient?: No Acute Heart Failure - Is this a Heart Failure Patient?: No
[2020-03-22 14:03] VITALS: BP 108/69
== END 2020-03-22 14:21 | disposition home or self-care (01) | DRG 308 ==
LOC: ER 16:13 → EH 19:22 → 3W 03-20 00:33
PROVIDERS: ADMIT Emergency Medicine; ATTEND Family Medicine
DX: I48.0 Paroxysmal atrial fibrillation (principal); J18.9 Pneumonia, unspecified organism; I85.00 Esophageal varices without bleeding; Z79.01 Long term (current) use of anticoagulants; J43.9 Emphysema, unspecified; K21.9 Gastro-esophageal reflux disease without esophagitis; I10 Essential (primary) hypertension; E03.9 Hypothyroidism, unspecified; Z66 Do not resuscitate; D50.9 Iron deficiency anemia, unspecified; N28.9 Disorder of kidney and ureter, unspecified; K74.60 Unspecified cirrhosis of liver; M54.9 Dorsalgia, unspecified; G89.29 Other chronic pain; M06.9 Rheumatoid arthritis, unspecified; Z85.038 Personal history of other malignant neoplasm of large intestine; Z90.49 Acquired absence of other specified parts of digestive tract; Z87.891 Personal history of nicotine dependence; Z82.49 Family history of ischemic heart disease and other diseases of the circulatory system; Z79.899 Other long term (current) drug therapy; Z88.2 Allergy status to sulfonamides; Z88.0 Allergy status to penicillin; Z88.7 Allergy status to serum and vaccine
CPT/HCPCS: 36415; 71045; 71275; 80048; 80053; 81001; 82550; 82553; 83735; 83880; 84484; 85025; 85027; 85610; 85730; 87635; 93005; 93010; 94640; 99285; C9803; J1956; J2270; J2405; J3490; J7060

== ENCOUNTER 2020-04-07 18:24 | Inpatient (IN) | payer MEDICARE, OTHER ==
--- NOTE | 2020-04-07 19:38 | ER Document Report ---
ED Medical Screen (RME) - General Chief Complaint: Abnormal Lab Results Stated Complaint: KIDNEY ISSUE/AFIB Time Seen by Provider: 04/07/20 19:33 Mode of Arrival: Wheelchair Information source: Patient Notes: 89-year-old female presented to ED for A. fib and kidney issues. She states her Dr. Ellis told her she needed to return to the ED because her kidney function was not what he liked. Her labs were abnormal. He states that she also her A. fib was not under control and she needed to come back to the ER. Patient is alert oriented respirations regular nonlabored speaking in full sentences. I have greeted and performed a rapid initial assessment of this patient. A comprehensive ED assessment and evaluation of the patient, analysis of test results and completion of medical decision making process will be conducted by an additional ED providers. TRAVEL OUTSIDE OF THE [place] IN LAST 30 DAYS: No - Related Data Allergies/Adverse Reactions: Sulfa (Sulfonamide Antibiotics) Allergy (Intermediate, Verified 03/19/20 17:27) FLU-LIKE SYMPTOMS Penicillins Allergy (Mild, Verified 03/19/20 17:27) Hives pneumococcal vaccine Allergy (Verified 03/19/20 17:27) Arm Swells Past Medical History - Past Medical History Cardiac Medical History: Reports: Hx Atrial Fibrillation - Chronic, Hx Hypercholesterolemia, Hx Hypertension Denies: Hx Congestive Heart Failure, Hx Coronary Artery Disease, Hx DVT, Hx Heart Attack, Hx Peripheral Vascular Disease, Hx Pulmonary Embolism, Hx Heart Murmur Pulmonary Medical History: Reports: Hx Bronchitis, Hx COPD - Emphysema, Hx Pneumonia, Hx Sleep Apnea - CPAP Denies: Hx Asthma, Hx Respiratory Failure, Hx Tuberculosis Neurological Medical History: Denies: Hx Cerebrovascular Accident, Hx Seizures Endocrine Medical History: Reports: Hx Hypothyroidism. Denies: Hx Diabetes Mellitus Type 1, Hx Diabetes Mellitus Type 2, Hx Graves' Disease, Hx Hyperthyroidism Renal/ Medical History: Denies: Hx End Stage Renal Disease, Hx Kidney Stones, Hx Peritoneal Dialysis Malignancy Medical History: Reports: Hx Colorectal Cancer - Colon cancer: status post right colon resection. Denies: Hx Leukemia, Hx Lung Cancer GI Medical History: Reports: Hx Diverticulitis, Hx Gastroesophageal Reflux Disease. Denies: Hx Cirrhosis, Hx Crohn's Disease, Hx Hiatal Hernia, Hx Irritable Bowel, Hx Liver Failure, Hx Pancreatitis, Hx Ulcer, Hx Ulcerative Colitis Musculoskeltal Medical History: Reports Hx Arthritis - RA, Denies Hx Fibromyalgia, Denies Hx Muscular Dystrophy, Denies Hx Systemic Lupus Erythematosus Skin Medical History: Denies Hx Eczema, Denies Hx Psoriasis Psychiatric Medical History: Reports: Hx Depression Traumatic Medical History: Denies: Hx Fractures Infectious Medical History: Denies: Hx HIV Past Surgical History: Reports: Hx Abdominal Surgery - intestine/colon CA, Hx Cholecystectomy, Hx Tonsillectomy, Other - Right hemicolectomy. Denies: Hx Appendectomy, Hx Bowel Surgery, Hx Section, Hx Colostomy, Hx Coronary Artery Bypass Graft, Hx Gastric Bypass Surgery, Hx Herniorrhaphy, Hx Hysterectomy, Hx Mastectomy, Hx Open Heart Surgery, Hx Pacemaker, Hx Tubal Ligation - Immunizations Hx Diphtheria, Pertussis, Tetanus Vaccination: Yes Physical Exam - Vital signs Vitals: Temp Pulse Resp BP Pulse Ox 97.6 F 97 16 145/84 H 98 04/07/20 18:33 04/07/20 18:33 04/07/20 18:33 04/07/20 18:33 04/07/20 18:33 Course - Vital Signs Vital signs: Temp Pulse Resp BP Pulse Ox 97.6 F 97 16 145/84 H 98 04/07/20 18:33 04/07/20 18:33 04/07/20 18:33 04/07/20 18:33 04/07/20 18:33
--- NOTE | 2020-04-07 20:02 | RADIOLOGY REPORT (SQ) ---
EXAM DESCRIPTION: CHEST 2 VIEWS IMAGES COMPLETED DATE/TIME: 04/07/2020 7:50 pm REASON FOR STUDY: A. fib COMPARISON: 03/27/2020 EXAM PARAMETERS: NUMBER OF VIEWS: two views TECHNIQUE: Digital Frontal and Lateral radiographic views of the chest acquired. RADIATION DOSE: NA LIMITATIONS: none FINDINGS: LUNGS AND PLEURA: Hyperexpansion of the lungs and flattening of the diaphragms, unchanged findings. Chronic mild prominence of the interstitial markings in the lungs. No acute pulmonary co nsolidation. No pneumothorax or pleural effusion. MEDIASTINUM AND HILAR STRUCTURES: No masses or contour abnormalities. HEART AND VASCULAR STRUCTURES: Cardiomegaly, stable finding. No evidence for failure. BONES: No acute findings. HARDWARE: None in the chest. OTHER: No other significant finding. IMPRESSION: 1. No significant interval changes since the prior examination dated 03/27/2020. Chroni c changes in the lungs. No acute findings. 2. Cardiomegaly, stable finding. TECHNICAL DOCUMENTATION: JOB ID: [id number] 2010 [employer]- All Rights Reserved Reading location - IP/workstation name: [email or web address]
[2020-04-07 20:03] LABS: ABSOLUTE BASOPHILS # (AUTO) 0.1 10^3/uL (0.0-0.2); ABSOLUTE EOSINOPHILS # (AUTO) 0.2 10^3/uL (0.0-0.6); ABSOLUTE LYMPHOCYTES (AUTO) 0.8 10^3/uL (0.5-4.7); ABSOLUTE MONOCYTES (AUTO) 0.6 10^3/uL (0.1-1.4); ABSOLUTE NEUT (AUTO) 7.1 10^3/uL (1.7-8.2); BASOPHILS % (AUTO) 0.9 % (0-2); EOSINOPHILS % (AUTO) 2.2 % (0-6); HEMATOCRIT 36.1 % (36.0-47.0); HEMOGLOBIN 11.9 g/dL (12.0-15.5); LYMPHOCYTES % (AUTO) 9.4 % (13-45); MEAN CORPUSCULAR HEMOGLOBIN 30.2 pg (27.0-33.4); MEAN CORPUSCULAR VOLUME 92 fl (80-97); MONOCYTES % (AUTO) 7.1 % (3-13); PLATELET COUNT 264 10^3/uL (150-450); RED BLOOD COUNT 3.94 10^6/uL (3.72-5.28); RED CELL DISTRIBUTION WIDTH 14.1 % (11.5-14.0); SEGMENTED NEUTROPHILS % (AUTO) 80.4 % (42-78); TOTAL CELLS COUNTED % (AUTO) 100 %; WHITE BLOOD COUNT 8.8 10^3/uL (4.0-10.5)
[2020-04-07 20:23] LABS: ALBUMIN 4.3 g/dL (3.5-5.0); ALKALINE PHOSPHATASE 57 U/L (38-126); ANION GAP 8 (5-19); ASPARTATE AMINO TRANSFERASE 24 U/L (14-36); BILIRUBIN,TOTAL 0.4 mg/dL (0.2-1.3); BLOOD UREA NITROGEN 42 mg/dL (7-20); CALCIUM 8.7 mg/dL (8.4-10.2); CARBON DIOXIDE 26 mmol/L (22-30); CHLORIDE 105 mmol/L (98-107); GLUCOSE 119 mg/dL (75-110); POTASSIUM 3.8 mmol/L (3.6-5.0); TOTAL PROTEIN 7.6 g/dL (6.3-8.2)
--- NOTE | 2020-04-07 21:33 | ER Document Report ---
ED General - General Chief Complaint: Abnormal Lab Results Stated Complaint: KIDNEY ISSUE/AFIB Time Seen by Provider: 04/07/20 19:33 Primary Care Provider: ARACELI ROSE MD [Primary Care Provider] - Follow up as needed Mode of Arrival: Wheelchair TRAVEL OUTSIDE OF THE [place] IN LAST 30 DAYS: No - HPI Notes: Patient is an 89-year-old female who presents to the emergency department for evaluation. She was sent in by her drum worker. The patient has been admitted and readmitted to the hospital over the last several weeks with rapid atrial fibrillation and new onset congestive heart failure. She is currently on metoprolol 100 mg twice a day, amiodarone 400 mg twice a day, anticoagulated on Eliquis, and is now on Lasix 40 mg daily. She went to see Dr. Ellis, her drum worker today. He states that her atrial fibrillation is still not well controlled, her kidney function has taken a hit, and he sent her to the ER for further evaluation. She states that she is still dyspneic with exertion, states she feels like "her stomach will break in half" when she walks a few feet. She states that she has had some chest discomfort when drinking water, but denies any other chest pain. She states she has been taking her medications as prescri bed. - Related Data Allergies/Adverse Reactions: Sulfa (Sulfonamide Antibiotics) Allergy (Intermediate, Verified 03/19/20 17:27) FLU-LIKE SYMPTOMS Penicillins Allergy (Mild, Verified 03/19/20 17:27) Hives pneumococcal vaccine Allergy (Verified 03/19/20 17:27) Arm Swells Home Medications: Amiodarone 400 mg twice daily, metoprolol XL 100 mg twice daily, Lasix 40 mg daily, Synthroid 200 mcg daily, Provigil 200 mg daily, Eliqui s 500 mg twice daily, zolpidem ER 6.25 mg at bedtime, omeprazole 20 mg daily as needed, vitamin D2 50,000 units weekly, colestipol 1 g p.o. daily as needed, telmisartan 80 mg daily Past Medical History - General Information source: Patient - Social History Smoking Status: Never Smoker Frequency of alcohol use: None Drug Abuse: None Family History: DM - Mother, Other - Congestive heart failure: Father Patient has homicidal ideation: No - Past Medical History Cardiac Medical History: Reports: Hx Atrial Fibrillation - Chronic, Hx Congestive Heart Failure, Hx Hypercholesterolemia, Hx Hypertension Denies: Hx Coronary Artery Disease, Hx DVT, Hx Heart Attack, Hx Peripheral Vascular Disease, Hx Pulmonary Embolism, Hx Heart Murmur Pulmonary Medical History: Reports: Hx Bronchitis, Hx COPD - Emphysema, Hx Pneumonia, Hx Sleep Apnea - CPAP Denies: Hx Asthma, Hx Respiratory Failure, Hx Tuberculosis Neurological Medical History: Denies: Hx Cerebrovascular Accident, Hx Seizures Endocrine Medical History: Reports: Hx Hypothyroidism. Denies: Hx Diabetes Mellitus Type 1, Hx Diabetes Mellitus Type 2, Hx Graves' Disease, Hx Hyperthyroidism Renal/ Medical History: Denies: Hx End Stage Renal Disease, Hx Kidney Stones, Hx Peritoneal Dialysis Malignancy Medical History: Reports: Hx Colorectal Cancer - Colon cancer: status post right colon resection. Denies: Hx Leukemia, Hx Lung Cancer GI Medical History: Reports: Hx Cirrhosis, Hx Diverticulitis, Hx Gastroesophageal Reflux Disease. Denies: Hx Crohn's Disease, Hx Hiatal Hernia, Hx Irritable Bowel, Hx Liver Failure, Hx Pancreatitis, Hx Ulcer, Hx Ulcerative Colitis Musculoskeletal Medical History: Reports Hx Arthritis - RA, Denies Hx Fibromyalgia, Denies Hx Muscular Dystrophy, Denies Hx Systemic Lupus Erythematosus Skin Medical History: Denies Hx Eczema, Denies Hx Psoriasis Psychiatric Medical History: Reports: Hx Depression Traumatic Medical History: Denies: Hx Fractures Infectious Medical History: Denies: Hx HIV Past Surgical History: Reports: Hx Abdominal Surgery - intestine/colon CA, Hx Cholecystectomy, Hx Tonsillectomy, Other - Right hemicolectomy. Denies: Hx Appendectomy, Hx Bowel Surgery, Hx Section, Hx Colostomy, Hx Coronary Artery Bypass Graft, Hx Gastric Bypass Surgery, Hx Herniorrhaphy, Hx Hysterectomy, Hx Mastectomy, Hx Open Heart Surgery, Hx Pacemaker, Hx Tubal L igation - Immunizations Hx Diphtheria, Pertussis, Tetanus Vaccination: Yes Review of Systems - Review of Systems Constitutional: Malaise, Weakness Cardiovascular: See HPI Respiratory: See HPI -: Yes All other systems reviewed and negative Physical Exam - Vital signs Vitals: Temp Pulse Resp BP Pulse Ox 97.6 F 97 16 145/84 H 98 04/07/20 18:33 04/07/20 18:33 04/07/20 18:33 04/07/20 18:33 04/07/20 18:33 - Notes Notes: This is a very pleasant 89-year-old female who appears younger than her stated age, no acute distress. Vital signs reviewed, please refer to chart. Head is normocephalic, atraumatic. Pupils equal round, reactive to light. Neck is supple without meningismus. Heart is irregularly irregular. Lungs are clear to auscultation bilaterally. Abdomen is soft, nontender, normoactive bowel sounds throughout. Extremities without cyanosis, clubbing. She does have trace pitting edema in the pretibial region. Posterior calves are nontender. Peripheral pulses are equal. Skin is warm and dry. Patient is awake, alert, neurological exam is nonfocal. Course - Re-evaluation Re-evalutation: 04/07/20 21:41 Patient presents to the emergency department for evaluation. She was seen through triage and had laboratory investigations as ordered. She is placed on a quality assurance monitor final. At rest, patient's heart rate has been between 90 and 115. She is oxygenating well. She does not seem to be having any respiratory distress. Her laboratory investigations did reveal an acute on chronic kidney injury. Her chest x-ray fails to show any signs of infiltrate or fluid overload. Currently have ordered that the patient be ambulated, will evaluate heart rate and pulse oxygenation during these processes. Otherwise, I will contact on-call cardiology. Patient is currently stable, we will continue to monitor. 04/07/20 22:[address] Givens, on-call drum worker. He states he was contacted by the patient's drum worker about readmission. It was discussed that the patient would need a nephrology consult, and may be a candidate for possible cardioversion. I will contact Dr. Silva for readmission. 04/07/20 22:30 Dr. Silva will accept the patient. - Vital Signs Vital signs: Temp Pulse Resp BP Pulse Ox 97.6 F 97 21 H 137/100 H 96 04/07/20 18:33 04/07/20 18:33 04/07/20 22:01 04/07/20 22:00 04/07/20 22:01 - Laboratory Result Diagrams: 04/07/20 19:46 04/07/20 19:46 Laboratory results interpreted by me: 04/07/20 04/07/20 04/07/20 19:46 19:46 22:00 Hgb 11.9 L RDW 14.1 H Lymph % (Auto) 9.4 L Seg Neutrophils % 80.4 H BUN 42 H Creatinine 2.21 H Est GFR ( Amer) 25 L Est GFR (MDRD) Non-Af 21 L Glucose 119 H Urine Protein >=500 H - Diagnostic Test Radiology reviewed: Reports reviewed Radiology results interpreted by me: 04/07/20 21:43 Chest X-Ray 04/07/20 19:35 IMPRESSION: 1. No significant interval changes since the prior examination dated 03/27/2020. Chronic changes in the lungs. No acute findings. 2. Cardiomegaly, stable finding. - EKG Interpretation by Me Additional EKG results interpreted by me: 04/07/20 21:43 Atrial fibrillation/flutter with a rate of 118 bpm. Left axis deviation. Right bundle branch block. This bundle branch block is new, was not present on EKG performed on 03/30/2020 Discharge - Discharge Clinical Impression: Heart failure with reduced ejection fraction, HORTENCIA (acute kidney injury), Dyspnea on exertion, Chronic atrial fibrillation Condition: Stable Disposition: ADMITTED INPATIENT Admitting Provider: Ricardo (Hospitalist) Unit Admitted: Telemetry Referrals: ARACELI ROSE MD [Primary Care Provider] - Follow up as needed
[2020-04-07 22:25] LABS: APPEARANCE,URINE CLEAR; BILIRUBIN,URINE NEGATIVE (NEGATIVE); COLOR,URINE YELLOW; GLUCOSE, URINE NEGATIVE (NEGATIVE); KETONES,URINE NEGATIVE (NEGATIVE); LEUKOCYTE ESTERASE,URINE NEGATIVE (NEGATIVE); NITRITE,URINE NEGATIVE (NEGATIVE); PROTEIN,URINE >=500 mg/dL (NEGATIVE); URINE SPECIFIC GRAVITY 1.015; UROBILINOGEN,URINE NEGATIVE mg/dL (<2.0)
--- NOTE | 2020-04-07 23:14 | EKG REPORT ---
SEVERITY:- ABNORMAL ECG - A-FLUTTER W/ PREDOM 2:1 AV BLOCK, A-RATE 254 RIGHT BUNDLE BRANCH BLOCK : Confirmed by: Jaylon Sommer 07-Apr-2020 23:13:49
[2020-04-07] MEDS ORDERED: MAGNESIUM HYDROXIDE SUSP 30 ML UDCUP PO PRN (23:15)
[2020-04-07] MEDS ORDERED: DEXTROSE 5%-NORMAL SALINE 1,000 ML IV PRN (23:15)
[2020-04-07] MEDS ORDERED: ONDANSETRON HCL INJ/PF 4 MG/2 ML SDV IV PRN (23:15)
[2020-04-07] MEDS ORDERED: MAG HYDROX/AL HYDROX/SIMETH SUSP 30 ML UDCUP PO PRN (23:15)
[2020-04-07] MEDS ORDERED: GUAIFENESIN SYRP 200 MG/10 ML UDC PO PRN (23:21)
[2020-04-07] MEDS ORDERED: MORPHINE SULFATE 10 MG/ML INJ IV PRN (23:21)
[2020-04-07] MEDS ORDERED: ACETAMINOPHEN 650 MG SUPP.RECT PR PRN (23:21)
[2020-04-07] MEDS ORDERED: LORAZEPAM INJ 2 MG/1 ML VIAL IV PRN (23:21)
[2020-04-07] MEDS ORDERED: ACETAMINOPHEN 325 MG TABLET PO PRN (23:21)
[2020-04-07] MEDS ORDERED: METOPROLOL TARTRATE PF/INJ 5 MG/5 ML SDV IV PRN (23:21)
[2020-04-08 06:19] LABS: HEMATOCRIT 34.5 % (36.0-47.0); HEMOGLOBIN 11.5 g/dL (12.0-15.5); MEAN CORPUSCULAR HEMOGLOBIN 30.7 pg (27.0-33.4); MEAN CORPUSCULAR HGB CONC 33.4 g/dL (32.0-36.0); MEAN CORPUSCULAR VOLUME 92 fl (80-97); PLATELET COUNT 223 10^3/uL (150-450); RED BLOOD COUNT 3.75 10^6/uL (3.72-5.28); RED CELL DISTRIBUTION WIDTH 14.1 % (11.5-14.0)
[2020-04-08] MEDS: PANTOPRAZOLE SODIUM 40 MG VIAL IV SCH (06:23)
[2020-04-08 06:27] LABS: ANION GAP 9 (5-19); BLOOD UREA NITROGEN 42 mg/dL (7-20); CALCIUM 8.6 mg/dL (8.4-10.2); CARBON DIOXIDE 23 mmol/L (22-30); CHLORIDE 107 mmol/L (98-107); GLUCOSE 114 mg/dL (75-110); POTASSIUM 3.8 mmol/L (3.6-5.0)
--- NOTE | 2020-04-08 06:28 | PDOC H&P ---
History of Present Illness Admission Date/PCP: 04/07/2020 22:42 ARACELI ROSE MD Patient complains of: Dyspnea on exertion History of Present Illness: COLIN JACKSON is a 89 year old female who presents the emergency room from Dr. Ellis's office due to persistent dyspnea on exertion and acute kidney injury noted on her laboratory evaluation. She admits that she was recently hospitalized for atrial fibrillation with a rapid ventricular response and during that hospital course was discovered to have systolic congestive heart failure with an ejection fraction of 30 to 35%. She was discharged to home on metoprolol 100 mg twice daily, Lasix 40 mg daily, amiodarone 400 mg twice daily and Eliquis 5 mg twice daily. Since discharge she has noted severe dyspnea with exertion accompanied by severe upper abdominal pain. Her dyspnea and abdominal pain are relieved by rest. She denies other associated or accompanying signs and symptoms. She has not identified any additional aggravating or ameliorating factors for her exertional dyspnea. In the emergency room she was noted to have an acute kidney injury and was also noted to be unable to tolerate even minimal exertion due to dyspnea. Dr. Givens has been consulted and plans to see the patient in the morning for possible cardioversion. She was subsequently admitted to the hospital for further evaluation and treatment. Past Medical History Cardiac Medical History: Reports: Atrial Fibrillation - Chronic, Congestive Heart Failure - Systolic congestive heart failure, Hyperlipidema, Hypertension Denies: Coronary Artery Disease, DVT, Myocardial Infarction, Peripheral Vascular Disease, Pulmonary Embolism, Heart Murmur Pulmonary Medical History: Reports: Bronchitis, Chronic Obstructive Pulmonary Disease (COPD) - Emphysema, Pneumonia, Sleep Apnea - CPAP Denies: Asthma, Respiratory Failure, Tuberculosis EENT Medical History: Denies: Cataracts, Ears - Hearing aids Neurological Medical History: Denies: Hemorrhagic CVA, Ischemic CVA, Seizures Endocrine Medical History: Reports: Hypothyroidism Denies: Diabetes Mellitus Type 1, Diabetes Mellitus Type 2, Hyperthyroidism Renal/ Medical History: Denies: Chronic Kidney Disease, Nephrolithiasis Malignancy Medical History: Reports: Colorectal Cancer - Colon cancer: status post right colon resection GI Medical History: Reports: Cirrhosis, Diverticulitis, Gastroesophageal Reflux Disease Denies: Crohn's Disease, Hepatitis, Hiatal Hernia, Peptic Ulcer Disease, Ulcerative Colitis Musculoskeltal Medical History: Reports: Arthritis - Rheumatoid arthritis Denies: Fibromyalgia Skin Medical History: Denies: Eczema, Psoriasis Psychiatric Medical History: Reports: Depression Denies: Alcohol Dependency, Substance Abuse, Tobacco Dependency Traumatic Medical History: Reports: None Hematology: Reports: Anemia Denies: Bleeding Tendencies Infectious Medical History: Reports: None Past Surgical History Past Surgical History: Reports: Cholecystectomy, Orthopedic Surgery - Finger surgery with joint replacement, Tonsillectomy, Other - Right hemicolectomy, EGD, colonoscopy with biopsy Social History Information Source: Patient Lives with: Family Smoking Status: Former Smoker Electronic Cigarette use?: No Frequency of Alcohol Use: None Hx Recreational Drug Use: No Drugs: None Hx Prescription Drug Abuse: No - Advance Directive Resuscitation Status: Full Code Surrogate healthcare decision maker:: Gerhard Jackson Jr. Family History Family History: CAD, DM, Other - Congestive heart failure Parental Family History Reviewed: Yes Children Family History Reviewed: No Sibling(s) Family History Reviewed.: Yes Medication/Allergy Home Medications: Levothyroxine Sodium 200 mcg PO Q6AM 01/25/16 Modafinil [Provigil 100 mg Tablet] 200 mg PO DAILY 03/09/16 Apixaban [Eliquis 5 mg Tablet] 5 mg PO Q12 03/19/20 Ergocalciferol (Vitamin D2) [Drisdol 50,000 unit (1.25MG) Capsule] 50,000 unit PO TU@1000 03/19/20 Omeprazole 20 mg PO DAILYP PRN 03/19/20 Zolpidem Tartrate [Zolpidem Tartrate ER] 6.25 mg PO QHS 03/19/20 Colestipol HCl [Colestid 1 gm Tablet] 1 gm PO DAILYP PRN MDD LAST FILLED 08/16/19 FOR 9003/27/20 Telmisartan 80 mg PO DAILY 03/28/20 Amiodarone HCl [Cordarone 200 mg Tablet] 400 mg PO Q12 #80 tablet 03/31/20 Furosemide [Lasix 40 mg Tablet] 40 mg PO DAILY #30 tablet 03/31/20 Metoprolol Succinate [Toprol Xl 50 mg Tab.sr] 100 mg PO Q12 #120 tab.sr.24h 03/31/20 Allergies/Adverse Reactions: Sulfa (Sulfonamide Antibiotics) Allergy (Intermediate, Verified 03/19/20 17:27) FLU-LIKE SYMPTOMS Penicillins Allergy (Mild, Verified 03/19/20 17:27) Hives pneumococcal vaccine Allergy (Verified 03/19/20 17:27) Markus Farris Review of Systems Constitutional: ABSENT: chills, fever(s) Eyes: ABSENT: visual disturbances, other - Eye pain Ears: ABSENT: hearing changes, other - Ear pain Nose, Mouth, and Throat: ABSENT: headache(s), sore throat Cardiovascular: PRESENT: as per HPI, dyspnea on exertion. ABSENT: chest pain, edema, orthropnea, palpitations Respiratory: ABSENT: cough, dyspnea Gastrointestinal: PRESENT: as per HPI, abdominal pain. ABSENT: constipation, diarrhea, nausea, vomiting Genitourinary: ABSENT: dysuria, hematuria Musculoskeletal: ABSENT: back pain, joint swelling, muscle weakness Integumentary: ABSENT: pruritus, rash Neurological: ABSENT: confusion, convulsions, focal weakness, memory loss, syncope Psychiatric: ABSENT: anxiety, depression Endocrine: ABSENT: cold intolerance, heat intolerance Hematologic/Lymphatic: ABSENT: easy bleeding, easy bruising Allergic/Immunologic: ABSENT: seasonal rhinorrhea Physical Exam Vital Signs: Temp Pulse Resp BP Pulse Ox 97.6 F 97 21 H 137/100 H 96 04/07/20 18:33 04/07/20 18:33 04/07/20 22:01 04/07/20 22:00 04/07/20 22:01 Intake & Output 04/05/20 04/06/20 04/07/20 23:59 23:59 23:59 Weight 83.007 kg General appearance: PRESENT: no acute distress, cooperative Head exam: PRESENT: atraumatic, normocephalic Eye exam: PRESENT: conjunctiva pink. ABSENT: conjunctival injection, scleral icterus Ear exam: PRESENT: normal external ear exam. ABSENT: bleeding, drainage Mouth exam: PRESENT: dry mucosa, neck supple Neck exam: ABSENT: thyromegaly, tracheal deviation Respiratory exam: PRESENT: clear to auscultation loida, symmetrical, unlabored Cardiovascular exam: PRESENT: irregular rhythm - Irregularly irregular rate and rhythm. ABSENT: clicks, gallop, rubs Pulses: PRESENT: normal radial pulses, normal dorsalis pedis pul Vascular exam: PRESENT: normal capillary refill. ABSENT: pallor GI/Abdominal exam: PRESENT: normal bowel sounds, soft. ABSENT: tenderness Rectal exam: PRESENT: deferred Extremities exam: ABSENT: joint swelling, pedal edema Musculoskeletal exam: ABSENT: deformity, dislocation Neurological exam: PRESENT: alert, oriented to person, oriented to place, oriented to time, oriented to situation, CN II-XII grossly intact. ABSENT: motor sensory deficit Psychiatric exam: PRESENT: appropriate affect, normal mood Skin exam: PRESENT: dry, intact, warm. ABSENT: jaundice, rash, urticaria Results Laboratory Results: 04/07/20 19:46 04/07/20 19:46 04/07/20 04/07/20 04/07/20 19:46 19:46 22:00 WBC 8.8 RBC 3.94 Hgb 11.9 L Hct 36.1 MCV 92 MCH 30.2 MCHC 33.0 RDW 14.1 H Plt Count 264 Seg Neutrophils % 80.4 H Sodium 138.9 Potassium 3.8 Chloride 105 Carbon Dioxide 26 Anion Gap 8 BUN 42 H Creatinine 2.21 H Est GFR ( Amer) 25 L Glucose 119 H Calcium 8.7 Magnesium 2.0 Total Bilirubin 0.4 AST 24 Alkaline Phosphatase 57 Total Protein 7.6 Albumin 4.3 Urine Color YELLOW Urine Appearance CLEAR Urine pH 5.0 Ur Specific [place] 1.015 Urine Protein >=500 H Urine Glucose (UA) NEGATIVE Urine Ketones NEGATIVE Urine Blood NEGATIVE Urine Nitrite NEGATIVE Ur Leukocyte Esterase NEGATIVE Urine WBC (Auto) 1 Urine RBC (Auto) 1 04/07/20 19:46 Troponin I < 0.012 Impressions: Chest X-Ray 04/07/20 19:35 IMPRESSION: 1. No significant interval changes since the prior examination dated 03/27/2020. Chronic changes in the lungs. No acute findings. 2. Cardiomegaly, stable finding. Assessment and Plan - Diagnosis (1) HORTENCIA (acute kidney injury) Is this a current diagnosis for this admission?: Yes (2) Heart failure with reduced ejection fraction Is this a current diagnosis for this admission?: Yes (3) Dyspnea on exertion Is this a current diagnosis for this admission?: Yes (4) Hypothyroidism Qualifiers: Hypothyroidism type: unspecified Qualified Code(s): E03.9 - Hypothyroidism, unspecified Is this a current diagnosis for this admission?: Yes (5) Rheumatoid arthritis Qualifiers: Rheumatoid arthritis location: unspecified site Rheumatoid factor presence: unspecified presence Qualified Code(s): M06.9 - Rheumatoid arthritis, unspecified Is this a current diagnosis for this admission?: Yes (6) Chronic atrial fibrillation Is this a current diagnosis for this admission?: Yes - Plan Summary Summary: Patient will be admitted to the medical floor in a telemetry bed where she will receive routine supportive and symptomatic cares. Cardiology consultation with Dr. Givens will be obtained. She will receive Ativan 1 mg IV every 4 hours as needed for anxiety or restlessness. She will receive morphine sulfate 2 to 4 mg IV every 2 hours as needed for pain. CBCs, metabolic profiles, magnesium levels and additional laboratory and/or radiographic evaluations will be obtained as appropriate. Patient will be n.p.o. after midnight in anticipation of possible elective cardioversion in the morning. Patient will have her regular medications continued only as judged to be appropriate by Dr. Givens after his evaluation. - Time Time Spent with patient: Less than 15 minutes Medications reviewed and adjusted accordingly: Yes Anticipated Discharge Disposition: Home, Self Care Anticipated Discharge Timeframe: within 72 hours - Inpatient Certification Based on my medical assessment, after consideration of the patient's comorbidities, presenting symptoms, or acuity I expect that the services needed warrant INPATIENT care.: Yes I certify that my determination is in accordance with my understanding of Medicare's requirements for reasonable and necessary INPATIENT services [42 CFR 412.3e].: Yes Medical Necessity: Failure to Improve With Outpatient Therapy, Need Close Monitoring Due to Risk of Patient Decompensation, Need For Continuous Telemetry Monitoring, Risk of Complication if Not Cared For in Hospital
[2020-04-08 06:42] LABS: FREE T3 1.6 pg/mL (2.77-5.27); FREE T4 (FREE THYROXINE) 2.1 ng/dL (0.78-2.19)
[2020-04-08 06:55] LABS: THYROID STIMULATING HORMONE 3.83 uIU/mL (0.47-4.68)
[2020-04-08] MEDS: DOCUSATE SODIUM 100 MG CAPSULE PO SCH ×2 (09:01→17:02)
[2020-04-08] MEDS: APIXABAN 5 MG TABLET PO SCH ×2 (10:42→22:00)
[2020-04-08] MEDS: AMIODARONE HCL 200 MG TABLET PO SCH ×2 (10:43→22:00)
[2020-04-08] MEDS: MODAFINIL 100 MG TABLET PO SCH (10:43)
[2020-04-08] MEDS: METOPROLOL SUCCINATE 50 MG TAB.SR.24H PO SCH ×2 (10:43→22:01)
--- NOTE | 2020-04-08 13:52 | PDOC PROGRESS REPORT ---
Subjective Progress Note for:: 04/08/20 Subjective:: Patient states that she was feeling very fatigued when she got home. She still had some dyspnea on exertion. She saw Dr. Ellis in the office who was not happy that her heart rate was still elevated and ended up referring her back to the hospital especially after doing blood work that revealed HORTENCIA. Currently she still feels fatigued. She states that she feels fine at rest but gets dyspneic when she ambulates still. Ambulated at this morning and heart rate went from 90s to 120s-130s. Reason For Visit: ACUTE KIDNEY INJURY,CHRONIC ATRIAL FIBRILLATION, Physical Exam Vital Signs: Temp Pulse Resp BP Pulse Ox 97.6 F 82 18 131/84 H 97 04/08/20 07:20 04/08/20 07:20 04/08/20 07:20 04/08/20 07:20 04/08/20 07:20 Intake & Output 04/07/20 04/08/20 04/09/20 06:59 06:59 06:59 Weight 84.2 kg General appearance: PRESENT: no acute distress, cooperative Neck exam: PRESENT: JVD Respiratory exam: PRESENT: crackles - Basilar crackles, symmetrical, unlabored. ABSENT: tachypnea, wheezes Cardiovascular exam: PRESENT: irregular rhythm, +S1, +S2. ABSENT: tachycardia GI/Abdominal exam: PRESENT: soft. ABSENT: rebound, rigid, tenderness Neurological exam: PRESENT: alert, awake, oriented to person, oriented to place, oriented to time, oriented to situation Results Laboratory Results: 04/08/20 05:18 04/08/20 05:18 04/07/20 04/07/20 04/07/20 19:46 19:46 22:00 WBC 8.8 RBC 3.94 Hgb 11.9 L Hct 36.1 MCV 92 MCH 30.2 MCHC 33.0 RDW 14.1 H Plt Count 264 Seg Neutrophils % 80.4 H Sodium 138.9 Potassium 3.8 Chloride 105 Carbon Dioxide 26 Anion Gap 8 BUN 42 H Creatinine 2.21 H Est GFR ( Amer) 25 L Glucose 119 H Calcium 8.7 Magnesium 2.0 Total Bilirubin 0.4 AST 24 Alkaline Phosphatase 57 Total Protein 7.6 Albumin 4.3 TSH Free T4 Free T3 pg/mL Urine Color YELLOW Urine Appearance CLEAR Urine pH 5.0 Ur Specific [place] 1.015 Urine Protein >=500 H Urine Glucose (UA) NEGATIVE Urine Ketones NEGATIVE Urine Blood NEGATIVE Urine Nitrite NEGATIVE Ur Leukocyte Esterase NEGATIVE Urine WBC (Auto) 1 Urine RBC (Auto) 1 04/08/20 04/08/20 04/08/20 05:18 05:18 05:18 WBC 9.0 RBC 3.75 Hgb 11.5 L Hct 34.5 L MCV 92 MCH 30.7 MCHC 33.4 RDW 14.1 H Plt Count 223 Seg Neutrophils % Sodium 139.2 Potassium 3.8 Chloride 107 Carbon Dioxide 23 Anion Gap 9 BUN 42 H Creatinine 1.83 H Est GFR ( Amer) 32 L Glucose 114 H Calcium 8.6 Magnesium 2.0 Total Bilirubin AST Alkaline Phosphatase Total Protein Albumin TSH 3.83 Free T4 2.10 Free T3 pg/mL 1.60 L Urine Color Urine Appearance Urine pH Ur Specific [place] Urine Protein Urine Glucose (UA) Urine Ketones Urine Blood Urine Nitrite Ur Leukocyte Esterase Urine WBC (Auto) Urine RBC (Auto) 04/07/20 04/08/20 19:46 05:18 Troponin I < 0.012 NT-Pro-B Natriuret Pep 6170 H Impressions: Chest X-Ray 04/07/20 19:35 IMPRESSION: 1. No significant interval changes since the prior examination dated 03/27/2020. Chronic changes in the lungs. No acute findings. 2. Cardiomegaly, stable finding. Assessment and Plan - Diagnosis (1) HORTENCIA (acute kidney injury) Is this a current diagnosis for this admission?: Yes Plan: Creatinine is 2.2 on admission down to 1.8 today. Her baseline seems to be around 1.0-1.25 She did have mild HORTENCIA on her recent admission to 1.56 on recent admission after aggressive diuresis for acute CHF. I will hold IV fluids for now and give patient a break from diuresis today and recheck creatinine in the morning. Patient still however has crackles and JVD on physical exam and may still need some diuresis but gently. No evidence of uremia. Keep ARB on hold for now (2) Persistent atrial fibrillation with rapid ventricular response Is this a current diagnosis for this admission?: Yes Plan: Still in A. fib. Heart rate is controlled at rest in the 80s but on ambulation, patient's heart rate did bounce back up to 120s to 130s this morning. Cardiology is consulted and will determine if patient needs to be cardioverted at some point during hospitalization. Patient is already on very heavy doses of amiodarone and Toprol-XL which I will continue at this time. Continue Eliquis. Monitor on telemetry (3) Acute systolic heart failure Is this a current diagnosis for this admission?: Yes Plan: Patient's A. fib RVR may also be contributing to patient's continued heart failure. BNP seems to be more elevated than before. Also still having crackles bibasilar and some JVD. She was certainly still needs a more diuresis but I will hold off on diuresis for today and reassess renal function tomorrow. Plan to resume gentle diuresis with Lasix tomorrow. EF last month was determined to be 30 to 35%. Plan had been for patient also have ischemic evaluation as an outpatient. Continue Toprol-XL. Holding losartan [takes telmisartan at home] for now due to renal failure. Cardiology consulted (4) Chronic anticoagulation Is this a current diagnosis for this admission?: Yes Plan: Continue Eliquis. - Time Time Spent with patient: 25-34 minutes Anticipated Discharge Disposition: Home, Self Care Anticipated Discharge Timeframe: within 72 hours
--- NOTE | 2020-04-08 19:22 | PDOC CONSULTATION ---
Consultation Consult Date: 04/08/20 Attending physician:: ROM MORALES Provider Consulted: ALEJANDRO SCHWARZ Consult reason:: Atrial fibrillation History of Present Illness Admission Date/PCP: 04/07/20 22:55 ARACELI ROSE MD Patient complains of: Fatigue, palpitations, dyspnea History of Present Illness: COLIN BOURNE is a 89 year old female With the following active problems 1. COPD 2. Systemic hypertension 3. Chronic renal insufficiency 4. Systemic hypertension 5. Esophageal varices 6. Atrial fibrillation patient was recently discharged from the hospital after being rate controlled for her atrial fibrillation. Amiodarone therapy was initiated and she was maintained on systemic anticoagulation with apixaban. Outpatient follow-up was recommended. She was evaluated by her outpatient communicable disease specialist was felt to be not adequately rate controlled. It was also thought that she had acute kidney injury superimposed on chronic renal insufficiency. Patient also endorsed significant fatigue. These were no symptoms. Past Medical History Cardiac Medical History: Reports: Atrial Fibrillation - Chronic, Congestive Heart Failure - Systolic congestive heart failure, Hyperlipidema, Hypertension Denies: Coronary Artery Disease, DVT, Myocardial Infarction, Peripheral Vascular Disease, Pulmonary Embolism, Heart Murmur Pulmonary Medical History: Reports: Bronchitis, Chronic Obstructive Pulmonary Disease (COPD) - Emphysema, Pneumonia, Sleep Apnea - CPAP Denies: Asthma, Respiratory Failure, Tuberculosis EENT Medical History: Denies: Cataracts, Ears - Hearing aids Neurological Medical History: Denies: Hemorrhagic CVA, Ischemic CVA, Seizures Endocrine Medical History: Reports: Hypothyroidism Denies: Diabetes Mellitus Type 1, Diabetes Mellitus Type 2, Hyperthyroidism Renal/ Medical History: Denies: Chronic Kidney Disease, End Stage Renal Disease, Nephrolithiasis Malignancy Medical History: Reports: Colorectal Cancer - Colon cancer: status post right colon resection Denies: Leukemia, Lung Cancer GI Medical History: Reports: Cirrhosis, Diverticulitis, Gastroesophageal Reflux Disease Denies: Crohn's Disease, Hepatitis, Hiatal Hernia, Peptic Ulcer Disease, Ulcerative Colitis Musculoskeltal Medical History: Reports: Arthritis - Rheumatoid arthritis Denies: Fibromyalgia Skin Medical History: Denies: Eczema, Psoriasis Psychiatric Medical History: Reports: Depression Denies: Alcohol Dependency, Substance Abuse, Tobacco Dependency Traumatic Medical History: Reports: None Hematology: Reports: Anemia Denies: Hemophilia, Sickle Cell Disease, Bleeding Tendencies Infectious Medical History: Reports: None Denies: HIV Past Surgical History Past Surgical History: Reports: Cholecystectomy, Orthopedic Surgery - Finger surgery with joint replacement, Tonsillectomy, Other - Right hemicolectomy, EGD, colonoscopy with biopsy Denies: Amputation, Appendectomy, Section, Colostomy, Coronary Artery Bypass Graft, Gastric Bypass Surgery, Herniorrhaphy, Hysterectomy, Mastectomy, Pacemaker, Tubal Ligation Social History Lives with: Family Smoking Status: Former Smoker Electronic Cigarette use?: No Number of Years Smokin Last Time Smoked: 15 years ago Frequency of Alcohol Use: None Hx Recreational Drug Use: No Drugs: None Hx Prescription Drug Abuse: No - Advance Directive Resuscitation Status: Full Code Family History Family History: CAD, DM, Other - Congestive heart failure Parental Family History Reviewed: No - No familial illnesses Children Family History Reviewed: NA Sibling(s) Family History Reviewed.: NA Medication/Allergy Home Medications: Levothyroxine Sodium 200 mcg PO Q6AM 01/25/16 Modafinil [Provigil 100 mg Tablet] 200 mg PO DAILY 03/09/16 Apixaban [Eliquis 5 mg Tablet] 5 mg PO Q12 03/19/20 Ergocalciferol (Vitamin D2) [Drisdol 50,000 unit (1.25MG) Capsule] 50,000 unit PO TH@1000 03/19/20 Omeprazole 20 mg PO DAILYP PRN 03/19/20 Zolpidem Tartrate [Zolpidem Tartrate ER] 6.25 mg PO QHS 03/19/20 Colestipol HCl [Colestid 1 gm Tablet] 1 gm PO DAILYP PRN MDD LAST FILLED 08/16/19 FOR 90DAY 03/27/20 Telmisartan 80 mg PO DAILY 03/28/20 Amiodarone HCl [Cordarone 200 mg Tablet] 400 mg PO Q12 #80 tablet 03/31/20 Furosemide [Lasix 40 mg Tablet] 40 mg PO DAILY #30 tablet 03/31/20 Metoprolol Succinate [Toprol Xl 50 mg Tab.sr] 100 mg PO Q12 #120 tab.sr.24h 03/31/20 Allergies/Adverse Reactions: Sulfa (Sulfonamide Antibiotics) Allergy (Intermediate, Verified 03/19/20 17:27) FLU-LIKE SYMPTOMS Penicillins Allergy (Mild, Verified 03/19/20 17:27) Hives pneumococcal vaccine Allergy (Verified 03/19/20 17:27) Markus Farris Review of Systems Constitutional: PRESENT: as per HPI Eyes: PRESENT: as per HPI Cardiovascular: PRESENT: dyspnea on exertion, orthropnea, palpitations Respiratory: PRESENT: as per HPI, dyspnea Gastrointestinal: PRESENT: as per HPI Physical Exam Vital Signs: Temp Pulse Resp BP Pulse Ox 97.7 F 108 H 18 124/83 99 04/08/20 15:32 04/08/20 15:32 04/08/20 15:32 04/08/20 15:32 04/08/20 15:32 Intake & Output 04/07/20 04/08/20 04/09/20 06:59 06:59 06:59 Intake Total 1091 Output Total 1000 Balance 91 Weight 84.2 kg General appearance: PRESENT: no acute distress, cooperative, well-developed, well-nourished Head exam: PRESENT: atraumatic, normocephalic Eye exam: PRESENT: EOMI Mouth exam: PRESENT: moist Neck exam: PRESENT: JVD Respiratory exam: PRESENT: crackles, decreased breath sounds, symmetrical, unlabored Cardiovascular exam: PRESENT: irregular rhythm, +S1, +S2 Pulses: PRESENT: normal radial pulses GI/Abdominal exam: PRESENT: distended, soft Rectal exam: PRESENT: deferred Neurological exam: PRESENT: alert, awake, oriented to person, oriented to place Psychiatric exam: PRESENT: appropriate affect Skin exam: PRESENT: dry, intact Results Laboratory Results: 04/08/20 05:18 04/08/20 05:18 04/07/20 04/07/20 04/07/20 19:46 19:46 22:00 WBC 8.8 RBC 3.94 Hgb 11.9 L Hct 36.1 MCV 92 MCH 30.2 MCHC 33.0 RDW 14.1 H Plt Count 264 Seg Neutrophils % 80.4 H Sodium 138.9 Potassium 3.8 Chloride 105 Carbon Dioxide 26 Anion Gap 8 BUN 42 H Creatinine 2.21 H Est GFR ( Amer) 25 L Glucose 119 H Calcium 8.7 Magnesium 2.0 Total Bilirubin 0.4 AST 24 Alkaline Phosphatase 57 Total Protein 7.6 Albumin 4.3 TSH Free T4 Free T3 pg/mL Urine Color YELLOW Urine Appearance CLEAR Urine pH 5.0 Ur Specific [place] 1.015 Urine Protein >=500 H Urine Glucose (UA) NEGATIVE Urine Ketones NEGATIVE Urine Blood NEGATIVE Urine Nitrite NEGATIVE Ur Leukocyte Esterase NEGATIVE Urine WBC (Auto) 1 Urine RBC (Auto) 1 04/08/20 04/08/20 04/08/20 05:18 05:18 05:18 WBC 9.0 RBC 3.75 Hgb 11.5 L Hct 34.5 L MCV 92 MCH 30.7 MCHC 33.4 RDW 14.1 H Plt Count 223 Seg Neutrophils % Sodium 139.2 Potassium 3.8 Chloride 107 Carbon Dioxide 23 Anion Gap 9 BUN 42 H Creatinine 1.83 H Est GFR ( Amer) 32 L Glucose 114 H Calcium 8.6 Magnesium 2.0 Total Bilirubin AST Alkaline Phosphatase Total Protein Albumin TSH 3.83 Free T4 2.10 Free T3 pg/mL 1.60 L Urine Color Urine Appearance Urine pH Ur Specific [place] Urine Protein Urine Glucose (UA) Urine Ketones Urine Blood Urine Nitrite Ur Leukocyte Esterase Urine WBC (Auto) Urine RBC (Auto) 04/07/20 04/08/20 19:46 05:18 Troponin I < 0.012 NT-Pro-B Natriuret Pep 6170 H EKG Comments: Twelve-lead EKG 04/07/2020 Atrial fibrillation with rapid ventricular response, right bundle branch block Twelve-lead EKG 03/30/2020 Atrial fibrillation with ventricular rate 107 bpm Transthoracic echocardiogram 03/28/2020 Left ventricular ejection fraction 30 to 35% Moderate mitral regurgitation, mild AI, moderate to severe TR Impressions: Chest X-Ray 04/07/20 19:35 IMPRESSION: 1. No significant interval changes since the prior examination dated 03/27/2020. Chronic changes in the lungs. No acute findings. 2. Cardiomegaly, stable finding. Assessment & Plan - Diagnosis (1) HORTENCIA (acute kidney injury) Is this a current diagnosis for this admission?: Yes Plan: Acute kidney injury superimposed on chronic renal insufficiency Clinical exam suggest volume overload with elevated JVD and basal rails I suspect that we could challenge her with diuretics to see what happens with the renal function as that may be increased renovascular pressure causing HORTENCIA. (2) Acute systolic heart failure Is this a current diagnosis for this admission?: Yes Plan: Acute decompensated systolic congestive heart failure Echocardiogram that is most recently available suggest the presence of LV dysfunction. Patient was expected to get outpatient evaluation for LV dysf unction At the moment we will try to diurese the patient and get her optimized from a volume standpoint. (3) Chronic atrial fibrillation Is this a current diagnosis for this admission?: Yes Plan: Presently adequately rate controlled except with activity heart rate climbs up a little bit more Rhythm control strategy is being pursued with oral amiodarone in the loading phase followed by maintenance with oral amiodarone. Patient has never been cardioverted Given the patient that the patient is quite symptomatic we will attempt SANDRA cardioversion tomorrow. Patient is not clear as to details about the length of systemic anticoagulation and with multiple hospital stays and worried that she may have missed doses thus it would be reasonable to perform a transesophageal echocardiogram prior to cardioversion Patient was informed of the care plan to proceed with SANDRA and cardioversion. She understands and acknowledges and all questions were answered. Nurse was present in the room with me at the time. - Notes Notes: Plan for SANDRA cardioversion with general anesthesia.
[2020-04-08] MEDS: ZOLPIDEM TARTRATE 5 MG TABLET PO SCH (22:30)
[2020-04-09] MEDS: PANTOPRAZOLE SODIUM 40 MG VIAL IV SCH (05:59)
[2020-04-09] MEDS: LEVOTHYROXINE SODIUM 0.1 MG TABLET PO SCH (06:08)
[2020-04-09] MEDS ORDERED: DEXTROSE 50%-WATER 25 GM/50 ML DISP.SYRIN IV PRN ×2 (08:05)
[2020-04-09] MEDS ORDERED: DEXTROSE 40% GEL 15 GM TUBE PO PRN ×2 (08:05)
[2020-04-09] MEDS ORDERED: GLUCAGON,HUMAN RECOMB 1 MG INJ SUBCUT PRN (08:05)
[2020-04-09] MEDS: DOCUSATE SODIUM 100 MG CAPSULE PO SCH ×2 (09:05→17:04)
[2020-04-09] MEDS: MODAFINIL 100 MG TABLET PO SCH (09:13)
[2020-04-09] MEDS: APIXABAN 5 MG TABLET PO SCH ×2 (09:13→22:15)
[2020-04-09] MEDS: METOPROLOL SUCCINATE 50 MG TAB.SR.24H PO SCH (09:13)
[2020-04-09] MEDS: AMIODARONE HCL 200 MG TABLET PO SCH (09:13)
[2020-04-09 09:41] LABS: ANION GAP 5 (5-19); BLOOD UREA NITROGEN 34 mg/dL (7-20); CALCIUM 8.3 mg/dL (8.4-10.2); CARBON DIOXIDE 25 mmol/L (22-30); CHLORIDE 108 mmol/L (98-107); GLUCOSE 116 mg/dL (75-110); POTASSIUM 4.2 mmol/L (3.6-5.0)
[2020-04-09] MEDS ORDERED: FUROSEMIDE 40 MG TABLET PO ONE (12:36)
--- NOTE | 2020-04-09 12:46 | PDOC PROGRESS REPORT ---
Subjective Progress Note for:: 04/09/20 Subjective:: Patient feels okay today. She does not feel tired or dyspneic until she ambulates. However did not feel that more dyspneic when she ambulated to the bathroom earlier. Heart rate still fast but not experiencing any significant palpitations. Plans with her for SANDRA cardioversion today. Reason For Visit: ACUTE KIDNEY INJURY,CHRONIC ATRIAL FIBRILLATION, Physical Exam Vital Signs: Temp Pulse Resp BP Pulse Ox 97.7 F 118 H 19 128/79 H 99 04/09/20 10:20 04/09/20 10:20 04/09/20 10:20 04/09/20 10:20 04/09/20 10:20 Intake & Output 04/08/20 04/09/20 04/10/20 06:59 06:59 06:59 Intake Total 1291 0 Output Total 1400 200 Balance -109 -200 Weight 84.2 kg 84.2 kg General appearance: PRESENT: no acute distress, cooperative Neck exam: PRESENT: JVD Respiratory exam: PRESENT: crackles, symmetrical, unlabored. ABSENT: tachypnea, wheezes Cardiovascular exam: PRESENT: irregular rhythm, +S1, +S2, tachycardia GI/Abdominal exam: PRESENT: soft. ABSENT: rebound, rigid, tenderness Extremities exam: ABSENT: pedal edema Neurological exam: PRESENT: alert, awake, oriented to person, oriented to place, oriented to time Results Laboratory Results: 04/08/20 05:18 04/09/20 08:45 04/09/20 08:45 Sodium 138.4 Potassium 4.2 Chloride 108 H Carbon Dioxide 25 Anion Gap 5 BUN 34 H Creatinine 1.59 H Est GFR ( Amer) 37 L Glucose 116 H Calcium 8.3 L 04/07/20 04/08/20 19:46 05:18 Troponin I < 0.012 NT-Pro-B Natriuret Pep 6170 H Impressions: Chest X-Ray 04/07/20 19:35 IMPRESSION: 1. No significant interval changes since the prior examination dated 03/27/2020. Chronic changes in the lungs. No acute findings. 2. Cardiomegaly, stable finding. Assessment and Plan - Diagnosis (1) Persistent atrial fibrillation with rapid ventricular response Is this a current diagnosis for this admission?: Yes Plan: Patient is already on very heavy doses of amiodarone and Toprol-XL which I will continue at this time. Continue Eliquis. Patient is still in rapid ventricular response this morning. Cardiology is following patient and has plans for SANDRA cardioversion today. Preop COVID screen is negative. (2) HORTENCIA (acute kidney injury) Is this a current diagnosis for this admission?: Yes Plan: Creatinine has improved to 1.5 today from 2.2 on admission. This is after holding diuresis. Unfortunately, patient still does have quite a bit of crackles in her lungs and will still need further diuresis. I will diurese gently while monitoring renal function closely. (3) Acute systolic heart failure Is this a current diagnosis for this admission?: Yes Plan: Patient's A. fib RVR may also be contributing to patient's continued heart failure. Plan for cardioversion today and hopefully getting the patient into sinus rhythm will help improve atrial kick and ultimately cardiac output. Also still having crackles bibasilar and some JVD and will need further diuresis so I will resume her on Lasix p.o. EF last month was determined to be 30 to 35%. Plan had been for patient also have ischemic evaluation as an outpatient. Continue Toprol-XL. Holding losartan [takes telmisartan at home] for now due to renal failure. Cardiology consulted (4) Chronic anticoagulation Is this a current diagnosis for this admission?: Yes Plan: Continue Eliquis. - Time Time Spent with patient: Less than 15 minutes Anticipated Discharge Disposition: Home, Self Care Anticipated Discharge Timeframe: within 48 hours
[2020-04-09] MEDS ORDERED: PROPOFOL INJ 200 MG/20 ML VIAL IV ONE (13:12)
[2020-04-09] MEDS ORDERED: LIDOCAINE 2% INJ-PF (100 MG/5 ML) SYRINGE ONE (13:12)
[2020-04-09] MEDS ORDERED: DILTIAZEM HCL/D5W 0 MG/0 ML RTUINJ IV ONE (13:25)
[2020-04-09] MEDS ORDERED: ATROPINE SULFATE INJ 1 MG/10 ML DISP.SYRIN IV ONE ×2 (14:13→14:54)
[2020-04-09] MEDS: ATROPINE SULFATE INJ 1 MG/10 ML DISP.SYRIN IV ONE ×2 (14:30→14:55)
--- NOTE | 2020-04-09 14:40 | Progress Note ---
Provider Note Provider Note: DIRECT CURRENT CARDIOVERSION Date : April 05 2020 Procedure: Direct current cardioversion Anesthesia: General anesthesia Indication: Atrial fibrillation Clinical history: 89-year-old lady with atrial fibrillation with rapid ventricular response. She was managed with rate control measures on previous hospital admissions with marginal success. She has LV dysfunction with ejection fraction estimated at 35 to 40%. She had presented to the outpatient cardiology office with acute kidney injury and worsening heart failure symptoms and atrial fibrillation that is somewhat controlled at rest. We decided to proceed with transesophageal echocardiogram which confirmed LV dysfunction with ejection fraction estimated at 35 to 40%. There was no evidence of left atrial appendage thrombus. As we decided to proceed with direct-current cardioversion. PROCEDURE The patient was brought to the holding area fasting and nonsedated state. Informed consent was obtained prior to the procedure. General anesthesia was administered. Please see anesthesia notes for medication details. Patient's presenting rhythm was atrial fibrillation with rapid ventricular response. The patient's EKG and vital signs were monitored throughout. Once the patient was comfortably sedated a single direct current biphasic 200 J shock was administered across defibrillator patches applied in anteroposterior fashion across the chest. This resulted in sinus bradycardia alternating with junctional rhythm with heart rate in the mid 30s to low 40s. Atropine up to 1 mg was administered to increase her heart rate. The patient tolerated the procedure well. Conclusion Successful conversion of atrial fibrillation to sinus rhythm Plan Continue systemic anticoagulation-apixaban 5 mg twice daily without interruption Decrease amiodarone to 200 mg daily Decrease Toprol-XL to 25 mg daily Outpatient follow-up
[2020-04-09] MEDS ORDERED: MICROFIBRILLAR COLLAGEN 1 GM PACK ONE (14:51)
--- NOTE | 2020-04-09 15:09 | XCELERA REPORT ---
Study ID: [id number] Transesophageal Echocardiogram Report Name: COLIN BOURNE V Age: 89 yrs Gender: Female : 1930 Patient Status: Inpatient Patient Location: [address] [place] [address] Study Date: 04/09/2020 11:31 AM History: Atrial fibrillation Reason For Study: A FIB Ordering Physician: ROM MORALES Performed By: Laurel Wilcox Interpretation Summary Ejection Fraction = 35-45%. The right ventricular systolic function is moderately reduced. No thrombus is detected in the left atrial appendage. There is mild to moderate mitral regurgitation. There is mild to moderate tricuspid regurgitation. There is no pericardial effusion. Procedure A complete two-dimensional transesophageal echocardiogram was performed (2D, spectral and color flow Doppler). Informed consent for Transesophageal Echocardiogram, and use of a contrast agent as needed, was obtained prior to the procedure. The patient was brought to the OR in a fasting state. An intravenous line was placed. A topical anesthetic agent was used for oropharangeal anesthesia. A bite block was inserted. IV conscious sedation was administered using Per anesthesia. The patient's vital signs, including blood pressure, heart rate, pulse oximetry and cardiac rhythm were monitored thoughout the procedure. The transesophageal probe was passed without difficulty. The usual views were obtained; basal, mid-esophageal, transgastric and aortic views. The patient tolerated the procedure well without evidence of orophangeal or esophageal trauma. Subsequent to all the images being obtained the probe was removed with out trauma. Left Ventricle The left ventricle is mildly dilated. There is normal left ventricular wall thickness. Left ventricular systolic function is mild to moderately reduced. Ejection Fraction = 35-45%. There is mild to moderate global hypokinesis of the left ventricle. Right Ventricle The right ventricle is mild to moderately dilated. The right ventricular systolic function is moderately reduced. Atria The interatrial septum is intact with no evidence for an atrial septal defect. The left atrium is mildly dilated. No thrombus is detected in the left atrial appendage. The right atrium is mildly dilated. Mitral Valve The mitral valve is grossly normal. There is mild to moderate mitral regurgitation. Tricuspid Valve The tricuspid valve is not well visualized, but is grossly normal. There is mild to moderate tricuspid regurgitation. Aortic Valve The aortic valve is trileaflet. The aortic valve opens well. No hemodynamically significant valvular aortic stenosis. Trace aortic regurgitation. Pulmonic Valve The pulmonic valve is not well visualized. Arteries The aortic root is not well visualized. Pericardium There is no pericardial effusion. : ROM MORALES Anil
[2020-04-09] MEDS ORDERED: ATROPINE SULFATE INJ 1 MG/1 ML VIAL IV ONE (15:30)
[2020-04-09] MEDS ORDERED: GLUCAGON,HUMAN RECOMB 1 MG INJ IV ONE (19:00)
[2020-04-09] MEDS: ZOLPIDEM TARTRATE 5 MG TABLET PO SCH (22:15)
[2020-04-10] MEDS: LEVOTHYROXINE SODIUM 0.1 MG TABLET PO SCH (05:23)
[2020-04-10] MEDS: PANTOPRAZOLE SODIUM 40 MG VIAL IV SCH (05:23)
[2020-04-10] MEDS: DOCUSATE SODIUM 100 MG CAPSULE PO SCH (09:58)
[2020-04-10] MEDS ORDERED: METOPROLOL SUCCINATE 50 MG TAB.SR.24H PO SCH (10:00)
[2020-04-10] MEDS ORDERED: FUROSEMIDE 40 MG TABLET PO SCH (10:00)
[2020-04-10] MEDS ORDERED: AMIODARONE HCL 200 MG TABLET PO SCH (10:00)
[2020-04-10] MEDS ORDERED: ERGOCALCIFEROL (VITAMIN D2) 50000 UNIT (1.25 MG) CAPSULE PO SCH (10:00)
[2020-04-10] MEDS: MODAFINIL 100 MG TABLET PO SCH (10:01)
[2020-04-10] MEDS: APIXABAN 5 MG TABLET PO SCH ×2 (10:01→21:16)
[2020-04-10 10:32] LABS: ANION GAP 10 (5-19); BLOOD UREA NITROGEN 48 mg/dL (7-20); CALCIUM 8.5 mg/dL (8.4-10.2); CARBON DIOXIDE 20 mmol/L (22-30); CHLORIDE 108 mmol/L (98-107); GLUCOSE 128 mg/dL (75-110); POTASSIUM 4.3 mmol/L (3.6-5.0)
[2020-04-10] MEDS ORDERED: NORMAL SALINE 1000 ML 500 ML IV ONE (12:56)
--- NOTE | 2020-04-10 13:15 | PDOC PROGRESS REPORT ---
Subjective Progress Note for:: 04/10/20 Subjective:: Patient goes very loopy, dizzy, disorganized and disoriented as well as dysarthric after the cardioversion yesterday. Likely was secondary to the anesthetics which she received propofol and lidocaine. She converted to sinus bradycardia. She did receive some atropine and IV glucagon yesterday. This morning, patient feels a lot better and is back to her baseline mental status, dysarthria has resolved and disorientation has resolved. It seems the propofol has worn off at this time. She states that she feels a lot better in terms of her breathing and fatigue and does not feel as dyspneic/fatigued on exertion as she has been feeling prior to the cardioversion. The dizziness has resolved. She is also happy that she does not feel the palpitations anymore. Reason For Visit: ACUTE KIDNEY INJURY,CHRONIC ATRIAL FIBRILLATION, Physical Exam Vital Signs: Temp Pulse Resp BP Pulse Ox 97.6 F 44 L 16 141/56 H 98 04/10/20 11:47 04/10/20 11:47 04/10/20 11:47 04/10/20 11:47 04/10/20 11:47 Intake & Output 04/09/20 04/10/20 04/11/20 06:59 06:59 06:59 Intake Total 1291 300 Output Total 1400 300 Balance -109 0 Weight 84.2 kg 84.2 kg General appearance: PRESENT: no acute distress, cooperative Neck exam: PRESENT: JVD - Mild Respiratory exam: PRESENT: crackles - Bibasilar, symmetrical, unlabored. ABSENT: tachypnea Cardiovascular exam: PRESENT: bradycardia, +S1, +S2. ABSENT: irregular rhythm, tachycardia GI/Abdominal exam: PRESENT: soft. ABSENT: rebound, rigid, tenderness Neurological exam: PRESENT: alert, awake, oriented to person, oriented to place, oriented to time, oriented to situation, CN II-XII grossly intact. ABSENT: ataxia, motor sensory deficit, aphasic Results Laboratory Results: 04/08/20 05:18 04/10/20 09:29 04/10/20 09:29 Sodium 138.4 Potassium 4.3 Chloride 108 H Carbon Dioxide 20 L Anion Gap 10 BUN 48 H Creatinine 2.62 H Est GFR ( Amer) 21 L Glucose 128 H Calcium 8.5 04/07/20 04/08/20 19:46 05:18 Troponin I < 0.012 NT-Pro-B Natriuret Pep 6170 H Impressions: Chest X-Ray 04/07/20 19:35 IMPRESSION: 1. No significant interval changes since the prior examination dated 03/27/2020. Chronic changes in the lungs. No acute findings. 2. Cardiomegaly, stable finding. Assessment and Plan - Diagnosis (1) Persistent atrial fibrillation with rapid ventricular response Is this a current diagnosis for this admission?: Yes Plan: Patient was taken for SANDRA cardioversion on 04/09/2020 after which she converted into sinus bradycardia initially in the 30s then sustaining in the 40s. The sinus bradycardia is likely secondary to residual effect from her heavy dose of amiodarone and Toprol-XL that she had been on to control her rapid A. fib. Had only mild response to atropine and glucagon. Amiodarone has a relatively long half-life and as such we will have residual effect for a few several days. However, patient is asymptomatic in terms of her sinus bradycardia. Discussed with Dr. Fer Givens who would like patient to remain off amiodarone and Toprol-XL at the time of discharge as well. Continue Eliquis Monitor on telemetry (2) HORTENCIA (acute kidney injury) Is this a current diagnosis for this admission?: Yes Plan: Baseline creatinine seems to be 1.2-1.4. On admission, creatinine was 2.2 but seems to have down trended after holding diuresis to 1.5. Yesterday, it seems patient was hypotensive secondary to bra dycardia for about 30 minutes to 1 hour following the procedure. This morning, creatinine is back up to 2.6. Patient did not receive any diuresis yesterday. Suspect this may be prerenal secondary to hypotensive episode yesterday. We will stop Lasix and give IV fluids. Nephrology consulted. Will check renal ultrasound. (3) Acute systolic heart failure Is this a current diagnosis for this admission?: Yes Plan: Patient's A. fib RVR may also be contributing to patient's continued heart failure. She feels a lot better in terms of her dyspnea on exertion following cardioversion into sinus rhythm. However still has some bibasilar crackles. EF last month was determined to be 30 to 35%. Holding losartan [takes telmisartan at home] and Lasix for now due to renal failure. Holding Toprol-XL due to bradycardia. Hopefully, her heart failure should improve now that she is back in sinus rhythm and atrial kick has been restored. She will follow-up with cardiology outpatient for ischemic work-up as planned on prior visit. (4) Chronic anticoagulation Is this a current diagnosis for this admission?: Yes Plan: Continue Eliquis. - Time Time Spent with patient: Less than 15 minutes Anticipated Discharge Disposition: Home, Self Care Anticipated Discharge Timeframe: within 48 hours
--- NOTE | 2020-04-10 15:19 | EKG REPORT ---
SEVERITY:- ABNORMAL ECG - SINUS BRADYCARDIA LEFT AXIS DEVIATION LOW VOLTAGE IN FRONTAL LEADS BORDERLINE R WAVE PROGRESSION, ANTERIOR LEADS NONSPECIFIC T ABNORMALITIES, ANTERIOR LEADS : Confirmed by: Fer Givens MD 10-Apr-2020 15:19:06
[2020-04-10] MEDS: NORMAL SALINE 1000 ML 1,000 ML IV PRN (16:28)
--- NOTE | 2020-04-10 16:39 | PDOC PROGRESS REPORT ---
Subjective Progress Note for:: 04/10/20 Subjective:: Asymptomatic sinus bradycardia post cardioversion. Patient received intravenous atropine as well as glucagon pushes with mild improvement in heart rate. We are holding back on amiodarone as well as beta-blockers due to persistent bradycardia. Patient however is asymptomatic, mentating well and perfusing well with normal blood pressure. Symptomatically also she feels quite better with relief of dyspnea dizziness and palpitations. Telemetry this time shows sinus bradycardia at 52 bpm. Reason For Visit: ACUTE KIDNEY INJURY,CHRONIC ATRIAL FIBRILLATION, Physical Exam Vital Signs: Temp Pulse Resp BP Pulse Ox 97.6 F 44 L 16 141/56 H 98 04/10/20 11:47 04/10/20 11:47 04/10/20 11:47 04/10/20 11:47 04/10/20 11:47 Intake & Output 04/09/20 04/10/20 04/11/20 06:59 06:59 06:59 Intake Total 1291 300 240 Output Total 1400 300 Balance -109 0 240 Weight 84.2 kg 84.2 kg General appearance: PRESENT: no acute distress, well-developed, well-nourished Head exam: PRESENT: atraumatic, normocephalic Eye exam: PRESENT: conjunctiva pink, EOMI Mouth exam: PRESENT: moist Respiratory exam: PRESENT: crackles, decreased breath sounds, symmetrical, unlabored Cardiovascular exam: PRESENT: RRR, +S1, +S2 Pulses: PRESENT: normal radial pulses GI/Abdominal exam: PRESENT: soft Rectal exam: PRESENT: deferred Neurological exam: PRESENT: alert, awake, oriented to person, oriented to place, oriented to time, oriented to situation Psychiatric exam: PRESENT: appropriate affect Skin exam: PRESENT: dry, intact, normal color Results Laboratory Results: 04/08/20 05:18 04/10/20 09:29 04/10/20 09:29 Sodium 138.4 Potassium 4.3 Chloride 108 H Carbon Dioxide 20 L Anion Gap 10 BUN 48 H Creatinine 2.62 H Est GFR ( Amer) 21 L Glucose 128 H Calcium 8.5 04/07/20 04/08/20 19:46 05:18 Troponin I < 0.012 NT-Pro-B Natriuret Pep 6170 H EKG Comments: Telemetry shows sinus bradycardia 52 bpm. Impressions: Chest X-Ray 08/10/20 19:35 IMPRESSION: 1. No significant interval changes since the prior examination dated 03/27/2020. Chronic changes in the lungs. No acute findings. 2. Cardiomegaly, stable finding. Assessment & Plan - Diagnosis (1) HORTENCIA (acute kidney injury) Is this a current diagnosis for this admission?: Yes Plan: Nephrology consultation has been requested Patient had worsening renal function probably secondary to ATN due to transient hypotension post cardioversion when she was bradycardic and under the effect of sedation. This is likely going to be transient We will try to avoid nephrotoxic agents. (2) Acute systolic heart failure Is this a current diagnosis for this admission?: Yes Plan: Congestive heart failure symptoms are much improved. Due to HORTENCIA patient is receiving gentle hydration. (3) Chronic atrial fibrillation Is this a current diagnosis for this admission?: Yes Plan: Status post cardioversion Maintaining sinus rhythm however quite bradycardic Would hold off on amiodarone as well as beta-jose at the moment Based on heart rate trend in the next 24 hours we can decide on resuming a miodarone probably at the lower maintenance dose of 200 mg daily together with Toprol-XL 25 mg to be given in the evening. This is assuming that the heart rate increases above 60 bpm. Otherwise at the time of discharge she should be discharged on maintenance oral amiodarone at 200 mg daily only. Continue systemic anticoagulation without interruption given cardioversion and atrial fibrillation.
--- NOTE | 2020-04-10 18:42 | RADIOLOGY REPORT (SQ) ---
EXAM DESCRIPTION: U/S RETROPERITON LTD IMAGES COMPLETED DATE/TIME: 04/10/2020 6:26 pm REASON FOR STUDY: RENAL FAILURE COMPARISON: None. TECHNIQUE: Dynamic and static grayscale images acquired of the kidneys and bladder and recorded on P ACS. Additional selected color Doppler and spectral images recorded. LIMITATIONS: None. FINDINGS: RIGHT KIDNEY: Normal size. Normal echogenicity. Cysts measuring 2.0 cm and 3.3 cm. N o solid or suspicious masses. No hydronephrosis. No calcifications. LEFT KIDNEY: Normal size. Normal echogenicity. Cysts measuring 1.1 cm and 3.4 cm. No solid or s uspicious masses. No hydronephrosis. No calcifications. BLADDER: No masses. OTHER FINDINGS: No other significant finding. IMPRESSION: INCIDENTAL RENAL CYSTS. OTHERWISE UNREMARKABLE RENAL AND BLADDER ULTRASOUND. TECHNICAL DOCUMENTATION: JOB ID: [id number] 2010 [employer]- All Rights Reserved Reading location - IP/workstation name: [email or web address]
[2020-04-10] MEDS: ZOLPIDEM TARTRATE 5 MG TABLET PO SCH (21:42)
[2020-04-11] MEDS: LEVOTHYROXINE SODIUM 0.1 MG TABLET PO SCH (05:39)
[2020-04-11 06:08] LABS: ANION GAP 8 (5-19); BLOOD UREA NITROGEN 56 mg/dL (7-20); CALCIUM 8.5 mg/dL (8.4-10.2); CARBON DIOXIDE 21 mmol/L (22-30); CHLORIDE 110 mmol/L (98-107); GLUCOSE 103 mg/dL (75-110); POTASSIUM 4.3 mmol/L (3.6-5.0)
[2020-04-11] MEDS: NORMAL SALINE 1000 ML 1,000 ML IV PRN ×2 (09:15→18:04)
[2020-04-11] MEDS: MODAFINIL 100 MG TABLET PO SCH (09:16)
[2020-04-11] MEDS: APIXABAN 5 MG TABLET PO SCH ×2 (09:16→21:11)
--- NOTE | 2020-04-11 10:14 | PDOC CONSULTATION ---
Consultation Consult Date: 04/11/20 Provider Consulted: Oscar KWON Consult reason:: Acute on [facility] History of Present Illness Admission Date/PCP: 04/07/20 22:55 ARACELI ROSE MD History of Present Illness: COLIN BOURNE is a 89 year old female with a past medical history that is significant for hypertension, recent new onset atrial fibrillation and discharged earlier this month on amiodarone and anticoagulation, Systolic CHF with LVEF of approx 35- 45%, CKD 3 with base creatinine of around 1.1- 1.3, longstanding rheumatoid arthritis for which she was on methotrexate for 3 to 4 years and then taken off it when she was discovered to have cirrhosis of the liver, cirrhosis of the liver of unknown etiology as per patient but she endorses a history of fatty liver as well, sleep apnea, history of cancer of the colon for which she underwent right hemicolectomy followed by possible chemotherapy, hypothyroidism, diverticulosis with history of diverticulitis was admitted with history of progressive shortness of breath with an effort tolerance of approximately 5 to 10 yards and extreme fatigue of 3-4 days duration and vague upper abdominal pains which is now not present. She had just been discharged earlier this month when she was admitted for covid negative negative pneumonia and was found to have also new onset atrial fibrillation. She was treated with antibiotics and then initiated on an amiodarone and anticoagulation and was rate controlled and discharged to follow with qa software tester. Apparently she developed her current symptoms on for her admission but was also seen by her qa software tester who also noted the fact that she was again in rapid A. fib along with labs showing HORTENCIA on top of her CKD stage III. Baseline kidney disease is around been around 1.1-1.3. She denies any history of chest pains. No history of gi bleeds. However she has noted some pedal edema. Post current admission she underwent a SANDRA and underwent cardioversion. There was a brief element of hypotension. She was also put on IV Lasix.Admission creatinine was around 2.2 and now is 2.7. Lasix has been held and she has been begun on gentle IV hydration. Currently she says she feels a whole lot better she is able to walk around to the bathroom without shortness of breath or extreme fatigue. She wonders when she can go home. Past Medical History Cardiac Medical History: Reports: Atrial Fibrillation - Chronic, Hyperlipidemia, Hypertension-primary Denies: Coronary Artery Disease, DVT, Heart Murmur, Myocardial Infarction, Peripheral Vascular Disease, Pulmonary Embolism Pulmonary Medical History: Reports: Bronchitis, Chronic Obstructive Pulmonary Disease (COPD) - Emphysema, Pneumonia, Sleep Apnea - CPAP Denies: Asthma, Respiratory Failure, Tuberculosis EENT Medical History: Denies: Cataracts, Ears - Hearing aids Neurological Medical History: Denies: Hemorrhagic CVA, Ischemic CVA, Seizures Endocrine Medical History: Reports: Hypothyroidism Denies: Diabetes Mellitus Type 1, Diabetes Mellitus Type 2, Hyperthyroidism Complications of Diabetes: Reports: None Renal/ Medical History: Reports: Chronic Kidney Disease Stage III Denies: Benign Prostatic Hyperplasia, End Stage Renal Disease, Hematuria, Nephrolithiasis Malignancy Medical History: Reports: Colorectal Cancer - Colon cancer: status post right colon resection Denies: Leukemia, Lung Cancer GI Medical History: Reports: Cirrhosis, Diverticulitis, Gastroesophageal Reflux Disease Denies: Crohn's Disease, Hepatitis, Hiatal Hernia, Peptic Ulcer Disease, Ulcerative Colitis Musculoskeltal Medical History: Reports: Arthritis - Rheumatoid arthritis, Rheumatoid Arthritis Denies: Fibromyalgia, Systemic Lupus Erythematosus Skin Medical History: Denies: Eczema, Psoriasis Psychiatric Medical History: Reports: Depression Denies: Alcohol Dependency, Substance Abuse, Tobacco Dependency Traumatic Medical History: Reports: None Infectious Medical History: Reports: None Denies: HIV Past Surgical History Past Surgical History: Reports: Cholecystectomy, Orthopedic Surgery - Finger surgery with joint replacement, Tonsillectomy, Other - Right hemicolectomy, EGD, colonoscopy with biopsy Denies: Appendectomy, Section, Colostomy, Coronary Artery Bypass Graft, Gastric Bypass Surgery, Herniorrhaphy, Hysterectomy, Mastectomy, Pacemaker, Tubal Ligation Social History Lives with: Family Smoking Status: Former Smoker Electronic Cigarette use?: No Number of Years Smokin Last Time Smoked: 15 years ago Frequency of Alcohol Use: None Hx Recreational Drug Use: No Drugs: None Hx Prescription Drug Abuse: No - Advance Directive Resuscitation Status: Full Code Family History Parental Family History Reviewed: Yes - Negative for ESRD Children Family History Reviewed: No Sibling(s) Family History Reviewed.: No Medication/Allergy Home Medications: Levothyroxine Sodium 200 mcg PO Q6AM 01/25/16 Modafinil [Provigil 100 mg Tablet] 200 mg PO DAILY 03/09/16 Apixaban [Eliquis 5 mg Tablet] 5 mg PO Q12 03/19/20 Ergocalciferol (Vitamin D2) [Drisdol 50,000 unit (1.25MG) Capsule] 50,000 unit PO TH@1000 03/19/20 Omeprazole 20 mg PO DAILYP PRN 03/19/20 Zolpidem Tartrate [Zolpidem Tartrate ER] 6.25 mg PO QHS 03/19/20 Colestipol HCl [Colestid 1 gm Tablet] 1 gm PO DAILYP PRN MDD LAST FILLED 08/16/19 FOR 90DAY 03/27/20 Telmisartan 80 mg PO DAILY 03/28/20 Amiodarone HCl [Cordarone 200 mg Tablet] 400 mg PO Q12 #80 tablet 03/31/20 Furosemide [Lasix 40 mg Tablet] 40 mg PO DAILY #30 tablet 03/31/20 Metoprolol Succinate [Toprol Xl 50 mg Tab.sr] 100 mg PO Q12 #120 tab.sr.24h 03/31/20 Allergies/Adverse Reactions: Sulfa (Sulfonamide Antibiotics) Allergy (Intermediate, Verified 03/19/20 17:27) FLU-LIKE SYMPTOMS Penicillins Allergy (Mild, Verified 03/19/20 17:27) Hives pneumococcal vaccine Allergy (Verified 03/19/20 17:27) Arm Marcs Review of Systems Constitutional: PRESENT: fatigue, weakness. ABSENT: anorexia, chills, fever(s), headache(s), night sweats Nose, Mouth, and Throat: ABSENT: mouth pain, sore throat Cardiovascular: PRESENT: dyspnea on exertion, edema. ABSENT: chest pain, orthropnea, palpitations Respiratory: PRESENT: cough, dyspnea. ABSENT: hemoptysis Gastrointestinal: PRESENT: abdominal pain, bloating. ABSENT: coffee ground emesis, diarrhea, dysphagia, heartburn, hematemesis, hematochezia, nausea, vomiting Genitourinary: ABSENT: difficulty urinating, dysuria, hematuria Musculoskeletal: ABSENT: back pain, deformity, joint swelling Integumentary: ABSENT: erythema, lesions, pruritus, rash Neurological: ABSENT: abnormal speech, confusion, focal weakness, frequent falls, lack of coordination Hematologic/Lymphatic: ABSENT: easy bruising, lymphadenopathy Physical Exam Vital Signs: Temp Pulse Resp BP Pulse Ox 97.5 F 45 L 19 156/62 H 98 04/11/20 08:14 04/11/20 08:14 04/11/20 08:14 04/11/20 08:14 04/11/20 08:14 Intake & Output 04/10/20 04/11/20 04/12/20 06:59 06:59 06:59 Intake Total 300 2460 Output Total 300 Balance 0 2460 Weight 84.2 kg 85.8 kg General appearance: PRESENT: no acute distress Eye exam: PRESENT: EOMI, PERRLA. ABSENT: scleral icterus Mouth exam: PRESENT: neck supple. ABSENT: moist Neck exam: ABSENT: lymphadenopathy, meningismus, tenderness, thyromegaly, tracheal deviation Respiratory exam: PRESENT: clear to auscultation loida, decreased breath sounds. ABSENT: crackles Cardiovascular exam: PRESENT: +S1, +S2 GI/Abdominal exam: PRESENT: normal bowel sounds, soft. ABSENT: organomegaly, tenderness Extremities exam: ABSENT: pedal edema Neurological exam: PRESENT: alert, awake, oriented to person, oriented to place Psychiatric exam: PRESENT: appropriate affect Focused psych exam: ABSENT: delusional, pressured speech Skin exam: PRESENT: dry. ABSENT: erythema, jaundice, mottled, rash Results Laboratory Results: 04/08/20 05:18 04/11/20 05:36 04/10/20 04/11/20 04/11/20 09:29 05:36 05:36 Sodium 138.4 138.6 Potassium 4.3 4.3 Chloride 108 H 110 H Carbon Dioxide 20 L 21 L Anion Gap 10 8 BUN 48 H 56 H Creatinine 2.62 H 2.72 H Est GFR ( Amer) 21 L 20 L Glucose 128 H 103 Calcium 8.5 8.5 Magnesium 2.1 PTH Intact 140.8 H 04/07/20 04/08/20 19:46 05:18 Troponin I < 0.012 NT-Pro-B Natriuret Pep 6170 H Impressions: Chest X-Ray 04/07/20 19:35 IMPRESSION: 1. No significant interval changes since the prior examination dated 03/27/2020. Chronic changes in the lungs. No acute findings. 2. Cardiomegaly, stable finding. Renal Ultrasound 04/10/20 00:00 IMPRESSION: INCIDENTAL RENAL CYSTS. OTHERWISE UNREMARKABLE RENAL AND BLADDER ULTRASOUND. Assessment & Plan - Diagnosis (1) HORTENCIA (acute kidney injury) Is this a current diagnosis for this admission?: Yes Plan: Patient has acute on chronic kidney disease. Unsure of the etiology of her CKD but note that she has proteinuria in her urine analysis and might need to be worked up post discharge. I believe current acute insult most likely was initially in the face of rapid A. fib with a decompensated heart failure which then got exaggerated by/during cardioversion and episode of hypotension. Also adding further element of insult could have been over diuresing her. However it looks like her creatinine is stabilizing and I would continue with gentle rehydration. Renal ultrasound was reviewed that does not show any obstructive uropathy. (2) Acute systolic heart failure Is this a current diagnosis for this admission?: Yes Plan: Acute on chronic systolic heart failure because of decompensated atrial fibrillation. Currently seems to be compensated as her heart rate is controlled. Further management as per cardiology. (3) Chronic atrial fibrillation Is this a current diagnosis for this admission?: Yes Plan: With recent disintegration of a controlled A. fib and presenting with rapid A. f ib/CHF. She is status post SANDRA and cardioversion and rate controlled in sinus. (4) Hypertension Qualifiers: Hypertension type: essential hypertension Qualified Code(s): I10 - Essential (primary) hypertension Plan: Fairly well controlled. Monitor. (5) Rheumatoid arthritis Qualifiers: Rheumatoid arthritis location: unspecified site Rheumatoid factor presence: unspecified presence Qualified Code(s): M06.9 - Rheumatoid arthritis, unspecified Is this a current diagnosis for this admission?: Yes Plan: She was on Plaquenil prior to admission but has been taken off it because of interaction with amiodarone. Patient following with a glued wood tester. Presently no signs of active disease. (6) Liver cirrhosis Plan: Apparently a history of underlying fatty liver/VERA. She says she has been worked up for that by her primary care. She wonders if methotrexate had a role in worsening her liver disease. Would be cautious in usage of amiodarone in the background of liver cirrhosis. (7) Proteinuria Plan: Recommend outpatient evaluation post discharge.
[2020-04-11 12:23] LABS: APPEARANCE,URINE SLIGHTLY-CLOUDY; BILIRUBIN,URINE NEGATIVE (NEGATIVE); COLOR,URINE YELLOW; GLUCOSE, URINE NEGATIVE (NEGATIVE); KETONES,URINE NEGATIVE (NEGATIVE); LEUKOCYTE ESTERASE,URINE TRACE (NEGATIVE); NITRITE,URINE NEGATIVE (NEGATIVE); PROTEIN,URINE 100 mg/dL (NEGATIVE); URINE SPECIFIC GRAVITY 1.016; UROBILINOGEN,URINE NEGATIVE mg/dL (<2.0)
[2020-04-11] MEDS ORDERED: AMLODIPINE BESYLATE 5 MG TABLET PO SCH (13:30)
--- NOTE | 2020-04-11 13:44 | PDOC PROGRESS REPORT ---
Subjective Progress Note for:: 04/11/20 Subjective:: Patient continues to feel well. Denies any shortness of breath or chest pain. Denies any dizziness. Reason For Visit: ACUTE KIDNEY INJURY,CHRONIC ATRIAL FIBRILLATION, Physical Exam Vital Signs: Temp Pulse Resp BP Pulse Ox 97.3 F 50 L 19 164/70 H 97 04/11/20 11:35 04/11/20 13:07 04/11/20 11:35 04/11/20 13:07 04/11/20 11:35 Intake & Output 04/10/20 04/11/20 04/12/20 06:59 06:59 06:59 Intake Total 300 2460 710 Output Total 300 Balance 0 2460 710 Weight 84.2 kg 85.8 kg 79.4 kg General appearance: PRESENT: no acute distress, cooperative Neck exam: ABSENT: JVD Respiratory exam: PRESENT: crackles - Mild bibasilar, symmetrical, unlabored. ABSENT: tachypnea Cardiovascular exam: PRESENT: bradycardia, +S1, +S2. ABSENT: irregular rhythm, tachycardia Extremities exam: ABSENT: pedal edema Neurological exam: PRESENT: alert, awake Results Laboratory Results: 04/08/20 05:18 04/11/20 05:36 04/11/20 04/11/20 04/11/20 05:36 05:36 12:02 Sodium 138.6 Potassium 4.3 Chloride 110 H Carbon Dioxide 21 L Anion Gap 8 BUN 56 H Creatinine 2.72 H Est GFR ( Amer) 20 L Glucose 103 Calcium 8.5 Magnesium 2.1 PTH Intact 140.8 H Urine Color YELLOW Urine Appearance SLIGHTLY-CLOUDY Urine pH 5.0 Ur Specific Graff 1.016 Urine Protein 100 H Urine Glucose (UA) NEGATIVE Urine Ketones NEGATIVE Urine Blood SMALL H Urine Nitrite NEGATIVE Ur Leukocyte Esterase TRACE H Urine WBC (Auto) 13 Urine RBC (Auto) 3 04/07/20 04/08/20 19:46 05:18 Troponin I < 0.012 NT-Pro-B Natriuret Pep 6170 H Impressions: Chest X-Ray 04/07/20 19:35 IMPRESSION: 1. No significant interval changes since the prior examination dated 03/27/2020. Chronic changes in the lungs. No acute findings. 2. Cardiomegaly, stable finding. Renal Ultrasound 04/10/20 00:00 IMPRESSION: INCIDENTAL RENAL CYSTS. OTHERWISE UNREMARKABLE RENAL AND BLADDER ULTRASOUND. Assessment and Plan - Diagnosis (1) Persistent atrial fibrillation with rapid ventricular response Is this a current diagnosis for this admission?: Yes Plan: Patient was taken for SANDRA cardioversion on 04/09/2020 after which she converted into sinus bradycardia Patient still in sinus bradycardia in the 40s today. Likely lingering effect of amiodarone load dosing that she was on since last hospitalization. Continue to monitor on telemetry. Continue Eliquis. Dr. Givens recommending resumption of amiodarone 200 mg daily once heart rate improves over 50s persistently. (2) HORTENCIA (acute kidney injury) Is this a current diagnosis for this admission?: Yes Plan: Baseline creatinine seems to be 1.2-1.4. Acute event seems to have been secondary to hypertensive episode during cardioversion after receiving propofol. Will give gentle IV fluid hydration. Nephrology is following. Monitor renal function and urine output. (3) Acute systolic heart failure Is this a current diagnosis for this admission?: Yes Plan: EF 35%. Seems to have improved following cardioversion. Hold Lasix for now given HORTENCIA. Holding losartan for now given HORTENCIA. (4) Chronic anticoagulation Is this a current diagnosis for this admission?: Yes Plan: Continue Eliquis. (5) Hypertension Qualifiers: Hypertension type: essential hypertension Qualified Code(s): I10 - Essential (primary) hypertension Is this a current diagnosis for this admission?: No Plan: Holding losartan [on telmisartan at home] due to acute renal failure. Ultimately will need to be restarted on ARB at some point given proteinuria. In the meantime we will treat hypertension with imdur - Time Time Spent with patient: Less than 15 minutes Anticipated Discharge Disposition: Home, Self Care Anticipated Discharge Timeframe: within 48 hours
[2020-04-11] MEDS ORDERED: ISOSORBIDE MONONITRATE 30 MG TAB.ER.24H PO ONE (14:00)
--- NOTE | 2020-04-11 15:55 | PDOC PROGRESS REPORT ---
Subjective Progress Note for:: 04/11/20 Subjective:: EKG sinus rhythm but continues to be bradycardic in the low 50s. No symptoms. HORTENCIA. Neurology seen patient. Reason For Visit: ACUTE KIDNEY INJURY,CHRONIC ATRIAL FIBRILLATION, Physical Exam Vital Signs: Temp Pulse Resp BP Pulse Ox 97.3 F 57 L 19 164/70 H 97 04/11/20 11:35 04/11/20 14:00 04/11/20 11:35 04/11/20 13:07 04/11/20 11:35 Intake & Output 04/10/20 04/11/20 04/12/20 06:59 06:59 06:59 Intake Total 300 2460 710 Output Total 300 Balance 0 2460 710 Weight 84.2 kg 85.8 kg 79.4 kg General appearance: PRESENT: no acute distress, cooperative, well-developed, well-nourished Head exam: PRESENT: atraumatic, normocephalic Eye exam: PRESENT: conjunctiva pink Mouth exam: PRESENT: moist Respiratory exam: PRESENT: clear to auscultation loida, symmetrical, unlabored Cardiovascular exam: PRESENT: bradycardia, RRR, +S2 Pulses: PRESENT: normal radial pulses GI/Abdominal exam: PRESENT: soft Rectal exam: PRESENT: deferred Musculoskeletal exam: PRESENT: normal inspection Neurological exam: PRESENT: alert, awake, oriented to person, oriented to place, oriented to time, oriented to situation Psychiatric exam: PRESENT: appropriate affect Skin exam: PRESENT: dry, intact, normal color Results Laboratory Results: 04/08/20 05:18 04/11/20 05:36 04/11/20 04/11/20 04/11/20 05:36 05:36 12:02 Sodium 138.6 Potassium 4.3 Chloride 110 H Carbon Dioxide 21 L Anion Gap 8 BUN 56 H Creatinine 2.72 H Est GFR ( Amer) 20 L Glucose 103 Calcium 8.5 Magnesium 2.1 PTH Intact 140.8 H Urine Color YELLOW Urine Appearance SLIGHTLY-CLOUDY Urine pH 5.0 Ur Specific [place] 1.016 Urine Protein 100 H Urine Glucose (UA) NEGATIVE Urine Ketones NEGATIVE Urine Blood SMALL H Urine Nitrite NEGATIVE Ur Leukocyte Esterase TRACE H Urine WBC (Auto) 13 Urine RBC (Auto) 3 04/07/20 04/08/20 19:46 05:18 Troponin I < 0.012 NT-Pro-B Natriuret Pep 6170 H Impressions: Chest X-Ray 04/07/20 19:35 IMPRESSION: 1. No significant interval changes since the prior examination dated 03/27/2020. Chronic changes in the lungs. No acute findings. 2. Cardiomegaly, stable finding. Renal Ultrasound 04/10/20 00:00 IMPRESSION: INCIDENTAL RENAL CYSTS. OTHERWISE UNREMARKABLE RENAL AND BLADDER ULTRASOUND. Assessment & Plan - Diagnosis (1) HORTENCIA (acute kidney injury) Is this a current diagnosis for this admission?: Yes Plan: Continue treatment likely multifactorial. Superimposed on chronic renal insufficiency Post cardioversion patient had transient hypotension Also patient presented with HORTENCIA and was diuresed we did have positive and worsening of renal function We will avoid nephrotoxic agents. Appreciate nephrology input. (2) Acute systolic heart failure Is this a current diagnosis for this admission?: Yes Plan: Acute systolic congestive heart failure Doing much better clinically Presently vomiting depleted and in HORTENCIA Based on renal function we will have to probably reinitiate maintenance diuretic at lower dose. This can be determined based on clinical course. (3) Chronic atrial fibrillation Is this a current diagnosis for this admission?: Yes Plan: Status post (right ear echocardiogram which was negative for left atrial thrombus. Direct-current cardioversion was successful at 200 J biphasic synchronized. Maintaining sinus rhythm although profound bradycardia of course cardioversion without symptoms. If he required atropine and glucagon. Presently heart rate is in the low 50s with no new symptoms or hemodynamic embarrassment. I suspect that she can be discharged on maintenance amiodarone at 200 mg oral daily Would entertain the possibility of instituting low-dose beta blockade metoprolol succinate 25 mg daily given LV dysfunction and congestive heart failure and also to suppress triggers for atrial fibrillation. Maintain systemic anticoagulation without interruption
[2020-04-11] MEDS: ZOLPIDEM TARTRATE 5 MG TABLET PO SCH (21:11)
[2020-04-11] MEDS: ISOSORBIDE MONONITRATE 30 MG TAB.ER.24H PO SCH (21:11)
[2020-04-12] MEDS: NORMAL SALINE 1000 ML 1,000 ML IV PRN (03:23)
[2020-04-12 05:54] LABS: BLOOD UREA NITROGEN 41 mg/dL (7-20); CALCIUM 7.8 mg/dL (8.4-10.2); CARBON DIOXIDE 22 mmol/L (22-30); CHLORIDE 114 mmol/L (98-107); GLUCOSE 91 mg/dL (75-110); POTASSIUM 4.2 mmol/L (3.6-5.0)
[2020-04-12 05:55] LABS: ANION GAP 3 (5-19)
[2020-04-12] MEDS: LEVOTHYROXINE SODIUM 0.1 MG TABLET PO SCH (06:40)
[2020-04-12] MEDS: MODAFINIL 100 MG TABLET PO SCH (10:07)
[2020-04-12] MEDS: ISOSORBIDE MONONITRATE 30 MG TAB.ER.24H PO SCH (10:07)
[2020-04-12] MEDS: APIXABAN 5 MG TABLET PO SCH (10:07)
[2020-04-12 10:42] LABS: UR PRO/CREAT RATIO RESULT 0.9 mg/mg (0.0-0.2); URINE CREATININE 168.1 mg/dL (15-278)
--- NOTE | 2020-04-12 11:50 | PDOC DISCHARGE SUMMARY ---
Impression - Admit/DC Date/PCP Admission Date/Primary Care Provider: 04/07/20 22:55 ARACELI ROSE MD Discharge Date: 04/12/20 - Discharge Diagnosis (1) Persistent atrial fibrillation with rapid ventricular response Is this a current diagnosis for this admission?: Yes (2) HORTENCIA (acute kidney injury) Is this a current diagnosis for this admission?: Yes (3) Sinus bradycardia Is this a current diagnosis for this admission?: Yes (4) Acute systolic heart failure Is this a current diagnosis for this admission?: Yes (5) Chronic anticoagulation Is this a current diagnosis for this admission?: Yes (6) Hypertension Is this a current diagnosis for this admission?: No - Additional Information Resuscitation Status: Full Code Discharge Diet: Cardiac Discharge Activity: Activity As Tolerated Referrals: ALEJANDRO SCHWARZ MD [ACTIVE STAFF] - ARACELI ROSE MD [Primary Care Provider] - 04/28/20 1:30 pm KAN ELLIS MD [ACTIVE PROVISIONAL STAFF] - Home Medications: Levothyroxine Sodium 200 mcg PO Q6AM 01/25/16 Modafinil [Provigil 100 mg Tablet] 200 mg PO DAILY 03/09/16 Apixaban [Eliquis 5 mg Tablet] 5 mg PO Q12 03/19/20 Ergocalciferol (Vitamin D2) [Drisdol 50,000 unit (1.25MG) Capsule] 50,000 unit PO TH@1000 03/19/20 Omeprazole 20 mg PO DAILYP PRN 03/19/20 Zolpidem Tartrate [Zolpidem Tartrate ER] 6.25 mg PO QHS 03/19/20 Colestipol HCl [Colestid 1 gm Tablet] 1 gm PO DAILYP PRN MDD LAST FILLED 08/16/19 FOR 9003/27/20 Telmisartan 80 mg PO DAILY 03/28/20 Amiodarone HCl [Cordarone 200 mg Tablet] 200 mg PO DAILY #80 tablet 04/12/20 History of Present Illiness History of Present Illness: According to admitting provider: COLIN BOURNE is a 89 year old female who presents the emergency room from Dr. Ellis's office due to persistent dyspnea on exertion and acute kidney injury noted on her laboratory evaluation. She admits that she was recently hospitalized for atrial fibrillation with a rapid ventricular response and during that hospital course was discovered to have systolic congestive heart failure with an ejection fraction of 30 to 35%. She was discharged to home on metoprolol 100 mg twice daily, Lasix 40 mg daily, amiodarone 400 mg twice daily and Eliquis 5 mg twice daily. Since discharge she has noted severe dyspnea with exertion accompanied by severe upper abdominal pain. Her dyspnea and abdominal pain are relieved by rest. She denies other associated or accompanying signs and symptoms. She has not identified any additional aggravating or ameliorating factors for her exertional dyspnea. In the emergency room she was noted to have an acute kidney injury and was also noted to be unable to tolerate even minimal exertion due to dyspnea. Dr. Schwarz has been consulted and plans to see the patient in the morning for possible cardioversion. She was subsequently admitted to the hospital for further evaluation and treatment. Hospital Course Hospital Course: Patient was admitted to the hospital for evaluation of dyspnea on exertion, HORTENCIA and persistent atrial fibrillation with rapid ventricular response. Regarding patient's HORTENCIA, her baseline creatinine is typically 1.2-1.45. However on admission she was 2.2 creatinine. This was thought to be secondary to diuretics therapy that was initiated recently. Her diuretics were held and she was administered some fluids with improvement of her creatinine to 1.5. However after experiencing hypotensive episode after receiving propofol for her SANDRA cardioversion, patient experienced HORTENCIA again with creatinine jumping to 2.7. She was rehydrated and her creatinine has improved from 2.7 yesterday to 1.8 today. As patient's creatinine is heading the right away, she is able to be discharged today with instructions to discontinue Lasix and stay hydrated. She will be following up with her primary care provider to monitor her renal function and work-up for proteinuria. Regarding patient's rapid A. fib, patient has had very hard to control A. fib and had been on high dose of amiodarone and Toprol-XL with heart rate persisting over 120s. This was contributing for the most part to her dyspnea. Given failure of medical therapy alone, SANDRA cardioversion was performed after which patient converted into sinus bradycardia. After the procedure, she had to be given some dose of atropine as well as glucagon. However, her heart rate has persisted into the high 40s to 50s. She does have a good response on ambulation. She is also not symptomatic from the bradycardia. I have discussed with Dr. Schwarz who believes this is lingering effects of the high-dose amio darone that she was on and should wear out of her system but is good to be discharged on a smsll amiodarone 200 mg daily which he feels will not will worsen bradycardia at such small dose. Toprol-XL has been discontinued. Patient is to continue Eliquis. Her dyspnea has remarkably improved since cardioversion. She will be following up with Dr. Alejandro Schwarz in the office. Physical Exam Vital Signs: Temp Pulse Resp BP Pulse Ox 97.8 F 48 L 21 H 150/56 H 98 04/12/20 07:46 04/12/20 07:46 04/12/20 07:46 04/12/20 07:46 04/12/20 07:46 Intake & Output 04/11/20 04/12/20 04/13/20 06:59 06:59 06:59 Intake Total 2460 3140 Output Total 400 Balance 2460 2740 Weight 85.8 kg 88.1 kg General appearance: PRESENT: no acute distress, cooperative Respiratory exam: PRESENT: crackles - mild basilar, symmetrical, unlabored. ABSENT: tachypnea, wheezes Cardiovascular exam: PRESENT: bradycardia, +S1, +S2. ABSENT: irregular rhythm, tachycardia GI/Abdominal exam: PRESENT: soft. ABSENT: rebound, rigid, tenderness Extremities exam: ABSENT: pedal edema Neurological exam: PRESENT: alert, awake, oriented to person, oriented to place, oriented to time Results Laboratory Results: WBC 9.0 10^3/uL (4.0-10.5) 04/08/20 05:18 RBC 3.75 10^6/uL (3.72-5.28) 04/08/20 05:18 Hgb 11.5 g/dL (12.0-15.5) L 04/08/20 05:18 Hct 34.5 % (36.0-47.0) L 04/08/20 05:18 MCV 92 fl (80-97) 04/08/20 05:18 MCH 30.7 pg (27.0-33.4) 04/08/20 05:18 MCHC 33.4 g/dL (32.0-36.0) 04/08/20 05:18 RDW 14.1 % (11.5-14.0) H 04/08/20 05:18 Plt Count 223 10^3/uL (150-450) 04/08/20 05:18 Lymph % (Auto) 9.4 % (13-45) L 04/07/20 19:46 [place] % (Auto) 7.1 % (3-13) 04/07/20 19:46 Eos % (Auto) 2.2 % (0-6) 04/07/20 19:46 Baso % (Auto) 0.9 % (0-2) 04/07/20 19:46 Absolute Neuts (auto) 7.1 10^3/uL (1.7-8.2) 04/07/20 19:46 Absolute Lymphs (auto) 0.8 10^3/uL (0.5-4.7) 04/07/20 19:46 Absolute Monos (auto) 0.6 10^3/uL (0.1-1.4) 04/07/20 19:46 Absolute Eos (auto) 0.2 10^3/uL (0.0-0.6) 04/07/20 19:46 Absolute Basos (auto) 0.1 10^3/uL (0.0-0.2) 04/07/20 19:46 Seg Neutrophils % 80.4 % (42-78) H 04/07/20 19:46 Sodium 138.5 mmol/L (137-145) 04/12/20 04:38 Potassium 4.2 mmol/L (3.6-5.0) 04/12/20 04:38 Chloride 114 mmol/L (98-107) H 04/12/20 04:38 Carbon Dioxide 22 mmol/L (22-30) 04/12/20 04:38 Anion Gap 3 (5-19) L 04/12/20 04:38 BUN 41 mg/dL (7-20) H 04/12/20 04:38 Creatinine 1.80 mg/dL (0.52-1.25) H 04/12/20 04:38 Est GFR ( Amer) 32 (>60) L 04/12/20 04:38 Est GFR (MDRD) Non-Af 27 (>60) L 04/12/20 04:38 Glucose 91 mg/dL (75-110) 04/12/20 04:38 POC Glucose 130 mg/dL (70-110) H 04/09/20 19:53 Calcium 7.8 mg/dL (8.4-10.2) L 04/12/20 04:38 Magnesium 1.9 mg/dL (1.6-2.3) 04/12/20 04:38 Total Bilirubin 0.4 mg/dL (0.2-1.3) 04/07/20 19:46 Direct Bilirubin 0.0 mg/dL (0.0-0.4) 04/07/20 19:46 Neonat Total Bilirubin Not Reportable 04/07/20 19:46 Neonat Direct Bilirubin Not Reportable 04/07/20 19:46 Neonat Indirect Bili Not Reportable 04/07/20 19:46 AST 24 U/L (14-36) 04/07/20 19:46 ALT 17 U/L (<35) 04/07/20 19:46 Alkaline Phosphatase 57 U/L (38-126) 04/07/20 19:46 Troponin I < 0.012 ng/mL 04/07/20 19:46 NT-Pro-B Natriuret Pep 6170 pg/mL (<450) H 04/08/20 05:18 Total Protein 7.6 g/dL (6.3-8.2) 04/07/20 19:46 Albumin 4.3 g/dL (3.5-5.0) 04/07/20 19:46 TSH 3.83 uIU/mL (0.47-4.68) 04/08/20 05:18 Free T4 2.10 ng/dL (0.78-2.19) 04/08/20 05:18 Free T3 pg/mL 1.60 pg/mL (2.77-5.27) L 04/08/20 05:18 PTH Intact 140.8 pg/mL (10.0-65.0) H 04/11/20 05:36 Urine Color YELLOW 04/11/20 12:02 Urine Appearance SLIGHTLY-CLOUDY 04/11/20 12:02 Urine pH 5.0 (5.0-9.0) 04/11/20 12:02 Ur Specific [place] 1.016 04/11/20 12:02 Urine Protein 100 mg/dL (NEGATIVE) H 04/11/20 12:02 Urine Glucose (UA) NEGATIVE mg/dL (NEGATIVE) 04/11/20 12:02 Urine Ketones NEGATIVE mg/dL (NEGATIVE) 04/11/20 12:02 Urine Blood SMALL (NEGATIVE) H 04/11/20 12:02 Urine Nitrite NEGATIVE (NEGATIVE) 04/11/20 12:02 Urine Bilirubin NEGATIVE (NEGATIVE) 04/11/20 12:02 Urine Urobilinogen NEGATIVE mg/dL (<2.0) 04/11/20 12:02 Ur Leukocyte Esterase TRACE (NEGATIVE) H 04/11/20 12:02 Urine WBC (Auto) 13 /HPF 04/11/20 12:02 Urine RBC (Auto) 3 /HPF 04/11/20 12:02 U Hyaline Cast (Auto) 4 /LPF 04/11/20 12:02 Urine Bacteria (Auto) TRACE /HPF 04/07/20 22:00 Squamous Epi Cells Auto 8 /HPF 04/11/20 12:02 Urine Mucus (Auto) RARE /LPF 04/11/20 12:02 Urine Creatinine 168.1 mg/dL (15-278) 04/11/20 12:02 Protein/Creatinin Ratio 0.9 mg/mg (0.0-0.2) H 04/11/20 12:02 Urine Total Protein 149.0 mg/dL (<12) H 04/11/20 12:02 Urine Ascorbic Acid NEGATIVE (NEGATIVE) 04/11/20 12:02 COVID-19 Source Cancelled 04/09/20 09:20 COVID-19 (PEMA) Cancelled 04/09/20 09:20 SARS-CoV-2 (PCR) NEGATIVE (NEGATIVE) 04/09/20 09:20 04/07/20 04/08/20 19:46 05:18 Troponin I < 0.012 NT-Pro-B Natriuret Pep 6170 H Impressions: Chest X-Ray 04/07/20 19:35 IMPRESSION: 1. No significant interval changes since the prior examination dated 03/27/2020. Chronic changes in the lungs. No acute findings. 2. Cardiomegaly, stable finding. Renal Ultrasound 04/10/20 00:00 IMPRESSION: INCIDENTAL RENAL CYSTS. OTHERWISE UNREMARKABLE RENAL AND BLADDER ULTRASOUND. Plan Time Spent: Less than 30 Minutes Stroke Is this a Stroke Patient?: No Acute Heart Failure - Is this a Heart Failure Patient?: Yes Documentation of LVEF assessment?: Yes LVEF: LVEF Less Than or Equal to 40% Anticoagulant Therapy: Yes Discharged on Evidence-Based Beta Blockers: No, document contraindications Reason(s) not discharged on Evidence-Based Beta Blockers: Bradycardia Discharged on ARNI?: No-Document Contraindications Reason(s) not discharged on ARNI: BRIDGET Discharged on ARB?: Yes Discharged on ACEI?: N/A Discharged on ARB For LVEF <35%, discharged on Aldosterone Antagonist?: N/A (LVEF > or = 35%) Follow-up Appointment scheduled within 7 days?: Yes
[2020-04-12 12:02] VITALS: BP 164/70
== END 2020-04-12 12:45 | disposition home or self-care (01) | DRG 308 ==
LOC: ER 18:24 → EH 22:55 → 4N 04-08 02:35
PROVIDERS: ADMIT Emergency Medicine; ATTEND Internal Medicine
PROC: B246ZZ4 Ultrasonography of Right and Left Heart, Transesophageal (ICD-10-PCS; 2020-04-09)
PROC: 5A2204Z Restoration of Cardiac Rhythm, Single (ICD-10-PCS; principal; 2020-04-09 12:30)
DX: I48.19 Other persistent atrial fibrillation (principal); I50.21 Acute systolic (congestive) heart failure; N17.0 Acute kidney failure with tubular necrosis; I13.0 Hypertensive heart and chronic kidney disease with heart failure and stage 1 through stage 4 chronic kidney disease, or unspecified chronic kidney disease; I85.00 Esophageal varices without bleeding; I49.8 Other specified cardiac arrhythmias; M06.9 Rheumatoid arthritis, unspecified; K74.60 Unspecified cirrhosis of liver; K76.0 Fatty (change of) liver, not elsewhere classified; G47.30 Sleep apnea, unspecified; N18.3 Chronic kidney disease, stage 3 (moderate); I95.81 Postprocedural hypotension; F32.9 Major depressive disorder, single episode, unspecified; E78.5 Hyperlipidemia, unspecified; E03.9 Hypothyroidism, unspecified; J43.9 Emphysema, unspecified; E78.00 Pure hypercholesterolemia, unspecified; D63.1 Anemia in chronic kidney disease; Z68.31 Body mass index [BMI] 31.0-31.9, adult; Z11.59 Encounter for screening for other viral diseases; Z79.01 Long term (current) use of anticoagulants; Z85.038 Personal history of other malignant neoplasm of large intestine; Z79.899 Other long term (current) drug therapy; Z90.49 Acquired absence of other specified parts of digestive tract; Z92.21 Personal history of antineoplastic chemotherapy; Z87.891 Personal history of nicotine dependence; Z88.0 Allergy status to penicillin; Z88.2 Allergy status to sulfonamides; Z88.7 Allergy status to serum and vaccine; Z82.49 Family history of ischemic heart disease and other diseases of the circulatory system; Z83.3 Family history of diabetes mellitus
CPT/HCPCS: 36415; 410; 71046; 76775; 80048; 80053; 81001; 82570; 82962; 83735; 83880; 83970; 84156; 84439; 84443; 84481; 84484; 85025; 85027; 87635; 93005; 93010; 93312; 93325; 99285; C9113; C9803; J0461; J1610; J2001; J2405; J2704; J3490; J7030; J7042